=== PATIENT | female | born 1975 | race Caucasian/White ===

== ENCOUNTER → 2025-02-25 | Outpatient (CLI) | payer OTHER, SELFPAY ==
--- NOTE | 2025-02-25 13:30 | EGD_PTH ---
PATIENT: REGULO NAVA LOC: [facility] U#:[id number] AGE/SX: 49/F ROOM: RE02/25/[address]: Dr. Keagan Rivas MD : 1975 BED: DIS: 02/25/2025 SPEC #: [id number] RECD: 02/25/25 14:53 STATUS: BERTHA REQ #: [id number] TORO: 02/25/25 13:[address]: Keagan Rivas DEPT: SURGICAL PATHOLOGY RECD BY: Yanique Blunt ENTERED: 02/26/25 14:55 SP TYPE: EGD BIOPSY OTHR DR: No Primary Care Phys Tissues: A - Duodenum, NOS B - Gastric mucous membrane C - Esophagus, NOS D - Esophagus, NOS Procedures: Immunohistochemical Stains Surgery Specimen Level IV HEADER OPERATION: EGD PRE-OP DIAGNOSIS: Esophageal polyp TISSUE SUBMITTED: A- Duodenum biopsy, B- Antral biopsy, C- Distal esophagus biopsy, D- Mid esophageal biopsy MICROSCOPIC DIAGNOSIS A. Duodenum, biopsy: - Normal villous architecture without increased intraepithelial lymphocytes. B. Antrum, biopsy: - Oxyntic gastric mucosa with features of reactive gastropathy. - IHC negative for H.pylori organisms. C. Distal esophagus, biopsy: - Benign squamous mucosa negative for eosinophils. - No columnar mucosa observed. D. Mid esophagus, biopsy: - Benign squamous mucosa negative for eosinophils. MICROSCOPIC DESCRIPTION Slides are reviewed. All matched controls reacted appropriately. These tests were developed and their performance characteristics determined by [facility]. They may not have been cleared or approved by the [place] Food and Drug Administration. The FDA has determined that such clearance or approval is not necessary.? The above immunohistochemical/dualISH?markers are reviewed by the Pathologist. GROSS DESCRIPTION A. Received in fixative is one container labeled with the patient's name and designated Duodenum biopsy. The specimen consists of two irregular fragments of light mcdaniels soft tissue that in aggregate measure 0.3 x 0.2 x 0.2 cm. The specimen is totally submitted in one cassette. B. Received in fixative is one container labeled with the patient's name and designated Antrum biopsy. The specimen consists of one irregular fragment of light mcdaniels soft tissue that measures 0.6 x 0.5 x 0.2 cm. The specimen is totally submitted in one cassette. C. Received in fixative is one container labeled with the patient's name and designated Distal esophagus biopsy. The specimen consists of two irregular fragments of light mcdaniels soft tissue that in aggregate measure 0.8 x 0.4 x 0.2 cm. The specimen is totally submitted in one cassette. D. Received in fixative is one container labeled with the patient's name and designated Mid esophageal biopsy. The specimen consists of one irregular fragment of light mcdaniels soft tissue that measures 0.5 x 0.3 x 0.1 cm. The specimen is totally submitted in one cassette. MS/mr 02/26/2025 CPT:[id number]
--- OUTSIDE RECORDS SUMMARY | 2025-02-25 20:35 | XMS RPT_ITS | CCD ---
Author Organization [facility] Care Team Providers Care 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 Name Role Phone Haagen MANAGER ACQUISITION.HOOP RIVETING MACHINE OPERATOR HELPER, Dorothea Primary Care Provider HAAGEN, DOROTHEA Primary Care Unavailable JOSHUA, KETTY Referring Unavailable DINORAH FENTON Attending Unavailable DINORAH FENTON Admitting Unavailable Haagen MANAGER ACQUISITION.BARAK, Dorothea Primary Care Provider Haagen MANAGER ACQUISITION.BARAK, Dorothea Primary Care Provider Guero Dejesus Attending Unavailable Borlinnea, Guero Attending Unavailable Borlinnea, Guero Attending Unavailable Borlinnea, Guero Attending Unavailable Haagen MANAGER ACQUISITION.BARAK, [facility] Primary Care Provider HAAGEN, DOROTHEA Referring Unavailable HAAGEN, DOROTHEA Primary Care Unavailable HAAGEN, DOROTHEA Referring Unavailable HAAGEN, DOROTHEA Primary Care Unavailable HAAGEN, DOROTHEA Attending Unavailable HAAGEN, DOROTHEA Primary Care Unavailable HAAGEN, DOROTHEA Referring Unavailable HAAGEN, DOROTHEA Primary Care Unavailable DINORAH FENTON Attending Unavailable HAAGEN, DOROTHEA Primary Care Unavailable HAAGEN, DOROTHEA Referring Unavailable Allergies Allergy Classification Reported Allergen(s) Allergy Type Date of Onset Reaction(s) Facility (18 sources) Acetaminophen / oxyCODONE; Translations: [OXYCODONE-ACETAM INOPHEN] Drug Allergy 8 Rash [facility] Work Phone: (18 sources) meloxicam; Translations: [MELOXICAM] Drug Allergy 3 Swelling, Anaphylaxis [facility] Work Phone: (18 sources) metroNIDAZOLE; Translations: [METRONIDAZOLE] Drug Allergy 2 [facility] Work Phone: (18 sources) Sodium; Translations: [SODIUM] Propensity to adverse reactions to drug 2 Rash [facility] (1 source) Acetaminophen Drug Allergy 4 [facility] (1 source) meloxicam Drug Allergy 4 [facility] (1 source) metroNIDAZOLE Drug Allergy 4 [facility] (1 source) oxyCODONE Drug Allergy 4 [facility] Medications Current Medications Medication Drug Class(es) Dates Sig (Normalized) Sig (Original) amoxicillin 875 mg / clavulanate 125 mg oral tablet (1 source) Penicillin-class Antibacterial Start: 07-01-2022 End: 07-06-2022 take 1 tablet by mouth twice daily amoxicillin-clavula antione acid (AUGMENTIN) 875-125 mg per tablet Indications: Acute rhinosinusitis Take 1 tablet by mouth twice daily for 5 days. 10 tablet 0 07/01/2022 07/06/2022 Active Comment on above: Take 1 tablet by viktoriya twice daily for 5 days. clobetasol propionate 0.5 mg/ml topical solution (7 sources) Corticosteroid Start: 12-25-2022 Clobetasol Propionate (TEMOVATE) 0.05 % external solution APPLY TO THE SCALP NIGHTLY FOR UP TO 2 WEEKS WHEN FLARED, 2-3X WEEKLY FOR MAINTENANCE IF NEEDED 12/25/2022 Active Comment on above: APPLY TO THE SCALP N IGHTLY FOR UP TO 2 WEEKS WHEN FLARED, 2-3X WEEKLY FOR MAINTENANCE IF NEEDED COMPOUNDED PRESCRIPTION (16 sources) COMPOUNDED PRESCRIPTION Taking Plexis supplement for colon, multivitamin and probiotic daily Active COMPOUNDED PRESC RIPTION Taking Plexis supplement for colon, multivitamin and probiotic daily 0 Active Comment on above: Taking Plexis supple ment for colon, multivitamin and probiotic daily ibuprofen 800 mg oral tablet (2 sources) Nonsteroidal Anti-inflammatory Drug take 1 tablet by mouth every eight hours as needed ibuprofen (MOTRIN) 800 mg tablet Take 800 mg by mouth every 8 hours as needed for pain. Active ketoconazole 20 mg/ml medicated shampoo (7 sources) Azole Antifungal Start: 10-31-19 ketoconazole (NIZORAL) 2 % shampoo PLEASE SEE ATTACHED FOR DETAILED DIRECTIONS 10/30/2022 Active Comment on above: PLEASE SEE ATTACHED FOR DETAILED DIRECTIONS omeprazole 20 mg delayed release oral capsule (4 sources) Proton Pump Inhibitor Start: 04-10-20 take 1 capsule by mouth once daily before breakfast omeprazole (PRILOSEC) 20 mg capsule Indications: Heartburn Take 1 capsule by mouth daily before breakfast. 1/2 hr before meal. 30 capsule 3 04/10/2024 Active Completed/Discontinued Medications Medication Drug Class(es) Dates Sig (Normalized) Sig (Original) fluticasone propionate 0.05 mg/actuat metered dose nasal spray (4 sources) Corticosteroid Start: 05-15-2021 take 1 spray(s) nasal route once daily at bedtime fluticasone (FLONASE) 50 mcg/actuation nasal spray Indications: URI, acute Use 1 Leland in each nostril daily at bedtime. 18.2 mL 0 05/15/2021 Active Comment on above: Use 1 Leland in each nostril daily at bedtime. Problems Active Problems Problem Classification Problem Date Documented Da te Episodic/Chronic Diseases of white blood cells (2 sources) Leukocytosis; Translations: [Elevated white blood cell count, unspecified] Onset: 04-28-2024 04-22-2024 Chronic Disorders of lipid metabolism (1 source) Mixed hyperlipidemia; Translations: [Mixed hyperlipidemia] 04-22-2024 Chronic Esophageal disorders (7 sources) Gastro-esophageal reflux disease with esophagitis; Translations: [Gastroesophageal reflux disease with esophagitis without hemorrhage] Onset: 01-31-2023 01-31-2023 Chronic Esophageal disorders (3 sources) Polyp of esophagus; Translations: [Esophageal polyp] 02-19-2023 Episodic Esophageal disorders (1 source) Esophageal disorders; Translations: [Gastroesophageal reflux disease with esophagitis without hemorrhage] Onset: 01-31-2023 Genitourinary symptoms and ill-defined conditions (1 source) Genuine stress incontinence; Translations: [Stress incontinence (female) (male)] Chronic Immunizations and screening for infectious disease (2 sources) Viral screening status; Translations: [Encounter for screening for other viral diseases] Episodic Osteoarthritis (1 source) Unilateral primary osteoarthritis, left knee; Translations: [Unilateral primary osteoarthritis, left knee] Onset: 03-09-2024 Chronic Other diseases of bladder and urethra (1 source) Overactive bladder; Translations: [Overactive bladder] 04-10-2024 Chronic Other diseases of bladder and urethra (1 source) Overactive bladder; Translations: [OAB (overactive bladder)] Onset: 04-10-2024 Chronic Other gastrointestinal disorders (3 sources) Heartburn; Translations: [Heartburn] Episodic Other gastrointestinal disorders (1 source) Dysphagia, unspecified; Translations: [Dysphagia, unspecified type] Onset: 01-31-2023 Episodic Other screening for suspected conditions (not mental disorders or infectious disease) (16 sources) Patient encounter status; Translations: [Encounter for screening for malignant neoplasm of colon] Onset: 01-31-2023 Episodic Other upper respiratory infections (1 source) Acute rhinosinusitis; Translations: [Acute sinusitis, unspecified] Episodic Unclassified (1 source) Esophageal polyp; Translations: [Esophageal polyp] Onset: 02-01-2025 Past or Other Problems Problem Classification Problem Date Documented Da te Episodic/Chronic Abdominal hernia (8 sources) Diaphragmatic hernia without obstruction or gangrene; Translations: [Hiatal hernia] Onset: 01-31-2023 01-31-2023 Episodic Other connective tissue disease (16 sources) Calcaneal spur; Translations: [Calcaneal spur, unspecified foot] Onset: 02-07-2012 02-07-2012 Episodic Other connective tissue disease (16 sources) Plantar fascial fibromatosis; Translations: [Plantar fascial fibromatosis] Onset: 05-12-2013 05-12-2013 Episodic Other gastrointestinal disorders (7 sources) Dysphagia; Translations: [Dysphagia, unspecified] Onset: 01-31-2023 01-31-2023 Episodic Other gastrointestinal disorders (1 source) Heartburn; Translations: [Heartburn] Onset: 04-10-2024 Episodic Results Test Name Value Interpretation Reference Range Facility [facility] 02-01-2025 CNOV Office Visit (LORNA ) REGULO ENRIQUEZ ([id number]) 1975 F Date Time Provider Department 02/01/25 2:00 PM DINORAH FENTON During your visit today, we recorded the following information about you: Temperature Pulse Respiration Blood pressure 99.2 degrees 92/minute 12/minute 126/86 Weight Height 100.2 kg 1.676 m Eli Valenzuela LPN 02/02/2025 3:59 PM Signed REVIEW OF SYSTEMS: General: The patient denies fatigue, denies weight loss, denies weight gain, denies feeling hot, and denies feelings of cold. Eyes: The patient denies glaucoma, denies eye injury/surgery, wears glasses or contacts. Ear/Nose/Throat: The patient denies allergies, denies hayfever, denies ear infections, and denies bloody noses. Cardiovascular: The patient denies chest pain, denies heart disease, denies high blood pressure,denies cardiac stent, denies prior heart attack, denies irregular heart beat, denies high cholesterol, denies poor circulation, denies heart failure, other cardiac issues, denies claudication, denies cold feet, denies peripheral arterial stent. Respiratory: The patient denies tuberculosis, denies pneumonia, denies frequent cough, denies pulmonary embolism, denies shortness of breath, and denies coughing up blood. Gastrointestinal: The patient denies difficulty swallowing, notes acid reflux, denies ulcers, denies vomiting, denies jaundice/hepatitis, denies gallbladder problems, denies black or tarry stools, denies hemorrhoids, denies bleeding from rectum, denies diverticulitis, notes constipation, denies diarrhea, denies loss of stool control, and denies hernias. Kidney/Bladder: The patient denies kidney stones, denies urine infections, and denies bloody urine. Skin: The patient denies a history of skin cancer, denies bleeding/changing moles, and denies a history of skin rash. Neurologic: The patient denies a history of epilepsy/convulsions, denies headaches, denies head/spinal injuries, and denies stroke/TIA. Psychiatric: The patient denies psychiatric medications, denies depression, and denies voices, denies substance abuse. Endocrine: The patient denies thyroid disorders, denies diabetes, and denies hormonal problems. Hematologic: The patient denies a history of bruising, denies bleeding, and denies anemia, denies blood clots. Infections: The patient denies a history of measles and mumps, denies rheumatic fever, and denies sexually transmitted diseases. Musculoskeletal: The patient denies back pain/injury, denies back problems, denies sciatica, notes knee/foot trouble, denies arthritis, or denies gout. When was patient's last Mammogram screening? 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 She requires a follow up surveillance EGD. She denies dysphagia. She denies heartburn. She denies emesis. PAST MEDICAL HISTORY Diagnosis Date Anal fissure RECTAL BLEEDING, PELVIC FLOOR DYSFUNCTION Calcaneal spur Endometriosis Esophageal polyp GERD (gastroesophageal reflux disease) Hiatal hernia refers hx of flap not working properly. PMH - PAST MEDICAL HISTORY OF PELVIC FLOOR DYSFUNCTION Sciatica Seasonal allergies Unspecified hemorrhoids without mention of complication PAST SURGICAL HISTORY Procedure Laterality Date DELIVERY ONLY , low cervical COLONOSCOPY 10/28/2002 COLONOSCOPY 01/31/2023 EGD 01/31/2023 FASCIECTOMY PLANTAR FASCIA PARTIAL SPX 06/12/2014 DR Best FISSURECTOMY INCL SPHINCTEROTOMY WHEN PERFORMED HEMORRHOIDECTOMY NTRNL AND XTRNL 1 COLUMN/GROUP INSERT INTRAUTERINE DEVICE 10/04/2006 [facility] KNEE ARTHROSCOP MENISCUS REPAIR MED/LAT Right 11/10/2024 Dr. Keagan White, [facility] KNEE SURGERY HX Left 08/2020 torn meniscus and some repair work. LAPS ABD PRTMANDOMENTUM DX W/WO SPEC BR/WA SPX Laparoscopy X2 EXPLORATORY LIG/TRNSXJ FLP TUBE ABDL/VAG APPR UNI/BI VAGINAL HYSTERECTOMY UTERUS 250 GM/< 08/14/2007 Hysterectomy, vaginal Current Outpatient Medications Medication Sig ibuprofen (MOTRIN) 800 mg tablet Take 800 mg by mouth every 8 hours as needed for pain. omeprazole (PRILOSEC) 20 mg capsule Take 1 capsule by mouth daily before breakfast. 1/2 hr before meal. Clobetasol Propionate (TEMOVATE) 0.05 % external solution APPLY TO THE SCALP NIGHTLY FOR UP TO 2 WEEKS WHEN FLARED, 2-3X WEEKLY FOR MAINTENANCE IF NEEDED COMPOUNDED PRESCRIPTION Taking Plexis supplement for colon, multivitamin and probiotic daily ketoconazole (NIZORAL) 2 % shampoo PLEASE SEE ATTACHED FOR DETAILED DIRECTIONS ALLERGIES: Metronidazol (more content not included)... Normal [facility] BONY SCREENING W TOMOon 02-01 BONY SCREENING W KYARA * * *Final Report* * * DATE OF EXAM: Feb 01 2025 8:47AM [id number] - BONY SCREENING W KYARA / PROCEDURE REASON: Encounter for screening mammogram for breast cancer * * * * Physician Interpretation * * * * RESULT: [facility] [address] [place] [address] #[id number] - BONY SCREENING W KYARA HISTORY: 49 year-old patient presents for screening. Patient is asymptomatic in both breasts. Patient states no personal history of breast cancer. COMPARISON STUDIES: The present examination has been compared to prior imaging studies dated 04/29/2018 (mammogram), 08/06/2019 (mammogram), 03/13/2021 (mammogram), 04/18/2021 (ultrasound), 04/18/2021 (mammogram), 01/08/2023 (mammogram) and 02/20/2023 (mammogram). MAMMOGRAM TECHNIQUE: The study was acquired using full field digital technology and interpreted from soft copy. Digital Breast Tomosynthesis (DBT) images were obtained and used to assist in the interpretation of this examination. MAMMOGRAM FINDINGS: The breasts are heterogeneously dense, which may obscure small masses. No suspicious masses, calcifications or other abnormalities are seen in either breast. There are no significant interval changes. IMPRESSION: There is no mammographic evidence of malignancy in either breast. Routine screening mammogram is recommended. Annual mammogram will be due in 1 year. BI-RADS Category 1: Negative RISK: Based on the Tyrer-Cuzick (TC) risk assessment model, this patient has a 8.6% lifetime risk of developing breast cancer, meaning they are at average risk for developing breast cancer. However, this is only an estimate based on available history provided on the patient's questionnaire. We encourage all patients to talk with their providers about these results, further recommendations for managing breast health, and appropriate supplemental screening options if the patient has dense breast tissue. Interpreting Radiologist: Dariana Bah M.D. Electronically signed on: 02/02/2025 Software Computer Specialist: PINO Transcribe Date/Time: Feb 01 2025 8:37A Dictated by: DARIANA BAH MD This examination was interpreted and the report reviewed and electronically signed by: DARIANA BAH MD on Feb 02 2025 9:10PM EST [id number] Normal [facility] CBC W Auto Differential pane l (Bld)on 04-28-2024 Basophils (Bld) [#/Vol] 0.03 10*3/uL Normal <0.11 [facility] Comment on above: Order Comment: Specimen Type: BLOOD SPEC IMEN Ordering Facility: [facility] Address: [address] [place] [address] Performed By: #### 5 7021-8 #### [facility] CLIA [id number] [address] [place] [address] [place] Basophils/100 WBC (Bld) 0.4 % Normal [facility] Comment on above: Order Comment: Specimen Type: BLOOD SPEC IMEN Ordering Facility: [facility] Address: [address] [place] [address] Performed By: #### 5 7021-8 #### [facility] CLIA [id number] [address] [place] [address] [place] Differential cell count method Nom (Bld) Auto Normal [facility] Comment on above: Order Comment: Specimen Type: BLOOD SPEC IMEN Ordering Facility: [facility] Address: [address] [place] [address] Performed By: #### 5 7021-8 #### [facility] CLIA [id number] [address] [place] [address] [place] Eosinophils (Bld) [#/Vol] 0.27 10*3/uL Normal <0.46 [facility] Comment on above: Order Comment: Specimen Type: BLOOD SPEC IMEN Ordering Facility: [facility] Address: [address] [place] [address] Performed By: #### 5 7021-8 #### [facility] CLIA [id number] [address] [place] [address] [place] Eosinophils/100 WBC (Bld) 3.8 % Normal [facility] Comment on above: Order Comment: Specimen Type: BLOOD SPEC IMEN Ordering Facility: [facility] Address: [address] [place] [address] Performed By: #### 5 7021-8 #### [facility] CLIA [id number] [address] [place] [address] [place] Erythrocyte distribution width (RBC) [Ratio] 14.6 % Normal 11.5-15.0 [facility] Comment on above: Order Comment: Specimen Type: BLOOD SPEC IMEN Ordering Facility: [facility] Address: [address] [place] [address] Performed By: #### 5 7021-8 #### [facility] CLIA [id number] [address] [place] [address] [place] Hematocrit (Bld) [Volume fraction] 41.5 % Normal 36.0-46.0 [facility] Comment on above: Order Comment: Specimen Type: BLOOD SPEC IMEN Ordering Facility: [facility] Address: [address] [place] [address] Performed By: #### 5 7021-8 #### [facility] CLIA [id number] [address] [place] [address] [place] Hemoglobin (Bld) [Mass/Vol] 13.1 g/dL Normal 11.5-15.5 [facility] Comment on above: Order Comment: Specimen Type: BLOOD SPEC IMEN Ordering Facility: [facility] Address: [address] [place] [address] Performed By: #### 5 7021-8 #### [facility] CLIA [id number] [address] [place] [address] [place] Immature granulocytes (Bld) [#/Vol] 0.04 10*3/uL Normal <0.10 [facility] Comment on above: Order Comment: Specimen Type: BLOOD SPEC IMEN Ordering Facility: [facility] Address: [address] [place] [address] Performed By: #### 5 7021-8 #### [facility] CLIA [id number] [address] [place] [address] [place] Immature granulocytes/100 WBC (Bld) 0.6 % Normal [facility] Comment on above: Order Comment: Specimen Type: BLOOD SPEC IMEN Ordering Facility: [facility] Address: [address] [place] [address] Performed By: #### 5 7021-8 #### [facility] CLIA [id number] [address] [place] [address] [place] Lymphocytes (Bld) [#/Vol] 1.58 10*3/uL Normal 1.00-4.00 [facility] Comment on above: Order Comment: Specimen Type: BLOOD SPEC IMEN Ordering Facility: [facility] Address: [address] [place] [address] Performed By: #### 5 7021-8 #### [facility] CLIA [id number] [address] [place] [address] [place] Lymphocytes/100 WBC (Bld) 22.3 % Normal [facility] Comment on above: Order Comment: Specimen Type: BLOOD SPEC IMEN Ordering Facility: [facility] Address: [address] [place] [address] Performed By: #### 5 7021-8 #### [facility] CLIA [id number] [address] [place] [address] [place] MCH (RBC) [Entitic mass] 26.9 pg Normal 26.0-34.0 [facility] Comment on above: Order Comment: Specimen Type: BLOOD SPEC IMEN Ordering Facility: [facility] Address: [address] [place] [address] Performed By: #### 5 7021-8 #### [facility] CLIA [id number] [address] [place] [address] [place] MCHC (RBC) [Mass/Vol] 31.6 g/dL Normal 30.5-36.0 [facility] Comment on above: Order Comment: Specimen Type: BLOOD SPEC IMEN Ordering Facility: [facility] Address: [address] [place] [address] Performed By: #### 5 7021-8 #### [facility] CLIA [id number] [address] [place] [address] [place] MCV (RBC) [Entitic vol] 85.2 fL Normal 80.0-100.0 [facility] Comment on above: Order Comment: Specimen Type: BLOOD SPEC IMEN Ordering Facility: [facility] Address: [address] [place] [address] Performed By: #### 5 7021-8 #### [facility] CLIA [id number] [address] [place] [address] [place] Monocytes (Bld) [#/Vol] 0.76 10*3/uL Normal <0.87 [facility] Comment on above: Order Comment: Specimen Type: BLOOD SPEC IMEN Ordering Facility: [facility] Address: [address] [place] [address] Performed By: #### 5 7021-8 #### [facility] CLIA [id number] [address] [place] [address] [place] Monocytes/100 WBC (Bld) 10.7 % Normal [facility] Comment on above: Order Comment: Specimen Type: BLOOD SPEC IMEN Ordering Facility: [facility] Address: [address] [place] [address] Performed By: #### 5 7021-8 #### [facility] CLIA [id number] [address] [place] [address] [place] Neutrophils (Bld) [#/Vol] 4.41 10*3/uL Normal 1.45-7.50 [facility] Comment on above: Order Comment: Specimen Type: BLOOD SPEC IMEN Ordering Facility: [facility] Address: [address] [place] [address] Performed By: #### 5 7021-8 #### [facility] CLIA [id number] [address] [place] [address] [place] Neutrophils/100 WBC (Bld) 62.2 % Normal [facility] Comment on above: Order Comment: Specimen Type: BLOOD SPEC IMEN Ordering Facility: [facility] Address: [address] [place] [address] Performed By: #### 5 7021-8 #### [facility] CLIA [id number] [address] [place] [address] [place] Nucleated RBC (Bld) [#/Vol] 10*3/uL Normal <0.01 [facility] Comment on above: Order Comment: Specimen Type: BLOOD SPEC IMEN Ordering Facility: [facility] Address: [address] [place] [address] Performed By: #### 5 7021-8 #### [facility] CLIA [id number] [address] [place] [address] [place] Nucleated RBC/100 WBC (Bld) [Ratio] 0.0 /100 WBC Normal [facility] Comment on above: Order Comment: Specimen Type: BLOOD SPEC IMEN Ordering Facility: [facility] Address: [address] [place] [address] Performed By: #### 5 7021-8 #### [facility] CLIA [id number] [address] [place] [address] [place] Platelet mean volume (Bld) [Entitic vol] 10.4 fL Normal 9.0-12.7 [facility] Comment on above: Order Comment: Specimen Type: BLOOD SPEC IMEN Ordering Facility: [facility] Address: [address] [place] [address] Performed By: #### 5 7021-8 #### [facility] CLIA [id number] [address] [place] [address] [place] Platelets (Bld) [#/Vol] 466 10*3/uL High 150-400 [facility] Comment on above: Order Comment: Specimen Type: BLOOD SPEC IMEN Ordering Facility: [facility] Address: [address] [place] [address] Performed By: #### 5 7021-8 #### [facility] CLIA [id number] [address] [place] [address] [place] RBC (Bld) [#/Vol] 4.87 10*6/uL Normal 3.90-5.20 [facility] Comment on above: Order Comment: Specimen Type: BLOOD SPEC IMEN Ordering Facility: [facility] Address: [address] [place] [address] Performed By: #### 5 7021-8 #### [facility] CLIA [id number] [address] [place] [address] [place] WBC (Bld) [#/Vol] 7.09 10*3/uL Normal 3.70-11.00 [facility] [facility] Comment on above: Order Comment: Specimen Type: BLOOD SPEC IMEN Ordering Facility: [facility] Address: [address] [place] [address] Performed By: #### 5 7021-8 #### [facility] CLIA [id number] [address] [place] [address] [place] Harley 04-22-2024 BARAKN Telephone (FAMPWS) REGULO ENRIQUEZ ([id number]) 1975 F Date Time Provider Department 04/22/24 DOROTHEA BAUMANN During your visit today, we recorded the following information about you: Dorothea Baumann APRN.CNP 04/22/2024 2:58 PM Signed Can please let patient know that I received her lab results. Her cholesterol level is elevated. Please really work on healthy diet/exercise. Can we send her information on a low cholesterol diet, please. Her white blood count was just a little elevated. Any recent infections or colds? Lets have her repeat this in a couple of weeks to ensure that it has returned to normal. Everything else looked okay. Dorothea Baumann APRN.CNP The 10-year ASCVD risk score (Reji DK, et al., 2019) is: 1% Values used to calculate the score: Age: 48 years Sex: Female Is Non- : No Diabetic: No Tobacco smoker: No Systolic Blood Pressure: 110 mmHg Is BP treated: No HDL Cholesterol: 58 mg/dL Total Cholesterol: 274 mg/dL Zaki Gaitan LPN 04/22/2024 3:49 PM Signed TC to pt, notified of response/provider response. Pt denies any infections or colds. She will return in the next few weeks to repeat labs. Zaki Gaitan LPN Allergies As of Date: 04/22/2024 Noted Allergy Reaction METRONIDAZOLE 07/29/2002 Comments: had flagyl in IV as noted above MOBIC (MELOXICAM) 03/10/2013 7 - Swelling 10 - Anaphylaxis PERCOCET (OXYCODONE-ACETAMINOPHEN)08/12 2 - Rash SODIUM 07/01/2002 2 - Rash Comments: Itching and Rash - patient notes it was sodium as part of a topical medication. Date Reviewed: 04/10/2024 Reviewed by: Zaki Gaitan LPN - Fully Assessed Reason for Visit: Results [95] Primary Visit Diagnosis:Hyperlipidemia, mixed [E78.2] Other Visit Diagnosis:Leukocytosis, unspecified type [D72.829] Order(s):LIPID PANEL BASIC [SQLIPB] Order #: [id number] FUTURE COMPLETE BLOOD COUNT AND DIFFERENTIAL [SQCBCDIF] Order #: [id number] FUTURE Prescriptions as of 04/22/2024 - omeprazole (PRILOSEC) 20 mg capsule Take 1 capsule by mouth daily before breakfast. 1/2 hr before meal. - ketoconazole (NIZORAL) 2 % shampoo PLEASE SEE ATTACHED FOR DETAILED DIRECTIONS - Clobetasol Propionate (TEMOVATE) 0.05 % external solution APPLY TO THE SCALP NIGHTLY FOR UP TO 2 WEEKS WHEN FLARED, 2-3X WEEKLY FOR MAINTENANCE IF NEEDED - COMPOUNDED PRESCRIPTION Taking Plexis supplement for colon, multivitamin and probiotic daily Facility-Administered Medications as of 04/22/2024 - propofol injection (DIPRIVAN) - lidocaine 100 mg/5 mL (2 %) IV syringe - ondansetron (PF) injection (ZOFRAN) Meds Comments as of 01/06/2016: Dr. Hunt's Essentials Colon Start Plus, 2 capsules daily. Problem List As Of Date 04/22/2024 Noted Resolved Calcaneal spur [M77.30] 02/07/2012 Plantar fascial fibromatosis [M72.2] 05/12/2013 Dysphagia [R13.10] 01/31/2023 Gastroesophageal reflux disease with esophagiti*01/31/2023 Hiatal hernia [K44.9] 01/31/2023 Special screening for malignant neoplasms, colo*01/31/2023 Encounter Status:Closed by ZAKI GAITAN on 04/22/24 Normal [facility] CBC W Auto Differential pane l (Bld)on 04-20-2024 Basophils (Bld) [#/Vol] 0.04 10*3/uL Normal <0.11 [facility] Comment on above: Order Comment: Specimen Type: BLOOD SPEC IMEN Ordering Facility: [facility] Address: [address] [place] [address] Performed By: #### 5 7021-8 #### [facility] CLIA [id number] [address] [place] [address] [place] [address] [place] Basophils/100 WBC (Bld) 0.3 % Normal [facility] Comment on above: Order Comment: Specimen Type: BLOOD SPEC IMEN Ordering Facility: [facility] Address: [address] [place] [address] Performed By: #### 5 7021-8 #### [facility] CLIA [id number] [address] [place] [address] [place] Differential cell count method Nom (Bld) Auto Normal [facility] Comment on above: Order Comment: Specimen Type: BLOOD SPEC IMEN Ordering Facility: [facility] Address: [address] [place] [address] Performed By: #### 5 7021-8 #### [facility] CLIA [id number] [address] [place] [address] [place] Eosinophils (Bld) [#/Vol] 0.19 10*3/uL Normal <0.46 [facility] Comment on above: Order Comment: Specimen Type: BLOOD SPEC IMEN Ordering Facility: [facility] Address: [address] [place] [address] Performed By: #### 5 7021-8 #### [facility] CLIA [id number] [address] [place] [address] [place] Eosinophils/100 WBC (Bld) 1.5 % Normal [facility] Comment on above: Order Comment: Specimen Type: BLOOD SPEC IMEN Ordering Facility: [facility] Address: [address] [place] [address] Performed By: #### 5 7021-8 #### [facility] CLIA [id number] [address] [place] [address] [place] Erythrocyte distribution width (RBC) [Ratio] 14.9 % Normal 11.5-15.0 [facility] Comment on above: Order Comment: Specimen Type: BLOOD SPEC IMEN Ordering Facility: [facility] Address: [address] [place] [address] Performed By: #### 5 7021-8 #### [facility] CLIA [id number] [address] [place] [address] [place] Hematocrit (Bld) [Volume fraction] 42.9 % Normal 36.0-46.0 [facility] Comment on above: Order Comment: Specimen Type: BLOOD SPEC IMEN Ordering Facility: [facility] Address: [address] [place] [address] Performed By: #### 5 7021-8 #### [facility] CLIA [id number] [address] [place] [address] [place] Hemoglobin (Bld) [Mass/Vol] 13.6 g/dL Normal 11.5-15.5 [facility] Comment on above: Order Comment: Specimen Type: BLOOD SPEC IMEN Ordering Facility: [facility] Address: [address] [place] [address] Performed By: #### 5 7021-8 #### [facility] CLIA [id number] [address] [place] [address] [place] Immature granulocytes (Bld) [#/Vol] 0.21 10*3/uL High <0.10 [facility] Comment on above: Order Comment: Specimen Type: BLOOD SPEC IMEN Ordering Facility: [facility] Address: [address] [place] [address] Performed By: #### 5 7021-8 #### [facility] CLIA [id number] [address] [place] [address] [place] Immature granulocytes/100 WBC (Bld) 1.6 % Normal [facility] Comment on above: Order Comment: Specimen Type: BLOOD SPEC IMEN Ordering Facility: [facility] Address: [address] [place] [address] Performed By: #### 5 7021-8 #### [facility] CLIA [id number] [address] [place] [address] [place] Lymphocytes (Bld) [#/Vol] 1.46 10*3/uL Normal 1.00-4.00 [facility] Comment on above: Order Comment: Specimen Type: BLOOD SPEC IMEN Ordering Facility: [facility] Address: [address] [place] [address] Performed By: #### 5 7021-8 #### [facility] CLIA [id number] [address] [place] [address] [place] Lymphocytes/100 WBC (Bld) 11.4 % Normal [facility] Comment on above: Order Comment: Specimen Type: BLOOD SPEC IMEN Ordering Facility: [facility] Address: [address] [place] [address] Performed By: #### 5 7021-8 #### [facility] CLIA [id number] [address] [place] [address] [place] MCH (RBC) [Entitic mass] 27.4 pg Normal 26.0-34.0 [facility] Comment on above: Order Comment: Specimen Type: BLOOD SPEC IMEN Ordering Facility: [facility] Address: [address] [place] [address] Performed By: #### 5 7021-8 #### [facility] CLIA [id number] [address] [place] [address] [place] MCHC (RBC) [Mass/Vol] 31.7 g/dL Normal 30.5-36.0 [facility] Comment on above: Order Comment: Specimen Type: BLOOD SPEC IMEN Ordering Facility: [facility] Address: [address] [place] [address] Performed By: #### 5 7021-8 #### [facility] CLIA [id number] [address] [place] [address] [place] MCV (RBC) [Entitic vol] 86.5 fL Normal 80.0-100.0 [facility] Comment on above: Order Comment: Specimen Type: BLOOD SPEC IMEN Ordering Facility: [facility] Address: [address] [place] [address] Performed By: #### 5 7021-8 #### [facility] CLIA [id number] [address] [place] [address] [place] Monocytes (Bld) [#/Vol] 0.81 10*3/uL Normal <0.87 [facility] Comment on above: Order Comment: Specimen Type: BLOOD SPEC IMEN Ordering Facility: [facility] Address: [address] [place] [address] Performed By: #### 5 7021-8 #### [facility] CLIA [id number] [address] [place] [address] [place] Monocytes/100 WBC (Bld) 6.3 % Normal [facility] Comment on above: Order Comment: Specimen Type: BLOOD SPEC IMEN Ordering Facility: [facility] Address: [address] [place] [address] Performed By: #### 5 7021-8 #### [facility] CLIA [id number] [address] [place] [address] [place] Neutrophils (Bld) [#/Vol] 10.15 10*3/uL High 1.45-7.50 [facility] Comment on above: Order Comment: Specimen Type: BLOOD SPEC IMEN Ordering Facility: [facility] Address: [address] [place] [address] Performed By: #### 5 7021-8 #### [facility] CLIA [id number] [address] [place] [address] [place] Neutrophils/100 WBC (Bld) 78.9 % Normal [facility] Comment on above: Order Comment: Specimen Type: BLOOD SPEC IMEN Ordering Facility: [facility] Address: [address] [place] [address] Performed By: #### 5 7021-8 #### [facility] CLIA [id number] [address] [place] [address] [place] Nucleated RBC (Bld) [#/Vol] 10*3/uL Normal <0.01 [facility] Comment on above: Order Comment: Specimen Type: BLOOD SPEC IMEN Ordering Facility: [facility] Address: [address] [place] [address] Performed By: #### 5 7021-8 #### [facility] CLIA [id number] [address] [place] [address] [place] Nucleated RBC/100 WBC (Bld) [Ratio] 0.0 /100 WBC Normal [facility] Comment on above: Order Comment: Specimen Type: BLOOD SPEC IMEN Ordering Facility: [facility] Address: [address] [place] [address] Performed By: #### 5 7021-8 #### [facility] CLIA [id number] [address] [place] [address] [place] Platelet mean volume (Bld) [Entitic vol] 10.2 fL Normal 9.0-12.7 [facility] Comment on above: Order Comment: Specimen Type: BLOOD SPEC IMEN Ordering Facility: [facility] Address: [address] [place] [address] Performed By: #### 5 7021-8 #### [facility] CLIA [id number] [address] [place] [address] [place] Platelets (Bld) [#/Vol] 465 10*3/uL High 150-400 [facility] Comment on above: Order Comment: Specimen Type: BLOOD SPEC IMEN Ordering Facility: [facility] Address: [address] [place] [address] Performed By: #### 5 7021-8 #### [facility] CLIA [id number] [address] [place] [address] [place] RBC (Bld) [#/Vol] 4.96 10*6/uL Normal 3.90-5.20 [facility] Comment on above: Order Comment: Specimen Type: BLOOD SPEC IMEN Ordering Facility: [facility] Address: [address] [place] [address] Performed By: #### 5 7021-8 #### [facility] CLIA [id number] [address] [place] [address] [place] WBC (Bld) [#/Vol] 12.86 10*3/uL High 3.70-11.00 [facility] Comment on above: Order Comment: Specimen Type: BLOOD SPEC IMEN Ordering Facility: [facility] Address: [address] [place] [address] Performed By: #### 5 7021-8 #### [facility] CLIA [id number] [address] [place] [address] [place] Comprehensive metabolic 2000 panelon 04-20-2024 Albumin [Mass/Vol] 4.1 g/dL Normal 3.9-4.9 [facility] Comment on above: Order Comment: Specimen Type: BLOOD SPEC IMEN Ordering Facility: [facility] Address: [address] [place] [address] Performed By: #### 2 4331-1, 74173-5 #### [facility] CLIA [id number] [address] [place] [address] [place] ALP [Catalytic activity/Vol] 93 U/L Normal 34-123 [facility] Comment on above: Order Comment: Specimen Type: BLOOD SPEC IMEN Ordering Facility: [facility] Address: [address] [place] [address] Performed By: #### 2 4331-1, 04588-6 #### [facility] CLIA [id number] [address] [place] [address] [place] ALT [Catalytic activity/Vol] 27 U/L Normal 7-38 [facility] Comment on above: Order Comment: Specimen Type: BLOOD SPEC IMEN Ordering Facility: [facility] Address: [address] [place] [address] Performed By: #### 2 4331-1, 22158-7 #### [facility] CLIA [id number] [address] [place] [address] [place] Anion gap [Moles/Vol] 12 mmol/L Normal 8-15 [facility] Comment on above: Order Comment: Specimen Type: BLOOD SPEC IMEN Ordering Facility: [facility] Address: [address] [place] [address] Performed By: #### 2 4331-1, 17978-6 #### [facility] CLIA [id number] [address] [place] [address] [place] AST [Catalytic activity/Vol] 26 U/L Normal 13-35 [facility] Comment on above: Order Comment: Specimen Type: BLOOD SPEC IMEN Ordering Facility: [facility] Address: [address] [place] [address] Performed By: #### 2 4331-1, 86072-4 #### [facility] CLIA [id number] [address] [place] [address] [place] Bilirubin [Mass/Vol] 0.3 mg/dL Normal 0.2-1.3 [facility] Comment on above: Order Comment: Specimen Type: BLOOD SPEC IMEN Ordering Facility: [facility] Address: [address] [place] [address] Performed By: #### 2 4331-1, 53555-8 #### [facility] CLIA [id number] [address] [place] [address] [place] Calcium [Mass/Vol] 10.1 mg/dL Normal 8.5-10.2 [facility] Comment on above: Order Comment: Specimen Type: BLOOD SPEC IMEN Ordering Facility: [facility] Address: [address] [place] [address] Performed By: #### 2 4331-1, 74390-0 #### [facility] CLIA [id number] [address] [place] [address] [place] Chloride [Moles/Vol] 101 mmol/L Normal 98-107 [facility] Comment on above: Order Comment: Specimen Type: BLOOD SPEC IMEN Ordering Facility: [facility] Address: [address] [place] [address] Performed By: #### 2 4331-1, 56108-9 #### [facility] CLIA [id number] [address] [place] [address] [place] CO2 [Moles/Vol] 24 mmol/L Normal 22-30 [facility] Comment on above: Order Comment: Specimen Type: BLOOD SPEC IMEN Ordering Facility: [facility] Address: [address] [place] [address] Performed By: #### 2 4331-1, #### [facility] CLIA [id number] [address] [place] [address] [place] Creatinine [Mass/Vol] 0.70 mg/dL Normal 0.58-0.96 [facility] Comment on above: Order Comment: Specimen Type: BLOOD SPEC IMEN Ordering Facility: [facility] Address: [address] [place] [address] Performed By: #### 2 4331-1, 30353-2 #### [facility] CLIA [id number] [address] [place] [address] [place] Creatinine and Glomerular filtration rate.predicted panel (S/P/Bld) 108 mL/min/1.73m??? Normal >=60 [facility] Comment on above: Order Comment: Specimen Type: BLOOD SPEC IMEN Ordering Facility: [facility] Address: [address] [place] [address] Result Comment: Aida mated Glomerular Filtration Rate (eGFR) is calculated using the 2020 CKD-EPI creatinine equation. This equation utilizes serum creatinine, sex, and age as parameters. The creatinine assay has traceable calibration to isotope dilution-mass spectrometry. Refer to KDIGO guidelines for clinical interpretation. In patients with unstable renal function, e.g. those with acute kidney injury, the eGFR may not accurately reflect actual GFR. Performed By: #### 2 4331-1, 80632-4 #### [facility] CLIA [id number] [address] [place] [address] [place] Glucose [Mass/Vol] 96 mg/dL Normal 74-99 [facility] Comment on above: Order Comment: Specimen Type: BLOOD SPEC IMEN Ordering Facility: [facility] Address: [address] [place] [address] Result Comment: The [place] [employer] (ADA) provides guidance for cutoff values for fasting glucose and random glucose. The ADA defines fasting as no caloric intake for at least 8 hours. Fasting plasma glucose results between 100 to 125 mg/dL indicate increased risk for diabetes (prediabetes). Fasting plasma glucose results greater than or equal to 126 mg/dL meet the criteria for diagnosis of diabetes. In the absence of unequivocal hyperglycemia, results should be confirmed by repeat testing. In a patient with classic symptoms of hyperglycemia or hyperglycemic crisis, random plasma glucose results greater than or equal to 200 mg/dL meet the criteria for diagnosis of diabetes. Reference: Standards of Medical Care in Diabetes 2016, [place] [employer]. Diabetes Care. 2016.39(Suppl 1). Performed By: #### 2 4331-1, 46230-6 #### [facility] CLIA [id number] [address] [place] [address] [place] Potassium [Moles/Vol] 4.2 mmol/L Normal 3.7-5.1 [facility] Comment on above: Order Comment: Specimen Type: BLOOD SPEC IMEN Ordering Facility: [facility] Address: [address] [place] [address] Performed By: #### 2 4331-1, 27715-6 #### [facility] CLIA [id number] [address] [place] [address] [place] Protein [Mass/Vol] 7.3 g/dL Normal 6.3-8.0 [facility] Comment on above: Order Comment: Specimen Type: BLOOD SPEC IMEN Ordering Facility: [facility] Address: [address] [place] [address] Performed By: #### 2 4331-1, 86819-5 #### [facility] CLIA [id number] [address] [place] [address] [place] Sodium [Moles/Vol] 137 mmol/L Normal 136-144 [facility] Comment on above: Order Comment: Specimen Type: BLOOD SPEC IMEN Ordering Facility: [facility] Address: [address] [place] [address] Performed By: #### 2 4331-1, 48335-1 #### [facility] CLIA [id number] [address] [place] [address] [place] Urea nitrogen [Mass/Vol] 14 mg/dL Normal 7-21 [facility] Comment on above: Order Comment: Specimen Type: BLOOD SPEC IMEN Ordering Facility: [facility] Address: [address] [place] [address] Performed By: #### 2 4331-1, #### [facility] CLIA [id number] [address] [place] [address] [place] Lipid 1996 panelon 4 Cholesterol [Mass/Vol] 274 mg/dL High <200 [facility] Comment on above: Order Comment: Specimen Type: BLOOD SPEC IMEN Ordering Facility: [facility] Address: [address] [place] [address] Result Comment: <200 mg/dL, Desirable 200-239 mg/dL, Borderline high >239 mg/dL, High Performed By: #### 2 4331-1, 29018-4 #### [facility] CLIA [id number] [address] [place] [address] [place] Cholesterol in HDL [Mass/Vol] 58 mg/dL Normal >39 [facility] Comment on above: Order Comment: Specimen Type: BLOOD SPEC IMEN Ordering Facility: [facility] Address: [address] [place] [address] Result Comment: 40-5 9 mg/dL, Acceptable >59 mg/dL, High: Negative risk factor for coronary heart disease <40 mg/dL, Low: Positive risk factor for coronary heart disease Performed By: #### 2 4331-1, 87641-2 #### [facility] CLIA [id number] [address] [place] [address] [place] Cholesterol in LDL [Mass/Vol] 188 mg/dL High <100 [facility] Comment on above: Order Comment: Specimen Type: BLOOD SPEC IMEN Ordering Facility: [facility] Address: [address] [place] [address] Result Comment: <100 mg/dL, Optimal 100-129 mg/dL, Near optimal/above optimal 130-159 mg/dL, Borderline high 160-189 mg/dL, High >189 mg/dL, Very high Secondary prevention optimal LDL Cholesterol levels are recommended to be < 70 mg/dL Performed By: #### 2 4331-1, 01017-6 #### [facility] CLIA [id number] [address] [place] [address] [place] [facility] Cholesterol in LDL/Cholesterol in HDL [Mass ratio] 3.24 {ratio} High <2.54 [facility] Comment on above: Order Comment: Specimen Type: BLOOD SPEC IMEN Ordering Facility: [facility] Address: [address] [place] [address] Result Comment: Refe rence: 1. National Cholesterol Education Program ATP III Guideline At-A-Glance Quick Desk Reference: National Heart, Lung, and Blood [facility]. National Institutes of Health. 2001: NIH Publication No. 01-3305. 2. An International Atherosclerosis Society position paper: global recommendations for the management of dyslipidemia: executive summary, Atherosclerosis. 2014: 232(2):410-413. Performed By: #### 2 4331-1, 82752-5 #### [facility] CLIA [id number] [address] [place] [address] [place] Cholesterol in VLDL [Mass/Vol] 28 mg/dL Normal <30 [facility] Comment on above: Order Comment: Specimen Type: BLOOD SPEC IMEN Ordering Facility: [facility] Address: [address] [id number] Performed By: #### 2 4331-1, #### [facility] CLIA [id number] [address] [place] [address] [place] Cholesterol non HDL [Mass/Vol] 216 mg/dL High <130 [facility] Comment on above: Order Comment: Specimen Type: BLOOD SPEC IMEN Ordering Facility: [facility] Address: [address] [place] [address] Result Comment: <130 mg/dL, Optimal 130-159 mg/dL, Near optimal/above optimal 160-189 mg/dL, Borderline high 190-219 mg/dL, High >219 mg/dL, Very high Secondary prevention optimal non HDL Cholesterol levels are recommended to be <100 mg/dL Performed By: #### 2 4331-1, #### [facility] CLIA [id number] [address] [place] [address] [place] Cholesterol.tota l/Cholesterol in HDL [Mass ratio] 4.72 {ratio} Normal <5.10 [facility] Comment on above: Order Comment: Specimen Type: BLOOD SPEC IMEN Ordering Facility: [facility] Address: [address] [place], [place] [id number] Performed By: #### 2 4331-1, #### [facility] CLIA [id number] [address] [place] [address] [place] FASTING TIME 12 hrs Normal [facility] Comment on above: Order Comment: Specimen Type: BLOOD SPEC IMEN Ordering Facility: [facility] Address: [address] [place], [place] [address] Performed By: #### 2 4331-1, #### [facility] CLIA [id number] [address] [place] [address] [place] Triglyceride [Mass/Vol] 140 mg/dL Normal <150 [facility] Comment on above: Order Comment: Specimen Type: BLOOD SPEC IMEN Ordering Facility: [facility] Address: [address], [place] [address] Result Comment: <150 mg/dL, Normal 150-199 mg/dL, Borderline high 200-499 mg/dL, High >499 mg/dL, Very high Performed By: #### 2 4331-1, 68217-5 #### [facility] CLIA [id number] [address] [place] [id number] [facility] CNOVon 04-10-2024 CNOV Office Visit (FAMPWS ) ZOEREGULO ([id number]) 1975 F Date Time Provider Department 04/10/24 1:00 PM DOROTHEA BAUMANN During your visit today, we recorded the following information about you: Pulse Respiration Blood pressure Weight 85/minute 16/minute 110/86 96.2 kg Height 1.66 m Dorothea Baumann 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 Patient presents with: Yearly Exam Pt presents today for physical. No problems/concerns. Seeing ortho for knees -- just had series of gel injections. REVIEW OF SYSTEMS GENERAL: No weight loss, malaise or fevers/chills HEENT: Negative for frequent or significant headaches, No changes in hearing or vision. Occ headache resolved with OTC medication. NECK: Negative for lumps, goiter, pain and significant neck swelling RESPIRATORY: Negative for cough, hemoptysis, wheezing, dyspnea or shortness of breath CARDIOVASCULAR: Negative for chest pain, leg swelling, orthopnea, or palpitations GI: No nausea, vomiting, or diarrhea/constipation. No hematochezia/melena. + heartburn -- had EGD last year -- notices most when she lays down at night. : No history of dysuria, frequency or incontinence. Gets some urgency. Gets some mixed leakage. MUSCULOSKELETAL: + left knee pain -- see above. SKIN: Negative for lesions, rash, and itching. + scalp psoriasis. ENDOCRINE: Negative for cold or heat intolerance, polyuria, polydipsia and goiter NEURO: No history of syncope, paralysis, seizures or tremors PAST MEDICAL HISTORY: PAST MEDICAL HISTORY No date: Anal fissure Comment: RECTAL BLEEDING, PELVIC FLOOR DYSFUNCTION No date: Calcaneal spur No date: Endometriosis No date: GERD (gastroesophageal reflux disease) No date: Hiatal hernia Comment: refers hx of flap not working properly. No date: PMH - PAST MEDICAL HISTORY OF Comment: PELVIC FLOOR DYSFUNCTION No date: Sciatica No date: Seasonal allergies No date: Unspecified hemorrhoids without mention of complication PAST SURGICAL HISTORY No date: DELIVERY ONLY Comment: , low cervical 10/28/2002: COLONOSCOPY 01/31/2023: COLONOSCOPY 01/31/2023: EGD 06/12/2014: FASCIECTOMY PLANTAR FASCIA PARTIAL SPX Comment: DR Best No date: FISSURECTOMY INCL SPHINCTEROTOMY WHEN PERFORMED No date: HEMORRHOIDECTOMY NTRNL AND XTRNL 1 COLUMN/GROUP 10/04/2006: INSERT INTRAUTERINE DEVICE Comment: Mirena 08/2020: KNEE SURGERY HX; Left Comment: torn meniscus and some repair work. No date: LAPS ABD PRTMANDOMENTUM DX W/WO SPEC BR/WA SPX Comment: Laparoscopy X2 EXPLORATORY No date: LIG/TRNSXJ FLP TUBE ABDL/VAG APPR UNI/BI 08/14/2007: VAGINAL HYSTERECTOMY UTERUS 250 GM/< Comment: Hysterectomy, vaginal ALLERGIES Metronidazole, Mobic [Meloxicam], Percocet [Oxycodone-Acetaminophen], and Sodium MEDICATIONS Current Outpatient Medications Medication Sig ketoconazole (NIZORAL) 2 % shampoo PLEASE SEE ATTACHED FOR DETAILED DIRECTIONS Clobetasol Propionate (TEMOVATE) 0.05 % external solution APPLY TO THE SCALP NIGHTLY FOR UP TO 2 WEEKS WHEN FLARED, 2-3X WEEKLY FOR MAINTENANCE IF NEEDED COMPOUNDED PRESCRIPTION Taking Plexis supplement for colon, multivitamin and probiotic daily No current facility-administered medications for this visit. Facility-Administered Medications Ordered in Other Visits Medication Dose Route Frequency propofol injection (DIPRIVAN) INTRAVENOUS PRN lidocaine 100 mg/5 mL (2 %) IV syringe INTRAVENOUS PRN ondansetron (PF) injection (ZOFRAN) INTRAVENOUS PRN FAMILY HISTORY Problem Relation Age of Onset other (ULCERATIVE COLITIS [Other]) Maternal Aunt other (HYDROCEPHALY [Other]) Other Pat Cousin other (CVA [Other]) Paternal Grandfather other (Other [Other]) Other No breast/technical implementation lead/colon cancer Social History Tobacco Use Smoking status: Never Smokeless tobacco: Never Substance Use Topics Alcohol use: No Drug use: No EXAM: BP 110/86 Pulse 85 Resp 16 Ht 166 cm (5' 5.35) Wt 96.2 kg (212 lb) LMP 10/03/2006 SpO2 94% BMI 34.90 kg/m? PHYSICAL EXAM: General Appearance: Well appearing, alert, in no acute distress, well-hydrated, well nourished.. Skin: Skin color, texture, turgor normal, no suspicious rashes or lesions. Head: Normocephalic, no masses, lesions, tenderness or abnormalities. Eyes: Anicteric sclera. Pupils are equally round and reactive to light. Extraocular movements are intact. . Ears: External ears normal, canals clear. Normal TMs bilaterally. Oropharynx: Lips, mucosa, and tongue normal, teeth and gums normal, oropharynx normal. Neck: Supple, no adenopathy; thyroid symmetric, normal size, no bruits. Lungs: Lungs clear to auscultation. No wheezing, rhonchi, rales.. (more content not included)... Normal [facility] Orthopedic Visit Reporton Orthopedic Visit Report [facility] [address] [place] [address] OFFICE VISIT Date of Service: 03/09/24 MR#: [id number] Acct: [id number] Name: REGULO ENRIQUEZ Rep #: [id number] : 1975 Provider: Dr. Guero cardona DO Age/Sex: 48/F Location: [facility] Status: Signed Intake Vital Signs 02/05/24 09:40 02/21/24 10:20 Height 5 ft 6 in 5 ft 6 in Intake Visit Reasons: LEFT KNEE Chief Complaint: Left Knee 3rd Supartz Accompanied by: Self Is patient in pain?: Yes Allergies acetaminophen (From Percocet) Adverse Reaction (Verified 03/09/24 10:38) Rash meloxicam (From Mobic) Adverse Reaction (Verified 03/09/24 10:38) Anaphylaxis metronidazole (From Flagyl) Adverse Reaction (Verified 03/09/24 10:38) Rash oxycodone (From Percocet) Adverse Reaction (Verified 03/09/24 10:38) Rash Medications ???Medication ???Instructions ???Recorded ???Confirmed ???Type celecoxib 200 mg capsule (Celebrex) 200 mg PO DAILY #30 caps 02/05/24 03/09/24 Rx clobetasol 0.05 % scalp solution topical 02/05/24 03/09/24 History ketoconazole 2 % shampoo topical 02/05/24 03/09/24 History PFSH Medical History delivery delivered Endometriosis Surgical History History of hernia surgery H/O laparoscopy H/O: hysterectomy History of bowel diversion surgery H/O foot surgery H/O knee surgery Social History household members: spouse and children Smoking Status: Never smoker alcohol intake: current alcohol intake frequency: holidays/special occasions only HPI LEFT KNEE Details: This documentation accurately reflects the service provided and the decisions made by me, Dr. Guero Dejesus, DO 03/09/24 0752. Part of today???s visit was documented by [ ], acting as scribe. REGULO ENRIQUEZ is a 48 year old F here today for 3rd Supartz injection. No reaction to the other 2 injections. Ortho Exam General General: Yes no acute distress and Yes well groomed Neurologic: Yes alert and Yes oriented x3 Psychologic: Yes reasonable and appropriate Left Knee Skin/Wound: Yes CDI, No ecchymosis, No erythema and No swelling Knee ROM: Yes ROM-Extension -20 to 0 (3) and Yes ROM-Flexion 0-140 (118) Examination: Yes med jt line tenderness, No Lat jt line tenderness, No Crepitus, No Fabio's Test, No TTP Pes Anserine and No Illiotibial band tenderness Stability: NML: Anterior Drawer, NML: Posterior Drawer, NML: Valgus 0, NML: Valgus 30, NML: Varus 0 and NML: Varus 30 Patella Grind: No KNEE: pain mostly medial, lateral and posterior knee no joint effusion Office Procedures Ortho Injections Injections Is this patient provided medication?: Yes Details: Obtained consent for injection. Under sterile conditions, injected the patients left knee with 2.5ml Supartz injection. The patient tolerated the injection well without any noted complication. Patient should call our office if redness develops, pain worsens or if they have any concerns. Office Meds Supartz FX 10 mg/mL intra-articular syringe Performing Provider: Guero Dejesus DO Performing Location: [facility] Administered by: Guero Dejesus DO on 03/09/24 10:41 Dose Route Admin Location Dispensed Lot Number Expiration Date NDC Man ufacturer 25 mg intra-articular left knee 2.5 mL [id number] 01/09/27 [address]-6 LEYIO Supplemental Info 01/13/2024 MRI report [facility] left knee: Post meniscectomy changes with persistent gap at the root grade 3 medial compartment chondromalacia degeneration of the lateral meniscus, parameniscal cyst, moderate to severe mucoid degeneration of the ACL, grade II-III chondromalacia of the patellofemoral joint. 01/02/2024 x-ray on disc [facility] left knee: moderate narrowing of the medial compartment on the notch view mild patellofemoral arthrosis Coding Level of Care Code Off vis,est,level 3 Diagnoses Primary osteoarthritis of left knee M17.12 Osteoarthritis type: primary Assessment and Plan Assessment and Plan (1) Left knee DJD: Status: Acute Qualifiers: Osteoarthritis type: primary Qualified Code(s): M17.12 - Unilateral primary osteoarthritis, left knee Orders: Orders Supartz Injection Today M17.12 - Unilateral primary osteoarthritis, left knee Plan Third Supartz injection given today she is tolerating well follow-up 03/09/24 1318 Date Guero Dejesus DO Cosigner Signature: Date (if applicable) CC: Normal [facility] Orthopedic Visit Reporton Orthopedic Visit Report [facility] [address] [place] [address] [address] [place] [address] OFFICE VISIT Date of Service: 03/02/24 MR#: [id number] Acct: [id number] Name: REGULO ENRIQUEZ Rep #: [id number] : 1975 Provider: Dr. Guero cardona DO Age/Sex: 48/F Location: [facility] Status: Signed Intake Vital Signs 02/05/24 09:40 02/21/24 10:20 Height 5 ft 6 in 5 ft 6 in Weight: 211 lb 6 oz BMI 34.1 Intake Visit Reasons: LEFT KNEE Chief Complaint: Left Knee 2nd Supartz Accompanied by: Self Allergies acetaminophen (From Percocet) Adverse Reaction (Verified 03/02/24 10:37) Rash meloxicam (From Mobic) Adverse Reaction (Verified 03/02/24 10:37) Anaphylaxis metronidazole (From Flagyl) Adverse Reaction (Verified 03/02/24 10:37) Rash oxycodone (From Percocet) Adverse Reaction (Verified 03/02/24 10:37) Rash Medications ???Medication ???Instructions ???Recorded ???Confirmed ???Type celecoxib 200 mg capsule (Celebrex) 200 mg PO DAILY #30 caps 02/05/24 03/02/24 Rx clobetasol 0.05 % scalp solution topical 02/05/24 03/02/24 History ketoconazole 2 % shampoo topical 02/05/24 03/02/24 History PFSH Medical History delivery delivered Endometriosis Surgical History History of hernia surgery H/O laparoscopy H/O: hysterectomy History of bowel diversion surgery H/O foot surgery H/O knee surgery Social History household members: spouse and children Smoking Status: Never smoker alcohol intake: current alcohol intake frequency: holidays/special occasions only HPI LEFT KNEE Details: This documentation accurately reflects the service provided and the decisions made by me, Dr. Guero Dejesus, 03/02/24 0823. Part of today???s visit was documented by Lorie AL, acting as scribe. REGULO ENRIQUEZ is a 48 year old F here today for 2nd left knee Supartz inejction. Ortho Exam General General: Yes no acute distress and Yes well groomed Neurologic: Yes alert and Yes oriented x3 Psychologic: Yes reasonable and appropriate Left Knee Skin/Wound: Yes CDI, No ecchymosis, No erythema and No swelling Knee ROM: Yes ROM-Extension -20 to 0 (3) and Yes ROM-Flexion 0-140 (118) Examination: Yes med jt line tenderness, No Lat jt line tenderness, No Crepitus, No Fabio's Test, No TTP Pes Anserine and No Illiotibial band tenderness Stability: NML: Anterior Drawer, NML: Posterior Drawer, NML: Valgus 0, NML: Valgus 30, NML: Varus 0 and NML: Varus 30 Patella Grind: No KNEE: pain mostly medial, lateral and posterior knee no joint effusion Office Procedures Ortho Injections Injections Yes Knee Left Is this Buy Bill?: Yes Details: Obtained consent for injection. Under sterile conditions, injected the patients left knee with 25mg/2.5mL of Supartz. The patient tolerated the injection well without any noted complication. Patient should call our office if redness develops, pain worsens or if they have any concerns. Office Meds Supartz FX 10 mg/mL intra-articular syringe Performing Provider: Guero Dejesus DO Performing Location: [facility] Administered by: Guero Dejesus DO on 03/02/24 10:48 Dose Route Admin Location Dispensed Lot Number Expiration Date NDC Man ufacturer 25 mg intra-articular left knee 2.5 mL [id number] 01/09/27 [address]-7 LEYIO Supplemental Info 01/13/2024 MRI report [facility] left knee: Post meniscectomy changes with persistent gap at the root grade 3 medial compartment chondromalacia degeneration of the lateral meniscus, parameniscal cyst, moderate to severe mucoid degeneration of the ACL, grade II-III chondromalacia of the patellofemoral joint. 01/02/2024 x-ray on disc [facility] left knee: moderate narrowing of the medial compartment on the notch view mild patellofemoral arthrosis Coding Level of Care Code Off vis,est,level 3 Diagnoses Primary osteoarthritis of left knee M17.12 Osteoarthritis type: primary CPT Codes [employer] principal.knee ([id number]) Assessment and Plan Assessment and Plan (1) Left knee DJD: Status: Acute Qualifiers: Osteoarthritis type: primary Qualified Code(s): M17.12 - Unilateral primary osteoarthritis, left knee Orders: Orders Supartz Injection Today M17.12 - Unilateral primary osteoarthritis, left knee Plan Second Supartz injection given today patient is feeling much better in regards to her knee pain follow-up in 1 week 03/02/24 1107 Date Guero Dejesus DO Cosigner Signature: Date (if applicabl (more content not included)... Normal [facility] Orthopedic Visit Reporton Orthopedic Visit Report [facility] [address] [place] [address] OFFICE VISIT Date of Service: 02/24/24 MR#: [id number] Acct: [id number] Name: REGULO ENRIQUEZ Rep #: [id number] : 1975 Provider: Dr. Guero cardona DO Age/Sex: 48/F Location: [facility] Status: Signed Intake Vital Signs 02/05/24 09:40 02/21/24 10:20 Height 5 ft 6 in 5 ft 6 in Weight: 211 lb 6 oz BMI 34.1 Intake Visit Reasons: LEFT KNEE Chief Complaint: Left Knee 1st Supartz Accompanied by: Self Is patient in pain?: Yes Pain scale (1-10): 4 Allergies acetaminophen (From Percocet) Adverse Reaction (Verified 02/24/24 16:12) Rash meloxicam (From Mobic) Adverse Reaction (Verified 02/24/24 16:12) Anaphylaxis metronidazole (From Flagyl) Adverse Reaction (Verified 02/24/24 16:12) Rash oxycodone (From Percocet) Adverse Reaction (Verified 02/24/24 16:12) Rash Medications ???Medication ???Instructions ???Recorded ???Confirmed ???Type celecoxib 200 mg capsule (Celebrex) 200 mg PO DAILY #30 caps 02/05/24 02/24/24 Rx clobetasol 0.05 % scalp solution topical 02/05/24 02/24/24 History ketoconazole 2 % shampoo topical 02/05/24 02/24/24 History PFSH Medical History delivery delivered Endometriosis Surgical History History of hernia surgery H/O laparoscopy H/O: hysterectomy History of bowel diversion surgery H/O foot surgery H/O knee surgery Social History household members: spouse and children Smoking Status: Never smoker alcohol intake: current alcohol intake frequency: holidays/special occasions only HPI LEFT KNEE Details: This documentation accurately reflects the service provided and the decisions made by me, Dr. Guero Dejesus, DO 02/24/24 09. Part of today???s visit was documented by [ ], acting as scribe. REGULO ENRIQUEZ is a 48 year old F here today for left knee 1st Supartz injection. Patient rates her knee pain a 4/10 today and states she has not done much today to increase the pain. Patient states the knee pain has pretty much stayed the same since her last visit. Patient states she did start taking the Celebrex that was prescribed to her at her last visit and she states some days she notices a difference and it takes the edge off and some days she does not notice any difference. Ortho Exam General General: Yes no acute distress and Yes well groomed Neurologic: Yes alert and Yes oriented x3 Psychologic: Yes reasonable and appropriate Right Knee Patella Translation: 1 Left Knee Skin/Wound: Yes CDI, No ecchymosis, No erythema and No swelling Knee ROM: Yes ROM-Extension -20 to 0 (3) and Yes ROM-Flexion 0-140 (118) Examination: Yes med jt line tenderness, No Lat jt line tenderness, No Crepitus, No Fabio's Test, No TTP Pes Anserine and No Illiotibial band tenderness Stability: NML: Anterior Drawer, NML: Posterior Drawer, NML: Valgus 0, NML: Valgus 30, NML: Varus 0 and NML: Varus 30 Patella Translation: 1 Patella Grind: No KNEE: pain mostly medial, lateral and posterior knee no joint effusion Office Procedures Ortho Injections Injections Yes Knee Left Is this Buy Bill?: No Details: Obtained consent for injection. Under sterile conditions, injected the patients left knee with 1.0mL Bupivacaine, 1.0mL Lidocaine and 1.0mL Depomedrol. The patient tolerated the injection well without any noted complication. Patient should call our office if redness develops, pain worsens or if they have any concerns. Ortho Injections Injections Yes Knee Left Is this Buy Bill?: Yes Details: Obtained consent for injection. Under sterile conditions, injected the patients left knee with 1st Supartz injection. The patient tolerated the injection well without any noted complication. Patient should call our office if redness develops, pain worsens or if they have any concerns. Office Meds Depo-Medrol 40 mg/mL suspension for injection Performing Provider: Guero Dejesus DO Performing Location: [facility] Administered by: Guero Dejesus DO on 02/24/24 16:18 Dose Route Admin Location Dispensed Lot Number Expiration Date [facility] ufacturer 40 mg intra-articular Left Knee 1 mL [id number] 05/12/25 0865-1569-59 [employer] Supartz FX 10 mg/mL intra-articular syringe Performing Provider: Guero Dejesus DO Performing Location: [facility] Administered by: Guero Dejesus DO on 02/24/24 16:18 Dose Route Admin Location Dispensed Lot Number Expiration Date [facility] Man ufacturer 25 mg intra-articular Left Knee 2.5 mL [id number] 01/09/27 [address]-0 LEYIO Supplemental Info 01/13/20 (more content not included)... Normal [facility] Orthopedic Visit Reporton Orthopedic Visit Report [facility] [address] [place] [address] [address] [place] [address] OFFICE VISIT Date of Service: 02/05/24 MR#: [id number] Acct: [id number] Name: REGULO ENRIQUEZ Rep #: [id number] : 1975 Provider: Dr. Guero cardona DO Age/Sex: 48/F Location: [facility] Status: Signed Intake Vital Signs 02/05/24 09:40 Height 5 ft 6 in Weight: 211 lb 6 oz BMI 34.1 Intake Visit Reasons: LEFT KNEE Accompanied by: Self Is patient in pain?: Yes Pain scale (1-10): 5 Allergies acetaminophen (From Percocet) Adverse Reaction (Verified 02/05/24 09:41) Rash meloxicam (From Mobic) Adverse Reaction (Verified 02/05/24 09:41) Anaphylaxis metronidazole (From Flagyl) Adverse Reaction (Verified 02/05/24 09:41) Rash oxycodone (From Percocet) Adverse Reaction (Verified 02/05/24 09:41) Rash Medications ???Medication ???Instructions ???Recorded ???Confirmed ???Type celecoxib 200 mg capsule (Celebrex) 200 mg PO DAILY #30 caps 02/05/24 02/05/24 Rx clobetasol 0.05 % scalp solution topical 02/05/24 02/05/24 History ketoconazole 2 % shampoo topical 02/05/24 02/05/24 History PFSH Medical History (Updated 02/05/24 @ 10:[address] Guero Dejesus DO) delivery delivered Endometriosis Surgical History (Updated 02/05/24 @ 09:45 by Geno Fonseca) History of hernia surgery H/O laparoscopy H/O: hysterectomy History of bowel diversion surgery H/O foot surgery H/O knee surgery Social History (Updated 02/05/24 @ 09:46 by Geno Fonseca) household members: spouse and children Smoking Status: Never smoker alcohol intake: current alcohol intake frequency: holidays/special occasions only HPI LEFT KNEE Details: This documentation accurately reflects the service provided and the decisions made by me, Dr. Guero Dejesus, DO 02/05/24 0801. Part of today???s visit was documented by Geno Cleary ATC, acting as scribe. REGULO ENRIQUEZ is a 48 year old F here today for left knee pain. Patient states the knee has been bothering her for many years. She has had 2 surgeries in the past in 1997 and 2020. She states most of the issues are coming from sports injuries when she was younger. The 2 surgeries she had were a tendon and ligament arthroscopic surgery in [address] Donahue went in and cleaned up the knee and meniscus and and then a cyst was removed. Patient states the last surgery she did rehab for quite a while but she states it did not get her as far as she wished it would've. Patient states Dr. Donahue tried a steroid injection in the fall of 2019 and she states it gave her relief for maybe 3 days. She states since this did not give her much relief that's why they went ahead and did the surgery. Patient denies any recent falls or accidents that have caused the pain. Patient states she will take Advil occasionally for the pain. Patient describes most of the pain over the lateral and medial joint lines as well as the posterior knee. She states she notices that she has compensation and has noticed an increase in right hip pain. Patient denies any numbness or tingling in her leg at all. Patient states the knee feels unsteady and weak and if she sits for a while the knee will stiffen up. Patient states after the first surgery she did pretty well and gave her relief for quite a while. Patient states that steps are an issue and [place] to do [place] hiking and she would like to get some relief. Patient states when she takes Advil she takes 3 pills about once a day. Ortho Exam General General: Yes no acute distress and Yes well groomed Neurologic: Yes alert and Yes oriented x3 Psychologic: Yes reasonable and appropriate Right Knee Patella Translation: 1 Left Knee Skin/Wound: Yes CDI, No ecchymosis, No erythema and No swelling Knee ROM: Yes ROM-Extension -20 to 0 (3) and Yes ROM-Flexion 0-140 (118) Examination: Yes med jt line tenderness, No Lat jt line tenderness, No Crepitus, No Fabio's Test, No TTP Pes Anserine and No Illiotibial band tenderness Stability: NML: Anterior Drawer, NML: Posterior Drawer, NML: Valgus 0, NML: Valgus 30, NML: Varus 0 and NML: Varus 30 Patella Translation: 1 Patella Grind: No KNEE: pain mostly medial, lateral and posterior knee no joint effusion Supplemental Info 01/13/2024 MRI report [facility] left knee: Post meniscectomy changes with persistent gap at the root grade 3 medial compartment chondromalacia degeneration of the lateral meniscus, parameniscal cyst, moderate to severe mucoid degeneration of the ACL, grade II-III chondromalacia of the patellofemoral joint. 01/02/2024 x-ray on disc [facility] left knee: moderate narrowing of the medial compartment on the notch view mild patellofemoral arthrosis Coding (more content not included)... Normal [facility] US BREAST LTD LEFTon 023 [facility] ANES POSTPROC EVALon 023 ANES POSTPROC EVAL HNO ID: [id number] Author: Kosta Heath APRN.TERMINAL OPERATIONS MANAGER Service: ? Author Type: Nurse Beauty Operator Apprentice Type: Anesthesia Postprocedure Evaluation Filed: 01/31/2023 8:59 AM Note Text: POST ANESTHESIA EVALUATION NOTE : 1975 Procedure Summary Date: 01/31/23 Room / Location: SURGERY Anesthesia Start: 800 Anesthesia Stop: Procedures: EGD DIAGNOSTIC COLONOSCOPY SCREENING Diagnosis: Special screening for malignant neoplasms, colon Gastroesophageal reflux disease with esophagitis without hemorrhage Hiatal hernia Dysphagia, unspecified type Special screening for malignant neoplasms, colon Gastroesophageal reflux disease with esophagitis without hemorrhage Hiatal hernia Dysphagia, unspecified type Scheduled Providers: Dinorah Fenton MD; Kosta Heath APRN.TERMINAL OPERATIONS MANAGER Responsible Provider: Kosta Heath APRN.TERMINAL OPERATIONS MANAGER Anesthesia Type: MAC ASA Status: 2 Anesthesia Type: MAC Last Vitals Vitals Value Taken Time BP 118/83 01/31/23 0858 Temp 97 01/31/23 0858 Pulse 79 01/31/23 0858 Resp 19 01/31/23 0858 SpO2 97 01/31/23 0858 Post Anesthesia Patient Status Anticipated Disposition: phase 2 then home. Neurological Status: sleepy but arousable. Pulmonary Status: breathing comfortably on room air Airway Control: returned to baseline unsupported. Cardiovascular Status: stable. Pain Management: clinically adequate Postoperative Hydration: acceptable. Intraoperative Events: no significant anesthesia events Post Operative Nausea/Vomiting Status: no significant post operative nausea or vomiting Recommendation: continue current plan of care. Anesthesia Observations No Documentation SIGNATURE: Kosta Heath APRN.TERMINAL OPERATIONS MANAGER PATIENT NAME: Regulo Enriquez DATE: January 31, 2023 TIME: 8:58 AM CSN: [id number] [facility] ANES PRE-OPon 01-31-2023 ANES PRE-OP HNO ID: [id number] Author: Kosta Heath APRN.TERMINAL OPERATIONS MANAGER Service: ? Author Type: Nurse Beauty Operator Apprentice Type: Anesthesia Preprocedure Evaluation Filed: 01/31/2023 7:57 AM Note Text: ANESTHESIOLOGY DAY OF SURGERY NOTE : 1975 Procedure Information Date/Time: 01/31/23 0800 Scheduled providers: Dinorah Fenton MD; Kosta Heath APRN.TERMINAL OPERATIONS MANAGER Procedures: EGD DIAGNOSTIC COLONOSCOPY SCREENING Location: LD SURGERY Estimated body mass index is 34.91 kg/m? as calculated from the following: Height as of this encounter: 166.4 cm (5' 5.5). Weight as of this encounter: 96.6 kg (213 lb). Most recent hematocrit and potassium results: Hematocrit 47.9 03/08/2022 Potassium 4.2 03/08/2022 Relevant Problems GI (+) Gastroesophageal reflux disease with esophagitis without hemorrhage (+) Hiatal hernia I - PHYSICAL EVALUATION AIRWAY Patient intubated: No. Tracheostomy tube not present Mallampati: I. TM distance: >3 FB. Neck ROM: full ROM without neurological symptoms. Mouth opening: adequate. Short neck: no. Thick neck: no DENTAL Dental findings: teeth intact. II - ANESTHESIA PLAN ASA Score: 2 Anesthetic Plan: MAC The patient is not a current smoker. NPO Status: adequate Beta Fahad Administration of chronic beta fahad medication not planned. Monitoring Plan Monitoring plan: standard ASA. Post Procedure Analgesic Plan Postoperative analgesic plan: parenteral or oral opioids. Informed Consent Anesthetic risks, benefits, alternatives, personnel and consent discussed: yes. Patient / Responsible Libertarian agrees to proceed: yes Patient / Surrogate agrees to blood products: Yes Vitals Value Taken Time BP 108/79 01/31/23 0743 Pulse 86 01/31/23 0743 Resp 20 01/31/23 0743 Temp 36 ?C (96.8 ?F) 01/31/23 0743 SpO2 96 % 01/31/2343 Facility-Administered Medications as of 01/31/2023 Medication Dose Route Frequency - lidocaine (PF) 10 mg/mL (1 %) 1-2 mg injection (XYLOCAINE) 0.1-0.2 mL INTRADERMAL PRN - lactated ringers iv infusion 75 mL/hr INTRAVENOUS CONTINUOUS - benzocaine 20 % mucosal spray (HURRICAINE ONE) MUCOUS MEMBRANE (TOPICAL MOUTH AND THROAT) ONCE Outpatient Medications as of 01/31/2023 Medication Sig - ketoconazole (NIZORAL) 2 % shampoo PLEASE SEE ATTACHED FOR DETAILED DIRECTIONS - Clobetasol Propionate (TEMOVATE) 0.05 % external solution APPLY TO THE SCALP NIGHTLY FOR UP TO 2 WEEKS WHEN FLARED, 2-3X WEEKLY FOR MAINTENANCE IF NEEDED - COMPOUNDED PRESCRIPTION Taking Plexis supplement for colon, multivitamin and probiotic daily I have interviewed and examined the patient. I have reviewed the medical record and/or the pre-anesthesia evaluation, pertinent labs, and test results. This contains updated information obtained within 48 hours of Surgery/Procedure. SIGNATURE: Kosta Heath APRN.TERMINAL OPERATIONS MANAGER PATIENT NAME: Regulo Enriquez DATE: January 31, 2023 TIME: 7:56 AM CSN: [id number] [facility] BRIEF OP NOTon 01-31-2023 BRIEF OP NOT HNO ID: [id number] Author: Dinorah Fenton MD Service: General Surgery Author Type: Physician Type: Brief Op Note Filed: 01/31/2023 8:55 AM Note Text: BRIEF OPERATIVE NOTE SURGERY DATE: 01/31/2023 Incision/Procedure Start Time: 8:05 cecum intubation time: 8:44 Incision Close/Procedure End Time: 8:49 Surgeon(s)/Proceduralist(s) and Flatbed Truck Driver(s): yobany Procedures: EGD with biopsies Screening colonoscopy Anesthesia: MAC Findings: small hiatal hernia, esophageal polyp - distal, irregular GE junction - mild, patchy erythema of antrum - mild Estimated Blood Loss: minimal Specimens: mucosal biopsies of antrum of stomach, GE junction, esophageal polyp , mid esophageal biopsies Complications: None, none Closure Technique: Non-primary Preop Diagnosis: dysphagia, screening for colon cancer Postop Diagnosis: dysphagia, small hiatal hernia, esophageal polyp - distal, irregular GE junction - mild, patchy erythema of antrum - mild SIGNATURE: Dinorah Fenton MD PATIENT NAME: Regulo Enriquez DATE: January 31, 2023 TIME: 8:52 AM Acct: [id number] Normal [facility] HISTORY PHYSICALon HISTORY PHYSICAL HNO ID: [id number] Author: Dinorah Fenton MD Service: General Surgery Author Type: Physician Type: HANDP Filed: 01/31/2023 7:48 AM Note Text: HISTORY AND PHYSICAL Regulo Enriquez 1975 REFERRING PHYSICIAN: Dorothea Baumann APRN.C* CHIEF COMPLAINT: Consult (Heartburn and colonoscopy consult. ) HPI: The patient is a 47 year old female referred for endoscopy. Regulo notes long-term issues with constipation. Reports she has had surgeries for hemorrhoids and anal fissures in the past including a sphincterotomy. Patient denies any change in bowel habits, weight changes, blood in stools, black tarry stools or abdominal pain. Denies family history of colon issues. The patient notes no upper GI complaints. Regulo states she did have a colonoscopy years ago for rectal bleeding and that she experienced significant discomfort and recall with that procedure. Patient notes nausea with sedation. Denies chest pain, shortness of breath or recent hospitalizations. PAST MEDICAL HISTORY Diagnosis Date Anal fissure RECTAL BLEEDING, PELVIC FLOOR DYSFUNCTION Calcaneal spur Endometriosis Hiatal hernia refers hx of flap not working properly. PMH - PAST MEDICAL HISTORY OF PELVIC FLOOR DYSFUNCTION Unspecified hemorrhoids without mention of complication PAST SURGICAL HISTORY Procedure Laterality Date DELIVERY ONLY , low cervical COLONOSCOPY 10/28/2002 FASCIECTOMY PLANTAR FASCIA PARTIAL SPX 06/12/2014 DR Best FISSURECTOMY INCL SPHINCTEROTOMY WHEN PERFORMED HEMORRHOIDECTOMY NTRNL AND XTRNL 1 COLUMN/GROUP INSERT INTRAUTERINE DEVICE 10/04/2006 Mirena KNEE SURGERY HX Left 08/2020 torn meniscus and some repair work. LAPS ABD PRTMANDOMENTUM DX W/WO SPEC BR/WA SPX Laparoscopy X2 EXPLORATORY LIG/TRNSXJ FLP TUBE ABDL/VAG APPR UNI/BI VAGINAL HYSTERECTOMY UTERUS 250 GM/< 08/14/2007 Hysterectomy, vaginal Current Outpatient Medications Medication Sig COMPOUNDED PRESCRIPTION Taking Plexis supplement for colon, multivitamin and probiotic daily No current facility-administered medications for this visit. ALLERGIES: Metronidazole, Mobic [Meloxicam], Percocet [Oxycodone-Acetaminophen], and Sodium PERSONAL HISTORY: Social History Tobacco Use Smoking status: Never Smokeless tobacco: Never Substance Use Topics Alcohol use: No Drug use: No FAMILY HISTORY: FAMILY HISTORY Problem Relation Age of Onset other (ULCERATIVE COLITIS [Other]) Maternal Aunt other (HYDROCEPHALY [Other]) Other Pat Cousin other (CVA [Other]) Paternal Grandfather other (Other [Other]) Other No breast/technical implementation lead/colon cancer REVIEW OF SYMPTOMS: The review of systems data was entered by the nurse and reviewed by pr Nursing Notes: Agnes Claire RN 01/09/2023 10:28 AM Signed REVIEW OF SYSTEMS: General: The patient denies fatigue, denies weight loss, NOTES weight gain, denies feeling hot, and denies feelings of cold. Eyes: The patient denies glaucoma, denies eye injury/surgery, wears glasses or contacts. Ear/Nose/Throat: The patient denies allergies, NOTES hayfever, denies ear infections, and NOTES bloody noses. Cardiovascular: The patient denies chest pain, denies heart disease, denies high blood pressure,denies cardiac stent, denies prior heart attack, denies irregular heart beat, denies high cholesterol, denies poor circulation, denies heart failure, other cardiac issues, denies claudication, denies cold feet, denies peripheral arterial stent. Respiratory: The patient denies tuberculosis, denies pneumonia, denies frequent cough, denies pulmonary embolism, denies shortness of breath, and denies coughing up blood. Gastrointestinal: The patient denies difficulty swallowing, NOTES acid reflux, denies ulcers, denies vomiting, denies jaundice/hepatitis, denies gallbladder problems, denies black or tarry stools, NOTES hemorrhoids, NOTES bleeding from rectum, denies diverticulitis, NOTES constipation, denies diarrhea, denies loss of stool control, and denies hernias. Kidney/Bladder: The patient denies kidney stones, denies urine infections, and denies bloody urine. Skin: The patient denies a history of skin cancer, denies bleeding/changing moles, and denies a history of skin rash. Neurologic: The patient denies a history of epilepsy/convulsions, NOTES headaches, denies head/spinal injuries, and denies stroke/TIA. Psychiatric: The patient denies psychiatric medications, denies depression, and denies voices, denies substance abuse. Endocrine: The patient denies thyroid disorders, denies diabetes, and denies hormonal problems. Hematologic: The patient NOTES a history of bruising, denies bleeding, and denies anemia, denies blood clots. Infections: The patient denies a history of measles and mumps, denies rheumatic fever, and denies sexually transmitted diseases. Musculoskeletal: The patient denies back pain/injury, denies back problems, NOTES (more content not included)... Normal [facility] OPERATIVE NOon 01-31-2023 OPERATIVE NO HNO ID: [id number] Author: Dinorah Fenton MD Service: General Surgery Author Type: Physician Type: Operative Report Filed: 02/01/2023 7:51 AM Note Text: [facility] - Operative Report - REGULO San : 1975 AGE: 47. SEX: F PATIENT TYPE: O HOSP [facility]: [facility] LOCATION: [facility] ATTENDING PHYSICIAN: Dinorah Fenton MD CSN NUMBER: [id number] DATE OF SURGERY/PROCEDURE: 01/31/2023 INCISION/PROCEDURE START TIME: 804 INCISION CLOSE/PROCEDURE END TIME: 848 PREOPERATIVE DIAGNOSIS: Dysphagia and screening for colon cancer via colonoscopy. POSTOPERATIVE DIAGNOSIS: dysphagia, hiatal hernia, esophageal polyp, hemorrhoids SURGEON: Dinorah Fenton MD REPAIR TECH: Kosta NICOLE. SURGERY/PROCEDURE: Esophagogastroduodenoscopy with biopsies and screening colonoscopy. ANESTHESIA: Monitored anesthesia care. INDICATIONS: Almita Enriquez is a 47-year-old white female, who presents with complaint of dysphagia, hiatal hernia, and acid reflux. She also presents for screening colonoscopy. She has been counseled the risks of procedure including, but not limited to infection, bleeding, perforation, GI tract, inability to complete the procedure, injury to any internal organs such as liver, spleen, etc. The patient understands and agrees to proceed. DESCRIPTION OF PROCEDURE: After informed consent was given, the patient was brought to the endoscopy suite. Appropriate time-out protocol was followed. Patient's posterior pharynx was then sprayed with local anesthetic. A bite block was placed. The patient was given IV anesthesia by the anesthesia service. The patient was placed in left lateral decubitus position. The upper endoscope was lubricated and carefully inserted in the patient's mouth and advanced into the esophagus. It was then advanced into the stomach, past the pylorus, then into the first and second portion of the duodenum. No lesions were noted in the first and second portion of the duodenum. The endoscope was retracted back into the stomach. In the antrum, there were a few patchy erythematous areas of the antrum of the stomach. Mucosal biopsies were taken of the antrum of the stomach. The remainder of the stomach appeared normal. Retroflexed view into the fundus and the body of the stomach revealed a very small hiatal hernia. The endoscope was retracted back into the esophagus. At the distal esophagus just near the GE junction, there appeared to be an esophageal polyp. It was completely removed using hot snare device. The GE junction appeared minimally irregular and therefore, mucosal biopsies were taken using cold grasper forceps. The remainder of the esophagus appeared normal. The endoscope was removed intact. The patient tolerated procedure well. The next procedure performed was colonoscopy. The colonoscope was lubricated and carefully inserted in the patient's anus and advanced into the rectum. It was then advanced into the sigmoid colon, then the left descending colon, past the splenic flexure into transverse colon, past the hepatic flexure down the right colon to the cecum. The cecum was identified by confluence of teniae coli, identification of ileocecal valve and appendiceal orifice, and external palpation. At this level, the colonoscope was slowly retracted back and entire colonic mucosal surface was examined. The colon cleansing preparation was adequate. There was no evidence of any masses, polyps, or lesions in the right colon. There was no evidence of any masses, polyps, or lesions in the transverse colon. There were no masses, polyps, or lesions in the left colon. There were no masses, polyps, lesions in the sigmoid colon. There were no masses or polyps in the rectum. A retroflexed view in the rectum revealed hemorrhoidal changes, but no active inflammation or bleeding. The endoscope was removed intact. Digital examination of the anal canal revealed no palpable masses. The patient tolerated the procedure well and was brought to recovery room in stable condition. ESTIMATED BLOOD LOSS: Minimal. SPECIMENS: Mucosal biopsy of antrum and stomach, mucosal biopsy of GE junction, mucosal biopsies of mid esophagus and esophageal polyp. COMPLICATIONS: None. RECOMMENDATIONS: screening colonoscopy in 10 years Dinorah Fenton MD LW:[id number] Normal [facility] SURGICAL PATHOLOGYon 023 CASE REPORT Normal [facility] Comment on above: Order Comment: Specimen Type: TISSUE SPE CIMEN Ordering Facility: [facility] Address: [address] [place] [address] Result Comment: Surg ical Pathology Report Case: [id number] Authorizing Provider: Dinorah Fenton MD Collected: 01/31/2023 08:08 AM Ordering Location: SURGERY Received: 02/01/2023 12:12 PM Pathologist: Raul Whyte MD Specimens: A) - ANTRUM (STOMACH) BIOPSY B) - ESOPHAGUS BIOPSY, esophageal polyp C) - ESOPHAGUS MID BIOPSY Performed By: #### S #### [facility] CLIA [id number] [address] [place] [address] CLINICAL HISTORY Dysphagia Normal [facility] Comment on above: Order Comment: Specimen Type: TISSUE SPE CIMEN Ordering Facility: [facility] Address: [address] [place] [id number] Result Comment: GERD Hiatal hernia Performed By: #### S #### [facility] CLIA [id number] [address] [place] [address] DIAGNOSIS COMMENT In part B the squamous mucosa focally appears hyperplastic and this could represent biopsy of a benign squamous papilloma. There is no evidence of atypia or malignancy. Normal [facility] Comment on above: Order Comment: Specimen Type: TISSUE SPE CIMEN Ordering Facility: [facility] Address: [address] [address] Performed By: #### S #### [facility] CLIA [id number] [address] FINAL DIAGNOSIS Normal [facility] Comment on above: Order Comment: Specimen Type: TISSUE SPE CIMEN Ordering Facility: [facility] Address: [address] [address] Result Comment: A. S tomach, antrum, biopsy: - No pathologic abnormalities. B. Esophageal polyp, biopsy: - Fragments of benign squamous and gastric type glandular mucosa with thermal artifact. See comment. C. Mid esophagus, biopsy: - Benign squamous mucosa showing no pathologic abnormalities. Performed By: #### S #### [facility] CLIA [id number] [address] [place] [address] FINAL PERFORMING LAB Normal [facility] Comment on above: Order Comment: Specimen Type: TISSUE SPE CIMEN Ordering Facility: [facility] Address: [address] [place] [address] Result Comment: Diag nostic interpretation performed at [facility], [address] [place] [address] CLIA# [id number] Turkey Roll Maker: Raul Whyte M.D. Performed By: #### S #### [facility] CLIA [id number] [address] [place] [address] GROSS DESCRIPTION Normal [facility] Comment on above: Order Comment: Specimen Type: TISSUE SPE CIMEN Ordering Facility: [facility] Address: [address] [place] [address] Result Comment: A. A NTRUM (STOMACH) BIOPSY Received in formalin labeled antrum (stomach) biopsy are two pieces of mcdaniels, soft tissue aggregating to 0.6 x 0.2 x 0.2 cm. Totally submitted in one cassette. B. ESOPHAGUS BIOPSY Received in formalin labeled esophageal polyp are multiple pieces of mcdaniels, soft tissue aggregating to 1.0 x 0.2 x 0.2 cm. Totally submitted in one cassette. C. ESOPHAGUS MID BIOPSY Received in formalin labeled esophagus mid biopsy is one piece of mcdaniels, soft tissue measuring 0.6 x 0.2 x 0.2 cm. Totally submitted in one cassette. Gross examination performed at [facility], [address] [place] [address] CLIA#[id number] [facility] February 01, 2023 1:12 PM Performed By: #### S #### [facility] CLIA [id number] [address] [id number] [facility] NURSING PROGon 01-24-2023 NURSING PROG HNO ID: [id number] Author: Kane Daly RN Service: ? Author Type: Registered Nurse Type: Nursing Progress Note Filed: 01/24/2023 11:21 AM Note Text: Pre-Procedure Checklist Regulo Enriquez [phone] (home) 1975 47 year old Body mass index is 34.91 kg/m?. 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 No Recent EKG/Cardiac Testing: no Chest pain in the last 6 months (<6 months cardiac clearance needed): No History of: Heart Attack/Stroke/Blood Clot?: no Shortness of Breath: No Asthma: No Inhalers: No Any Outstanding Consults?: No If yes, list: Additional Notes: Previous colonoscopy patient states she was nauseous and woke up during the procedure. 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 This test was developed and its performance characteristics determined by [facility]. This test has been authorized by FDA under an Emergency Use Authorization (EUA). This test has been validated in accordance with the FDA's Guidance Document Policy for Diagnostics Testing in Laboratories Certified to Perform High Complexity Testing under CLIA prior to Emergency use Authorization for Coronavirus Disease 2019 during the Public Health Emergency issued on October 10, 2019. Performed By: [facility] [address] [place] [address] Paint Sprayer Sandblaster: Fede Mcintosh III, M.D. CLIA#: [id number] Phone#: Performed By: #### C OVID #### [place] [address] COVID 19 Source PROFESSIONAL HOUSING CONSULTANT See Below [facility] ([place]) Comment on above: Result Comment: Nasopharyngeal Swab Performed By: [facility] [address] [place] [address] Paint Sprayer Sandblaster: Fede Mcintosh III, M.D. CLIA#: [id number] Phone#: Performed By: #### C OVID #### [place] [address] Date of Onset [id number] [facility] ([place]) Comment on above: Performed By: #### COVID #### [place] [address] Employed in Healthcare No [facility] ([place]) Comment on above: Performed By: #### COVID #### [place] [address] First Test Yes [facility] ([place]) Comment on above: Performed By: #### COVID #### [address] [address] Hospitalized No [facility] ([place]) Comment on above: Performed By: #### COVID #### [address] [address] ICU No [facility] ([place]) Comment on above: Performed By: #### COVID #### [place] [id number] Not [facility] ([place]) Comment on above: Performed By: #### COVID #### [place] [address] Resides in Congregate Care Setting No Normal [facility] ([place]) Comment on above: Performed By: #### COVID #### [place] [address] Symptomatic as Defined by CDC No Normal [facility] ([place]) Comment on above: Performed By: #### COVID #### [place] [address] .Auto Diffon 08-01-2020 Ammonia (P) [Mass/Vol] 0.60 10 3/mcL Normal 0.15-1.00 [facility] ([place]) Comment on above: Performed By: #### CBC, ADIFF, BMP, ANEU #### [place] [address] #### GFR #### [address] [address] Basophils (Bld) [#/Vol] 0.10 10 3/mcL Normal 0.00-0.19 [facility] ([place]) Comment on above: Performed By: #### CBC, ADIFF, BMP, ANEU #### [place] [address] #### GFR #### [address] [address] Basophils/100 WBC (Bld) 1.3 % Normal 0.0-2.5 [facility] ([place]) Comment on above: Performed By: #### CBC, ADIFF, BMP, ANEU #### [place] [address] #### GFR #### [address] [address] Eosinophils (Bld) [#/Vol] 0.20 10 3/mcL Normal 0.00-0.40 [facility] ([place]) Comment on above: Performed By: #### CBC, ADIFF, BMP, ANEU #### [place] [address] #### GFR #### [address] [address] Eosinophils/100 WBC (Bld) 2.1 % Normal 0.0-7.0 [facility] ([place]) Comment on above: Performed By: #### CBC, ADIFF, BMP, ANEU #### [address] [address] #### GFR #### [address] [address] Lymphocytes (Bld) [#/Vol] 2.10 10 3/mcL Normal 0.77-3.85 [facility] ([place]) Comment on above: Performed By: #### CBC, ADIFF, BMP, ANEU #### [address] [address] #### GFR #### [address] [address] Lymphocytes/100 WBC (Bld) 22.5 % Normal 10.0-50.0 [facility] ([place]) Comment on above: Performed By: #### CBC, ADIFF, BMP, ANEU #### [address] [address] #### GFR #### [address] [address] Monocytes/100 WBC (Bld) 7.0 % Normal 1.7-13.0 [facility] ([place]) Comment on above: Performed By: #### CBC, ADIFF, BMP, ANEU #### [place] [address] #### GFR #### [address] [address] Neutrophils/100 WBC (Bld) 67.1 % Normal 37.0-80.0 [facility] ([place]) Comment on above: Performed By: #### CBC, ADIFF, BMP, ANEU #### [address] [address] #### GFR #### [address] [address] .GFRon 08-01-2020 GFR 88 ml/min/1.73sqm Normal [facility] ([place]) Comment on above: Result Comment: GFR Population mean for , Non- Americans Ages 20-29 = 116 mL/min/1.73 sq.m. Ages 30-39 = 107 mL/min/1.73 sq.m. Ages 40-49 = 99 mL/min/1.73 sq.m. Ages 50-59 = 93 mL/min/1.73 sq.m. Ages 60-69 = 85 mL/min/1.73 sq.m. Ages 70+ = 75 mL/min/1.73 sq.m. Chronic Kidney Disease: Less than 60 mL/min/1.73 square meters End Stage Renal Disease: Less than 15 mL/min/1.73 square meters Performed By: #### C BC, RAJINDER, BMP, ANEU #### [address] [address] #### GFR #### [place] [address] GFR Non- 73 ml/min/1.73sqm Normal [facility] ([place]) Comment on above: Result Comment: GFR Population mean for , Non- Americans Ages 20-29 = 116 mL/min/1.73 sq.m. Ages 30-39 = 107 mL/min/1.73 sq.m. Ages 40-49 = 99 mL/min/1.73 sq.m. Ages 50-59 = 93 mL/min/1.73 sq.m. Ages 60-69 = 85 mL/min/1.73 sq.m. Ages 70+ = 75 mL/min/1.73 sq.m. Chronic Kidney Disease: Less than 60 mL/min/1.73 square meters End Stage Renal Disease: Less than 15 mL/min/1.73 square meters Performed By: #### C BC, ADIFF, BMP, ANEU #### [address] [address] #### GFR #### [place] [id number] .NEUABSon 08-01-2020 Neutrophils (Bld) [#/Vol] 6.20 10 3/mcL High 2.85-6.16 [facility] ([place]) Comment on above: Performed By: #### CBC, ADIFF, BMP, ANEU #### [address] [address] #### GFR #### [address] [address] BMPon 08-01-2020 Calcium [Mass/Vol] 10.5 mg/dL High 8.4-10.2 [facility] ([place]) Comment on above: Performed By: #### CBC, ADIFF, BMP, ANEU #### [address] [address] #### GFR #### [place] [address] Chloride [Moles/Vol] 104 mmol/L Normal 98-107 [facility] ([place]) Comment on above: Performed By: #### CBC, ADIFF, BMP, ANEU #### [place] [address] #### GFR #### [place] [address] CO2 [Moles/Vol] 31 mmol/L High 22-29 [facility] ([place]) Comment on above: Performed By: #### CBC, ADIFF, BMP, ANEU #### [address] [address] #### GFR #### [place] [address] Creatinine [Mass/Vol] 0.85 mg/dL Normal 0.55-1.02 [facility] ([place]) Comment on above: Performed By: #### CBC, ADIFF, BMP, ANEU #### [address] [address] #### GFR #### [address] [address] Electrolyte Balance 8.0 mEq/L Normal [facility] ([place]) Comment on above: Performed By: #### CBC, ADIFF, BMP, ANEU #### [place] [address] #### GFR #### [address] [address] Glucose [Mass/Vol] 100 mg/dL Normal 70-105 [facility] ([place]) Comment on above: Performed By: #### CBC, ADIFF, BMP, ANEU #### [address] [address] #### GFR #### [address] [address] Potassium [Moles/Vol] 4.1 mmol/L Normal 3.5-5.1 [facility] ([place]) Comment on above: Performed By: #### CBC, ADIFF, BMP, ANEU #### [address] [address] #### GFR #### [address] [address] Sodium [Moles/Vol] 143 mmol/L Normal 136-145 [facility] ([place]) Comment on above: Performed By: #### CBC, ADIFF, BMP, ANEU #### [address] [address] #### GFR #### [address] [address] Urea nitrogen [Mass/Vol] 10 mg/dL Normal 7-18 [facility] ([place]) Comment on above: Performed By: #### CBC, ADIFF, BMP, ANEU #### [address] [address] #### GFR #### [address] [address] Urea nitrogen/Creatin ine [Mass ratio] 12 ratio Normal 7-27 [facility] ([place]) Comment on above: Performed By: #### CBC, ADIFF, BMP, ANEU #### [address] [address] #### GFR #### [address] [address] CBCon 08-01-2020 Erythrocyte distribution width (RBC) [Ratio] 13.9 % Normal 11.5-14.5 [facility] ([place]) Comment on above: Performed By: #### CBC, ADIFF, BMP, ANEU #### [address] [address] #### GFR #### [address] [address] Hematocrit (Bld) [Volume fraction] 43.5 % Normal 37.0-47.0 [facility] ([place]) Comment on above: Performed By: #### CBC, ADIFF, BMP, ANEU #### [place] [address] #### GFR #### [place] [address] Hemoglobin (Bld) [Mass/Vol] 15.1 G/dL Normal 12.0-16.0 [facility] ([place]) Comment on above: Performed By: #### CBC, ADIFF, BMP, ANEU #### [place] [address] #### GFR #### [place] [address] MCH (RBC) [Entitic mass] 30.3 pg Normal 27.0-31.2 [facility] ([place]) Comment on above: Performed By: #### CBC, ADIFF, BMP, ANEU #### [place] [address] #### GFR #### [place] [address] MCHC (RBC) [Mass/Vol] 34.7 G/dL Normal 33.0-37.0 [facility] ([place]) Comment on above: Performed By: #### CBC, ADIFF, BMP, ANEU #### [place] [address] #### GFR #### [place] [id number] MCV (RBC) [Entitic vol] 87.5 fL Normal 80.0-94.0 [facility] ([place]) Comment on above: Performed By: #### CBC, ADIFF, BMP, ANEU #### [address] [address] #### GFR #### [address] [address] Platelet mean volume (Bld) [Entitic vol] 7.7 fL Normal 7.4-10.4 [facility] ([place]) Comment on above: Performed By: #### CBC, ADIFF, BMP, ANEU #### [place] [address] #### GFR #### [address] [address] Platelets (Bld) [#/Vol] 466 10 3/mcL High 130-400 [facility] ([place]) Comment on above: Performed By: #### CBC, ADIFF, BMP, ANEU #### [address] [address] #### GFR #### [address] [address] RBC (Bld) [#/Vol] 4.97 10 6/mcL Normal 4.20-5.40 [facility] ([place]) Comment on above: Performed By: #### CBC, ADIFF, BMP, ANEU #### [place] [address] #### GFR #### [address] [address] WBC (Bld) [#/Vol] 9.20 10 3/mcL Normal 4.60-10.80 [facility] ([place]) Comment on above: Performed By: #### CBC, ADIFF, BMP, ANEU #### [place] [id number] #### GFR #### [address] [address] Vital Signs Date Time Vital Sign Value Performing Clinician Avril vazquez 02-01-2025 13:51-0400 Body height 167.6 cm Dinorah Fenton MD Work Phone: [facility] 02-01-2025 13:51-0400 Body mass index (BMI) [Ratio] 35.67 kg/m2 Dinorah Fenton MD Work Phone: [facility] 02-01-2025 13:51-0400 Body temperature 99.19 [degF] Dinorah Fenton MD Work Phone: [facility] 02-01-2025 13:51-0400 Body weight 100.25 kg Dinorah Fenton MD Work Phone: [facility] 02-01-2025 13:51-0400 Diastolic blood pressure 86 mm[Hg] Dinorah Fenton MD Work Phone: [facility] 02-01-2025 13:51-0400 Heart rate 92 /min Dinorah Fenton MD Work Phone: [facility] 02-01-2025 13:51-0400 Respiratory rate 12 /min Dinorah Fenton MD Work Phone: [facility] 02-01-2025 13:51-0400 SaO2% (BldA) [Mass fraction] 99 % Dinorah Fenton MD Work Phone: [facility] 02-01-2025 13:51-0400 Systolic blood pressure 126 mm[Hg] Dinorah Fenton MD Work Phone: [facility] 04-10-2024 13:06-0400 Body height 166 cm Dorothea Haagen MANAGER ACQUISITION.HOOP RIVETING MACHINE OPERATOR HELPER Work Phone: [facility] 04-10-2024 13:06-0400 Body mass index (BMI) [Ratio] 34.9 kg/m2 Dorothea Haagen MANAGER ACQUISITION.HOOP RIVETING MACHINE OPERATOR HELPER Work Phone: [facility] 04-10-2024 13:06-0400 Body weight 96.16 kg Dorothea Haagen MANAGER ACQUISITION.HOOP RIVETING MACHINE OPERATOR HELPER Work Phone: [facility] 04-10-2024 13:06-0400 Diastolic blood pressure 86 mm[Hg] Dorothea Haagen MANAGER ACQUISITION.HOOP RIVETING MACHINE OPERATOR HELPER Work Phone: [facility] 04-10-2024 13:06-0400 Heart rate 85 /min Dorothea Haagen MANAGER ACQUISITION.HOOP RIVETING MACHINE OPERATOR HELPER Work Phone: [facility] 04-10-2024 13:06-0400 Respiratory rate 16 /min Dorothea Haagen MANAGER ACQUISITION.HOOP RIVETING MACHINE OPERATOR HELPER Work Phone: [facility] 04-10-2024 13:06-0400 SaO2% (BldA) [Mass fraction] 94 % Dorothea Baumann MANAGER ACQUISITION.HOOP RIVETING MACHINE OPERATOR HELPER Work Phone: [facility] 04-10-2024 13:06-0400 Systolic blood pressure 110 mm[Hg] Dorothea Baumann MANAGER ACQUISITION.HOOP RIVETING MACHINE OPERATOR HELPER Work Phone: [facility] 02-18-2023 10:44-0400 Body height 165.1 cm Dinorah Fenton MD Work Phone: [facility] 02-18-2023 10:44-0400 Body temperature 97.81 [degF] Dinorah Fenton MD Work Phone: [facility] 02-18-2023 10:44-0400 Body weight 97.52 kg Dinorah Fenton MD Work Phone: [facility] 02-18-2023 10:44-0400 Diastolic blood pressure 80 mm[Hg] Dinorah Fenton MD Work Phone: [facility] 02-18-2023 10:44-0400 Heart rate 85 /min Dinorah Fenton MD Work Phone: [facility] 02-18-2023 10:44-0400 SaO2% (BldA) [Mass fraction] 98 % Dinorah Fetnon MD Work Phone: [facility] 02-18-2023 10:44-0400 Systolic blood pressure 122 mm[Hg] Dinorah Fenton MD Work Phone: [facility] 01-24-2023 11:20-0400 Body height 166.4 cm Dez Freedman RN [facility] 01-24-2023 11:20-0400 Body weight 96.62 kg Dez Freedman RN [facility] 01-09-2023 09:42-0400 Body height 166.4 cm Ketty Peña PA-C Work Phone: [facility] 01-09-2023 09:42-0400 Body temperature 97.81 [degF] Ketty Peña PA-C Work Phone: [facility] 01-09-2023 09:42-0400 Body weight 96.62 kg Ketty Joshua PA-C Work Phone: [facility] 01-09-2023 09:42-0400 Diastolic blood pressure 66 mm[Hg] Ketty [place] PA-C Work Phone: [facility] 01-09-2023 09:42-0400 Heart rate 97 /min Ketty [place] PA-C Work Phone: [facility] 01-09-2023 09:42-0400 SaO2% (BldA) [Mass fraction] 97 % Ketty [place] PA-C Work Phone: [facility] 01-09-2023 09:42-0400 Systolic blood pressure 118 mm[Hg] Ketty [place] PA-C Work Phone: [facility] 03-07-2022 11:26-0400 Body height 165.1 cm Dorothea Haagen MANAGER ACQUISITION.HOOP RIVETING MACHINE OPERATOR HELPER Work Phone: [facility] 03-07-2022 11:26-0400 Body weight 96.62 kg Dorothea Haagen MANAGER ACQUISITION.HOOP RIVETING MACHINE OPERATOR HELPER Work Phone: [facility] 03-07-2022 11:26-0400 Diastolic blood pressure 70 mm[Hg] Dorothea Haagen MANAGER ACQUISITION.HOOP RIVETING MACHINE OPERATOR HELPER Work Phone: [facility] 03-07-2022 11:26-0400 Heart rate 88 /min Dorothea Haagen MANAGER ACQUISITION.HOOP RIVETING MACHINE OPERATOR HELPER Work Phone: [facility] 03-07-2022 11:26-0400 Respiratory rate 95 /min Dorothea Haagen MANAGER ACQUISITION.HOOP RIVETING MACHINE OPERATOR HELPER Work Phone: [facility] 03-07-2022 11:26-0400 Systolic blood pressure 124 mm[Hg] Dorothea Haagen MANAGER ACQUISITION.HOOP RIVETING MACHINE OPERATOR HELPER Work Phone: [facility] Encounters Encounter Date Encounter Type Care Provider Facility Start: 02-01-2025 End: 02-01-2025 Patient encounter procedure Dinorah Fenton MD Work Phone: General Surgery Comment on above: Esophageal polyp Start: 02-01-2025 End: 02-01-2025 ambulatory [facility] Facility:[facility] Start: 02-01-2025 ambulatory DOROTHEA [facility] Facility :[facility] Start: 02-01-2025 End: 02-01-2025 Subsequent hospital visit by physician Screen Mammo [facility] Mammogram Comment on above: Encounter for screen ing mammogram for breast cancer [Z12.31] Start: 04-28-2024 End: 04-28-2024 ambulatory [facility] Facility:[facility] Start: 04-22-2024 End: 04-22-2024 Telephone encounter Dorothea Baumann APRN.HOOP RIVETING MACHINE OPERATOR HELPER Work Phone: [facility] [place] Comment on above: Results Start: 04-20-2024 End: 04-20-2024 ambulatory [facility] Facility:[facility] Start: 04-20-2024 Encounter for genera l adult medical examination without abnormal findings DOROTHEA BAUMANN [facility] Start: 04-10-2024 End: 04-10-2024 Patient encounter procedure Dorothea Baumann MANAGER ACQUISITION.HOOP RIVETING MACHINE OPERATOR HELPER Work Phone: [facility] [place] Comment on above: Wellness examination (Primary Dx); Heartburn; OAB (overactive bladder) Start: 04-10-2024 End: 04-10-2024 Patient encounter status Dorothea Baumann APRN.HOOP RIVETING MACHINE OPERATOR HELPER Work Phone: [facility] Work Phone: Start: 04-10-2024 End: 04-10-2024 ambulatory [facility] Facility:[facility] Start: 03-09-2024 End: 03-09-2024 ambulatory [facility] Facility:[facility] Start: 03-02-2024 End: 03-02-2024 ambulatory [facility] Facility:[facility] Start: 02-24-2024 End: 02-24-2024 ambulatory [facility] Facility:[facility] Start: 02-19-2024 ambulatory Dorothea Baumann MANAGER ACQUISITION.HOOP RIVETING MACHINE OPERATOR HELPER Work Phone: Internal Medicine [facility] Start: 02-05-2024 End: 02-05-2024 ambulatory [facility] Facility:[facility] Start: 02-20-2023 End: 02-20-2023 Subsequent hospital visit by physician [facility] Mob 1 Work Phone: Radiology Comment on above: Inconclusive mammogr am [R92.2] Start: 02-18-2023 End: 02-18-2023 Patient encounter procedure Dinorah Fenton MD Work Phone: General Surgery Comment on above: Esophageal polyp (Pr imary Dx) Start: 01-31-2023 End: 01-31-2023 ambulatory DOROTHEA BAUMANN Facility:[facility] Start: 01-23-2023 ambulatory Dez cobos RN LD SURGERY Start: 01-11-2023 Telephone encounter Dorothea mtz APRN.HOOP RIVETING MACHINE OPERATOR HELPER Work Phone: [facility] [place] Comment on above: Results Start: 01-09-2023 Documentation procedure Mammog vargas Coordinator [facility] Start: 01-09-2023 Letter encounter Mammography Coordinator [facility] Department Start: 01-09-2023 End: 01-09-2023 Patient encounter procedure Ketty Peña PA-C Work Phone: General Surgery Comment on above: Heartburn; Screening for colon cancer Start: 01-08-2023 End: 01-08-2023 Subsequent hospital visit by physician [facility] Mamm[facility] Comment on above: Encounter for screen ing mammogram for breast cancer [Z12.31] Start: 06-30-2022 ambulatory Haroon Charles MANAGER ACQUISITION.HOOP RIVETING MACHINE OPERATOR HELPER Work Phone: Telemedicine Comment on above: Acute rhinosinusitis (Primary Dx) Start: 03-20-2022 ambulatory Dorothea Baumann APRN.HOOP RIVETING MACHINE OPERATOR HELPER Work Phone: [facility] [place] Comment on above: Proof of MMR Start: 03-13-2022 Telephone encounter Dorothea mtz APRN.HOOP RIVETING MACHINE OPERATOR HELPER Work Phone: [facility] [place] Comment on above: Results Start: 03-07-2022 End: 03-07-2022 Patient encounter procedure Dorothea Baumann APRN.HOOP RIVETING MACHINE OPERATOR HELPER Work Phone: [facility] [place] Comment on above: Wellness examination (Primary Dx); Special screening examination for viral disease; Screening for HIV (human immunodeficiency virus); Stress incontinence; Heartburn Start: 03-07-2022 End: 03-07-2022 Patient encounter status Dorothea Baumann APRN.CNP Work Phone: [facility] [place] Procedures Date Procedure Procedure Detail Performing Clinician Start: 04-20-2024 Lipid 1996 panel - S federico or Plasma Dorothea Baumann APRN.BARAK Work Phone: Start: 02-20-2023 Us breast uni real t andrea with image limited Dorothea Baumann APRN.CNP Work Phone: Start: 01-31-2023 Colonoscopy Dorothea mtz APRN.BARAK Work Phone: Start: 01-08-2023 End: 01-08-2023 Mammography Bulk Order Provider Start: 03-08-2022 Lipid 1996 panel - S federico or Plasma 1 Work Phone: Start: 03-07-2022 Adult depression scr eening assessment Dorothea Baumann APRN.BARAK Work Phone: Start: 03-13-2021 Mammography Dorothea mtz APRN.BARAK Work Phone: Start: 10-28-2002 Colonoscopy Haroon bone MANAGER ACQUISITION.BARAK Work Phone: Plan of Treatment Date Care Activity Detail Author Start: 01-31-2033 Screening for malign ant neoplasm of colon [facility] Start: 04-20-2029 Lipid panel Lipid Screening [facility] Start: 02-09-2029 Urine microalbumin profile [facility] Start: 04-20-2027 Diabetes Screening Diabetes Screenin g [facility] Start: 03-08-2027 Lipid 1996 panel - Serum or Plasma Lipid Screening [facility] Start: 03-08-2027 Lipid panel Lipid Screening [facility] Start: 03-08-2027 LIPID SCREEN LIPID SCREEN [facility] Start: 02-01-2026 Screening for malign ant neoplasm of breast Mammogram Screening [facility] Start: 04-12-2025 Influenza vaccination Influenz a Vaccine (Season Ended) [facility] Start: 04-10-2025 Anxiety Screening Anxiety Screening [facility] Comment on above: Postponed from 05/16 (Declined at this time) Start: 04-10-2025 Covid-19 Vaccine () Covid-19 Vaccine () [facility] Comment on above: Postponed from 04/12 (Declined at this time) Start: 03-29-2025 End: 03-29-2025 Patient encounter procedure 03/29/2025 11:20 AM EDT Office Visit [facility] [place] [address] [place], [place] [id number] Dorothea Baumann APRN.HOOP RIVETING MACHINE OPERATOR HELPER [address] [place], [place] [id number] physical [facility] [place] Comment on above: physical Start: 03-08-2025 DIABETES SCREEN DIABETES SCREEN [facility] Start: 03-08-2025 Diabetes Screening Diabetes Screenin g [facility] Start: 02-25-2025 End: 02-25-2025 Patient encounter procedure 02/25/2025 2:45 PM EDT Appointment Ambulatory Surgery [address] [place], [place] [id number] Keagan Rivas MD [address] [place] [address] Ambulatory Surgery Start: 07-22-2024 End: 10-21-2024 Lipid 1996 panel - Serum or Plasma LIPID PANEL BASIC Lab Routine Hyperlipidemia, mixed Expected: 07/22/2024, Expires: 10/21/2024 [facility] Work Phone: Comment on above: Expected: 07/22/2024 , Expires: 10/21/2024 Start: 04-22-2024 End: 07-22-2024 CBC W Auto Differential panel - Blood COMPLETE BLOOD COUNT AND DIFFERENTIAL Lab Routine Leukocytosis, unspecified type Expected: 04/22/2024, Expires: 07/22/2024 [facility] Comment on above: Expected: 04/22/2024 , Expires: 07/22/2024 Start: 04-12-2024 Covid-19 Vaccine (1 - 2023-24 season) Covid-19 Vaccine ( season) [facility] Start: 04-12-2024 Covid-19 Vaccine ( season) Covid-19 Vaccine () [facility] Start: 04-12-2024 Influenza vaccination Influenza Vacc ine (#1) [facility] Start: 04-10-2024 End: 07-10-2024 CBC W Auto Differential panel - Blood COMPLETE BLOOD COUNT AND DIFFERENTIAL Lab Routine Wellness examination Expected: 04/10/2024, Expires: 07/10/2024 [facility] Comment on above: Expected: 04/10/2024 , Expires: 07/10/2024 Start: 04-10-2024 End: 07-10-2024 Comprehensive metabolic 2000 panel - Serum or Plasma COMPREHENSIVE METABOLIC PANEL Lab Routine Wellness examination Expected: 04/10/2024, Expires: 07/10/2024 [facility] Comment on above: Expected: 04/10/2024 , Expires: 07/10/2024 Start: 04-10-2024 Depression Screening Depression [facility] Comment on above: Postponed from 05/16 (Declined at this time) Start: 04-10-2024 End: 07-10-2024 Lipid 1996 panel - Serum or Plasma LIPID PANEL BASIC Lab Routine Wellness examination Expected: 04/10/2024, Expires: 07/10/2024 [facility] Work Phone: Comment on above: Expected: 04/10/2024 , Expires: 07/10/2024 Start: 01-09-2024 Mammography [facility] Start: 01-09-2024 Screening for malign ant neoplasm of breast Mammogram Screening [facility] Start: 01-01-2024 COVID-19 VACCINE (#1) COVID-19 VACCI NE (#1) [facility] Comment on above: Postponed from 11/14 (Declined at this time) Start: 08-12-2023 Behavioral Health Screening Behavioral Health Screening [facility] Start: 04-12-2023 Covid-19 Vaccine ( season) Covid-19 Vaccine () [facility] Start: 04-12-2023 Influenza vaccination [facility] Start: 03-07-2023 Adult depression screening assessment DEPRESSION SCREENING [facility] Start: 08-12-2022 DEPRESSION ASSESSMENT DEPRESSION ASS ESSMENT [facility] Start: 2022 COLOGUARD (FIT-DNA) COLOGUARD (FIT-D NA) [facility] Start: 2022 Colonoscopy COLONOSCOPY [facility] Start: 2022 COLORECTAL CANCER SCREENING COLORECTAL CANCER SCREENING [facility] Start: [address] COLONOGRAPHY [facility] Start: 2022 FECAL OCCULT BLOOD FECAL OCCULT BLOO D [facility] Start: 2022 Screening for malign ant neoplasm of colon [facility] Start: 2022 SIGMOIDOSCOPY SIGMOIDOSCOPY [facility] Start: 04-12-2022 Influenza vaccination INFLUENZA (#1) [facility] Start: 03-13-2022 COVID-19 VACCINE (#1) COVID-19 VACCI NE (#1) [facility] Comment on above: Postponed from 11/14 (Declined at this time) Start: 03-13-2022 Mammography MAMMOGRAM [facility] Start: 03-07-2022 End: 05-07-2022 CBC W Auto Differential panel - Blood CBC + DIFF Lab Routine Wellness examination Expected: 03/07/2022, Expires: 05/07/2022 [facility] Work Phone: Comment on above: Expected: 03/07/2022 , Expires: 05/07/2022 Start: 03-07-2022 End: 05-07-2022 Comprehensive metabolic 2000 panel - Serum or Plasma COMP METABOLIC PANEL Lab Routine Wellness examination Expected: 03/07/2022, Expires: 05/07/2022 [facility] Work Phone: Comment on above: Expected: 03/07/2022 , Expires: 05/07/2022 Start: 03-07-2022 End: 05-07-2022 Hepatitis C virus Ab [Presence] in Serum HEP C AB IA W/CONF SCRN Lab Routine Special screening examination for viral disease Expected: 03/07/2022, Expires: 05/07/2022 [facility] Work Phone: Comment on above: Expected: 03/07/2022 , Expires: 05/07/2022 Start: 03-07-2022 End: 05-07-2022 HIV 1+2 Ab [Presence] in Serum or Plasma by Immunoassay HIV 1 2 COMBO(AG/AB),WITH REFLEX TO DIFFERENTIATION Lab Routine Screening for HIV (human immunodeficiency virus) Expected: 03/07/2022, Expires: 05/07/2022 [facility] Work Phone: Comment on above: Expected: 03/07/2022 , Expires: 05/07/2022 Start: 03-07-2022 End: 05-07-2022 Lipid 1996 panel - Serum or Plasma LIPID PANEL BASIC Lab Routine Wellness examination Expected: 03/07/2022, Expires: 05/07/2022 [facility] Work Phone: Comment on above: Expected: 03/07/2022 , Expires: 05/07/2022 Start: 03-07-2022 End: 05-07-2022 MUMPS IGG AB MUMPS IGG AB Lab Routine Wellness examination Expected: 03/07/2022, Expires: 05/07/2022 [facility] Work Phone: Comment on above: Expected: 03/07/2022 , Expires: 05/07/2022 Start: 03-07-2022 End: 05-07-2022 RUBELLA IGG AB RUBELLA IGG AB Lab Routine Wellness examination Expected: 03/07/2022, Expires: 05/07/2022 [facility] Work Phone: Comment on above: Expected: 03/07/2022 , Expires: 05/07/2022 Start: 03-07-2022 End: 05-07-2022 RUBEOLA (MEASLES)IGG RUBEOLA (MEASLES)IGG Lab Routine Wellness examination Expected: 03/07/2022, Expires: 05/07/2022 [facility] Work Phone: Comment on above: Expected: 03/07/2022 , Expires: 05/07/2022 Start: 08-12-2021 DEPRESSION ASSESSMENT DEPRESSION ASS ESSMENT [facility] Start: 1995 Depression Screening Depression Scre ening [facility] Start: 1995 HEPATITIS C SCREENING HEPATITIS C IN BA [facility] Start: 1995 HIV SCREENING HIV SCREENING [facility] Start: 1977 COVID-19 VACCINE (#1) COVID-19 VACCI NE (#1) [facility] End: 03-20-2025 DBT Breast - bilateral screening BONY SCREENING [facility] Radiology Routine Encounter for screening mammogram for breast cancer 1 Occurrences starting 02/19/2024 until 03/20/2025 [facility] Work Phone: Comment on above: 1 Occurrences starti ng 02/19/2024 until 03/20/2025 DBT Breast - bilater al screening BONY SCREENING W [facility] Radiology Routine Encounter for screening mammogram for breast cancer 02/01/2025 8:48 AM EDT [facility] Work Phone: End: 02-01-2026 EGD DIAGNOSTIC EGD DIAGNOSTIC Endoscopy Routine Esophageal polyp 1 Occurrences starting 02/01/2025 until 02/01/2026 [facility] Work Phone: Comment on above: 1 Occurrences starti ng 02/01/2025 until 02/01/2026 End: 02-10-2024 BONY DIAGNOSTIC LEFT BONY DIAGNOSTIC LEFT Radiology Routine Inconclusive mammogram 1 Occurrences starting 01/11/2023 until 02/10/2024 [facility] Work Phone: Comment on above: 1 Occurrences starti ng 01/11/2023 until 02/10/2024 End: 02-10-2024 US BREAST LTD LEFT US BREAST LTD LEFT Radiology Routine Inconclusive mammogram 1 Occurrences starting 01/11/2023 until 02/10/2024 [facility] Work Phone: Comment on above: 1 Occurrences starti ng 01/11/2023 until 02/10/2024 [facility] Immunizations Immunization Date Immunization Notes Care Provider Gautam alegria 02-09-2019 tetanus toxoid, redu reynaldo diphtheria toxoid, and acellular pertussis vaccine, adsorbed Dorothea Haagen MANAGER ACQUISITION.HOOP RIVETING MACHINE OPERATOR HELPER Work Phone: [facility] 04-22-2017 influenza virus vacc ine, unspecified formulation Us 1 Work Phone: [facility] 11-13-2013 hepatitis B vaccine, adult dosage Dorothea Haagen MANAGER ACQUISITION.HOOP RIVETING MACHINE OPERATOR HELPER Work Phone: [facility] 07-24-2013 hepatitis B vaccine, adult dosage Dorothea Haagen MANAGER ACQUISITION.HOOP RIVETING MACHINE OPERATOR HELPER Work Phone: [facility] 05-08-2013 hepatitis B vaccine, adult dosage Dorothea Haagen MANAGER ACQUISITION.HOOP RIVETING MACHINE OPERATOR HELPER Work Phone: [facility] 11-30-2008 tetanus toxoid, redu reynaldo diphtheria toxoid, and acellular pertussis vaccine, adsorbed Dorothea Haagen MANAGER ACQUISITION.HOOP RIVETING MACHINE OPERATOR HELPER Work Phone: [facility] 03-06-1980 measles, mumps and rubella virus vaccine Dorothea Haagen MANAGER ACQUISITION.HOOP RIVETING MACHINE OPERATOR HELPER Work Phone: [facility] Payers Date Payer Category Payer Self-pay 2021 Private Health Insurance [employer] [id number] 2021 Unknown [employer] PPO [id number] 2021-Present [phone] [address] [place] [address] PPO [id number] 2021 Unknown [id number] 2021 Unknown [id number] Unknown [id number] Unknown [id number] Unknown [id number] Unknown [id number] Social History Date Type Detail Facility Start: 02-20-2013 Tobacco smoking status NHIS Never sm oked tobacco [facility] Start: 03-07-2022 End: 04-10-2024 Alcohol intake Current non-drinker of alcohol (finding) [facility] Start: 03-04-2022 End: 12-31-2022 History SDOH Alcohol Frequency 2 [facility] Start: 03-04-2022 End: 12-31-2022 History SDOH Alcohol Std Drinks 1 [facility] Start: 03-04-2022 End: 12-31-2022 History SDOH Social Connections Phone 5 [facility] Start: 03-04-2022 End: 12-31-2022 History SDOH Social Connections Taoist 3 [facility] Start: 03-04-2022 History SDOH Physica l Activity DPW 4 [facility] Start: 1975 Sex Assigned At Female [facility] Start: 02-25-2022 End: 03-07-2022 Exposure to SARS-CoV-2 (event) Not sure [facility] Start: 02-20-2013 Tobacco use and exposure Smoke less tobacco non-user [facility] Start: 12-30-2022 End: 04-07-2024 History of Social function [facility] Start: 12-30-2022 End: 04-07-2024 Social connection and isolation panel [facility] Do you belong to any clubs or organizations such as orthodox groups, unions, fraternal or athletic groups, or school groups? Yes [facility] Are you now , , , , never or living with a partner? [facility] How often to you hav e a drink containing alcohol? Monthly or less [facility] How many standard dr inks containing alcohol do you have on a typical day? 1 or 2 [facility] How often do you hav e 6 or more drinks on 1 occasion? Never [facility] How hard is it for y ou to pay for the very basics like food, housing, medical care, and heating Not hard at all [facility] Do you feel stress - tense, restless, nervous, or anxious, or unable to sleep at night because your mind is troubled all the time - these days [OSQ] Not at all [facility] (I/We) worried cassandra er (my/our) food would run out before (I/we) got money to buy more. Never true [facility] In the past 12 month s, was there a time when you were not able to pay the mortgage or rent on time? No [facility] Start: 08-14-2019 Gender identity Identifies as female gender (finding) [facility] Start: 02-01-2025 Alcoholic beverage intake Curr ent drinker of alcohol (finding) [facility] Start: 02-01-2025 Alcohol Comment Socially [facility] Functional Status Date Assessment Result Facility 07-30-2014 Are you deaf, or do you have serious difficulty hearing No 07/30/2014 3:58 PM Gretchen Lemons RN No [facility] 07-30-2014 Are you blind, or do you have serious difficulty seeing, even when wearing glasses No 07/30/2014 3:58 PM Gretchen Lemons RN No [facility] 07-30-2014 Do you have serious difficulty walking or climbing stairs No 07/30/2014 3:58 PM Gretchen Lemons RN No [facility] 07-30-2014 Do you have difficul ty dressing or bathing No 07/30/2014 3:58 PM Gretchen Lemons RN No [facility] 07-30-2014 Because of a physica l, mental, or emotional condition, do you have difficulty doing errands alone such as visiting a physician's office or shopping No 07/30/2014 3:58 PM Gretchen Lemons RN No [facility] Mental Status Date Assessment Result Facility 07-30-2014 Because of a physica l, mental, or emotional condition, do you have serious difficulty concentrating, remembering, or making decisions No 07/30/2014 3:58 PM Gretchen Lemons RN No [facility] Clinical Notes 03-07-2022 to 02-01-2025 Dinorah Fenton MD - 02/01/2025 2:03 PM Eli Davalos LPN - 02/01/2025 1:58 PM EDTTelephone Encounter - Zaki GaitanARLETH - 04/22/2024 3:48 PM EDTPatient InstructionsPatient Instructions Note Date & Type Note Facility 02-01-2025 Note HNO ID: [id number] Author: DINORAH FENTON MD Service: ? 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 She requires a follow up surveillance EGD. She denies dysphagia. She denies heartburn. She denies emesis. PAST MEDICAL HISTORY Diagnosis Date Anal fissure RECTAL BLEEDING, PELVIC FLOOR DYSFUNCTION Calcaneal spur Endometriosis Esophageal polyp GERD (gastroesophageal reflux disease) Hiatal hernia refers hx of flap not working properly. PMH - PAST MEDICAL HISTORY OF PELVIC FLOOR DYSFUNCTION Sciatica Seasonal allergies Unspecified hemorrhoids without mention of complication PAST SURGICAL HISTORY Procedure Laterality Date DELIVERY ONLY , low cervical COLONOSCOPY 10/28/2002 COLONOSCOPY 01/31/2023 EGD 01/31/2023 FASCIECTOMY PLANTAR FASCIA PARTIAL SPX 06/12/2014 DR Best FISSURECTOMY INCL SPHINCTEROTOMY WHEN PERFORMED HEMORRHOIDECTOMY NTRNL AND XTRNL 1 COLUMN/GROUP INSERT INTRAUTERINE DEVICE 10/04/2006 [facility] KNEE ARTHROSCOP MENISCUS REPAIR MED/LAT Right 11/10/2024 Dr. Keagan White, [facility] KNEE SURGERY HX Left 08/2020 torn meniscus and some repair work. LAPS ABD PRTMANDOMENTUM DX W/WO SPEC BR/WA SPX Laparoscopy X2 EXPLORATORY LIG/TRNSXJ FLP TUBE ABDL/VAG APPR UNI/BI VAGINAL HYSTERECTOMY UTERUS 250 GM/< 08/14/2007 Hysterectomy, vaginal Current Outpatient Medications Medication Sig ibuprofen (MOTRIN) 800 mg tablet Take 800 mg by mouth every 8 hours as needed for pain. omeprazole (PRILOSEC) 20 mg capsule Take 1 capsule by mouth daily before breakfast. 1/2 hr before meal. Clobetasol Propionate (TEMOVATE) 0.05 % external solution APPLY TO THE SCALP NIGHTLY FOR UP TO 2 WEEKS WHEN FLARED, 2-3X WEEKLY FOR MAINTENANCE IF NEEDED COMPOUNDED PRESCRIPTION Taking Plexis supplement for colon, multivitamin and probiotic daily ketoconazole (NIZORAL) 2 % shampoo PLEASE SEE ATTACHED FOR DETAILED DIRECTIONS ALLERGIES: Metronidazole, Mobic [Meloxicam], Percocet [Oxycodone-Acetaminophen], and Sodium PERSONAL HISTORY: Social History Tobacco Use Smoking status: Never Smokeless tobacco: Never Vaping Use Vaping status: Never Used Substance Use Topics Alcohol use: Yes Comment: Socially Drug use: Never FAMILY HISTORY Problem Relation Age of Onset No Known Problems Mother No Known Problems Father No Known Problems Sister other (CHF) Maternal Grandmother No Known Problems Maternal Grandfather No Known Problems Paternal Grandmother other (CVA [Other]) Paternal Grandfather Alzheimer's Disease Paternal Grandfather other (ULCERATIVE COLITIS [Other]) Maternal Aunt other (HYDROCEPHALY [Other]) Other Pat Cousin other (Other [Other]) Other No breast/technical implementation lead/colon cancer REVIEW OF SYSTEMS: General: The patient denies fatigue, denies weight loss, denies weight gain, denies feeling hot, and denies feelings of cold. Eyes: The patient denies glaucoma, denies eye injury/surgery, wears glasses or contacts. Ear/Nose/Throat: The patient denies allergies, denies hayfever, denies ear infections, and denies bloody noses. Cardiovascular: The patient denies chest pain, denies heart disease, denies high blood pressure,denies cardiac stent, denies prior heart attack, denies irregular heart beat, denies high cholesterol, denies poor circulation, denies heart failure, other cardiac issues, denies claudication, denies cold feet, denies peripheral arterial stent. Respiratory: The patient denies tuberculosis, denies pneumonia, denies frequent cough, denies pulmonary embolism, denies shortness of breath, and denies coughing up blood. Gastrointestinal: The patient denies difficulty swallowing, notes acid reflux, denies ulcers, denies vomiting, denies jaundice/hepatitis, denies gallbladder problems, denies black or tarry stools, denies hemorrhoids, denies bleeding from rectum, denies diverticulitis, notes constipation, denies diarrhea, denies loss of stool control, and denies hernias. Kidney/Bladder: The patient denies kidney stones, denies urine infections, and denies bloody urine. Skin: The patient denies a history of skin cancer, denies bleeding/changing moles, and denies a history of skin rash. Neurologic: The patient denies a history of epilepsy/convulsions, denies headaches, denies head/spinal injuries, and denies stroke/TIA. Psychiatric: The patient denies psychiatric medications, denies depression, and denies voices, denies substance abuse. Endocrine: The patient denies thyroid disorders, denies diabetes, and denies hormonal problems. Hematologic: The patient denies a history of bruising, denies bleeding, and denies anemia, denies b (more content not included)... [facility] 02-01-2025 History of Presen t illness Narrative HISTORY AND PHYSICAL Regulo Lane Zoe 1975 REFERRING PHYSICIAN: Dorothea Baumann APRN.C* CHIEF COMPLAINT: Consult HPI: The patient is a 49 year old female with findings of benign squamous papilloma polyp of esophagus by EGD in 2022. She requires a follow up surveillance EGD. She denies dysphagia. She denies heartburn. She denies emesis. PAST MEDICAL HISTORY Diagnosis Date Anal fissure RECTAL BLEEDING, PELVIC FLOOR DYSFUNCTION Calcaneal spur Endometriosis Esophageal polyp GERD (gastroesophageal reflux disease) Hiatal hernia refers hx of flap not working properly. PMH - PAST MEDICAL HISTORY OF PELVIC FLOOR DYSFUNCTION Sciatica Seasonal allergies Unspecified hemorrhoids without mention of complication PAST SURGICAL HISTORY Procedure Laterality Date DELIVERY ONLY , low cervical COLONOSCOPY 10/28/2002 COLONOSCOPY 01/31/2023 EGD 01/31/2023 FASCIECTOMY PLANTAR FASCIA PARTIAL SPX 06/12/2014 DR Best FISSURECTOMY INCL SPHINCTEROTOMY WHEN PERFORMED HEMORRHOIDECTOMY NTRNL & XTRNL 1 COLUMN/GROUP INSERT INTRAUTERINE DEVICE 10/04/2006 [facility] KNEE ARTHROSCOP MENISCUS REPAIR MED/LAT [facility]/2020 torn meniscus and some repair work. LAPS ABD PRTM&OMENTUM DX W/WO SPEC BR/WA SPX Laparoscopy X2 EXPLORATORY LIG/TRNSXJ FLP TUBE ABDL/VAG APPR UNI/BI VAGINAL HYSTERECTOMY UTERUS 250 GM/< 08/14/2007 Hysterectomy, vaginal Current Outpatient Medications Medication Sig ibuprofen (MOTRIN) 800 mg tablet Take 800 mg by mouth every 8 hours as needed for pain. omeprazole (PRILOSEC) 20 mg capsule Take 1 capsule by mouth daily before breakfast. 1/2 hr before meal. Clobetasol Propionate (TEMOVATE) 0.05 % external solution APPLY TO THE SCALP NIGHTLY FOR UP TO 2 WEEKS WHEN FLARED, 2-3X WEEKLY FOR MAINTENANCE IF NEEDED COMPOUNDED PRESCRIPTION Taking Plexis supplement for colon, multivitamin and probiotic daily ketoconazole (NIZORAL) 2 % shampoo PLEASE SEE ATTACHED FOR DETAILED DIRECTIONS ALLERGIES: Metronidazole, Mobic [Meloxicam], Percocet [Oxycodone-Acetaminophen], and Sodium PERSONAL HISTORY: Social History Tobacco Use Smoking status: Never Smokeless tobacco: Never Vaping Use Vaping status: Never Used Substance Use Topics Alcohol use: Yes Comment: Socially Drug use: Never FAMILY HISTORY Problem Relation Age of Onset No Known Problems Mother No Known Problems Father No Known Problems Sister other (CHF) Maternal Grandmother No Known Problems Maternal Grandfather No Known Problems Paternal Grandmother other (CVA [Other]) Paternal Grandfather Alzheimer's Disease Paternal Grandfather other (ULCERATIVE COLITIS [Other]) Maternal Aunt other (HYDROCEPHALY [Other]) Other Pat Cousin other (Other [Other]) Other No breast/technical implementation lead/colon cancer REVIEW OF SYSTEMS: General: The patient denies fatigue, denies weight loss, denies weight gain, denies feeling hot, and denies feelings of cold. Eyes: The patient denies glaucoma, denies eye injury/surgery, wears glasses or contacts. Ear/Nose/Throat: The patient denies allergies, denies hayfever, denies ear infections, and denies bloody noses. Cardiovascular: The patient denies chest pain, denies heart disease, denies high blood pressure,denies cardiac stent, denies prior heart attack, denies irregular heart beat, denies high cholesterol, denies poor circulation, denies heart failure, other cardiac issues, denies claudication, denies cold feet, denies peripheral arterial stent. Respiratory: The patient denies tuberculosis, denies pneumonia, denies frequent cough, denies pulmonary embolism, denies shortness of breath, and denies coughing up blood. Gastrointestinal: The patient denies difficulty swallowing, notes acid reflux, denies ulcers, denies vomiting, denies jaundice/hepatitis, denies gallbladder problems, denies black or tarry stools, denies hemorrhoids, denies bleeding from rectum, denies diverticulitis, notes constipation, denies diarrhea, denies loss of stool control, and denies hernias. Kidney/Bladder: The patient denies kidney stones, denies urine infections, and denies bloody urine. Skin: The patient denies a history of skin cancer, denies bleeding/changing moles, and denies a history of skin rash. Neurologic: The patient denies a history of epilepsy/convulsions, denies headaches, denies head/spinal injuries, and denies stroke/TIA. Psychiatric: The patient denies psychiatric medications, denies depression, and denies voices, denies substance abuse. Endocrine: The patient denies thyroid disorders, denies diabetes, and denies hormonal problems. Hematologic: The patient denies a history of bruising, denies bleeding, and denies anemia, denies blood clots. Infections: The patient denies a history of measles and mumps, denies rheumatic fever, and denies sexually transmitted diseases. Musculoskeletal: The patient denies back pain/injury, denies back problems, denies sciatica, notes knee/foot trouble, denies arthritis, or denies gout PHYSICAL EXAMINATION: General: The patient is 49 year old female, well nourished, well hydrated in no acute distress. The patient is oriented to time, place, and person. VITALS: Blood pressure 126/86, pulse 92, temperature 37.3 C (99.2 F), temperature source Temporal, resp. rate 12, height 167.6 cm (5' 6), weight 100.2 kg (221 lb), last menstrual period 10/03/2006, SpO2 99%. Body mass index is 35.67 kg/m . Head: Normal cephalic, atraumatic Eyes: pupils are equally round, sclera are clear/anicteric, wearing glasses Neck is supple with no tracheal deviation Cardiac: normal heart sounds, regular Respiratory: Normal respiratory excursion and pattern. Abdominal exam: benign Extremities: no clubbing, cyanosis or edema. Neuro: non focal Psych: normal mood The sensitive examination was discussed with the Patient or Patient's Authorized Tank Stave Assembler. As applicable, any other physician, advance practice provider, medical student, or other health professional student that will be observing or involved in the sensitive examination for educational or training purposes was discussed with the Patient or Authorized Tank Stave Assembler. The Patient or Authorized Tank Stave Assembler has agreed to proceed with the sensitive examination. (Sensitive examination includes inspection and/or palpation of the breasts, pelvis, prostate and anorectal regions) Assessment IMPRESSION: history of esophageal polyp PLAN: I have discussed the above with the patient. I have offered EGD, possible biopsies I have explained the procedure to the patient. I have counseled the patient as to the risks of the procedure, including but not limited to: infection, bleeding, injury to any intrabdominal organs such as liver/spleen, perforation of the GI tract, inability to complete the procedure, complications of anesthesia, etc. - the patient understands. I have explained to the patient the difference between IV conscious sedation and MAC anesthesia - and I have offered either, according to the patient's wishes. I have explained that with IV conscious sedation there is no anesthesia provider available and therefore there is a limitation of the amount of IV medications that can be given and that the patient may wake up in the middle of the procedure and/or experience pain/discomfort during the procedure. Further discussion was done and the patient was given the opportunity to ask questions and all questions were answered. The patient chooses IV conscious sedation. The patient wishes to proceed. I have answered all questions to the patient s satisfaction and the patient has no further questions. My clinic staff has educated the patient as to the colon cleansing regimen and I have prescribed Golytely for the colon cleansing solution. The patient will be scheduled for the procedure at [facility]. Diagnoses: (K22.81) Esophageal polyp I have confirmed and edited as necessary, the PFSH and ROS obtained by others. Consultation requested by Dorothea Baumann for an opinion regarding patient's history of esophageal polyp. My final recommendations will be communicated back to the requesting physician by way of shared Medical record or letter to requesting physician via US mail. Medical Decision Making: Risk: Low: Low risk from testing/treatment Medical Decision Making Level: 2 - Straightforward Dinorah Fenton MD REVIEW OF SYSTEMS: General: The patient denies fatigue, denies weight loss, denies weight gain, denies feeling hot, and denies feelings of cold. Eyes: The patient denies glaucoma, denies eye injury/surgery, wears glasses or contacts. Ear/Nose/Throat: The patient denies allergies, denies hayfever, denies ear infections, and denies bloody noses. Cardiovascular: The patient denies chest pain, denies heart disease, denies high blood pressure,denies cardiac stent, denies prior heart attack, denies irregular heart beat, denies high cholesterol, denies poor circulation, denies heart failure, other cardiac issues, denies claudication, denies cold feet, denies peripheral arterial stent. Respiratory: The patient denies tuberculosis, denies pneumonia, denies frequent cough, denies pulmonary embolism, denies shortness of breath, and denies coughing up blood. Gastrointestinal: The patient denies difficulty swallowing, notes acid reflux, denies ulcers, denies vomiting, denies jaundice/hepatitis, denies gallbladder problems, denies black or tarry stools, denies hemorrhoids, denies bleeding from rectum, denies diverticulitis, notes constipation, denies diarrhea, denies loss of stool control, and denies hernias. Kidney/Bladder: The patient denies kidney stones, denies urine infections, and denies bloody urine. Skin: The patient denies a history of skin cancer, denies bleeding/changing moles, and denies a history of skin rash. Neurologic: The patient denies a history of epilepsy/convulsions, denies headaches, denies head/spinal injuries, and denies stroke/TIA. Psychiatric: The patient denies psychiatric medications, denies depression, and denies voices, denies substance abuse. Endocrine: The patient denies thyroid disorders, denies diabetes, and denies hormonal problems. Hematologic: The patient denies a history of bruising, denies bleeding, and denies anemia, denies blood clots. Infections: The patient denies a history of measles and mumps, denies rheumatic fever, and denies sexually transmitted diseases. Musculoskeletal: The patient denies back pain/injury, denies back problems, denies sciatica, notes knee/foot trouble, denies arthritis, or denies gout. When was patient's last Mammogram screening? 02/01/2025 Last Colonoscopy: 02/2023 Eli Valenzuela LPN documented in this encounter [facility] 02-01-2025 Note HNO ID: [id number] Author: ELI VALENZUELA LPN Service: ? Author Type: LICENSED NURSE Type: Progress Notes Filed: 02/02/2025 15:59 Note Text: REVIEW OF SYSTEMS: General: The patient denies fatigue, denies weight loss, denies weight gain, denies feeling hot, and denies feelings of cold. Eyes: The patient denies glaucoma, denies eye injury/surgery, wears glasses or contacts. Ear/Nose/Throat: The patient denies allergies, denies hayfever, denies ear infections, and denies bloody noses. Cardiovascular: The patient denies chest pain, denies heart disease, denies high blood pressure,denies cardiac stent, denies prior heart attack, denies irregular heart beat, denies high cholesterol, denies poor circulation, denies heart failure, other cardiac issues, denies claudication, denies cold feet, denies peripheral arterial stent. Respiratory: The patient denies tuberculosis, denies pneumonia, denies frequent cough, denies pulmonary embolism, denies shortness of breath, and denies coughing up blood. Gastrointestinal: The patient denies difficulty swallowing, notes acid reflux, denies ulcers, denies vomiting, denies jaundice/hepatitis, denies gallbladder problems, denies black or tarry stools, denies hemorrhoids, denies bleeding from rectum, denies diverticulitis, notes constipation, denies diarrhea, denies loss of stool control, and denies hernias. Kidney/Bladder: The patient denies kidney stones, denies urine infections, and denies bloody urine. Skin: The patient denies a history of skin cancer, denies bleeding/changing moles, and denies a history of skin rash. Neurologic: The patient denies a history of epilepsy/convulsions, denies headaches, denies head/spinal injuries, and denies stroke/TIA. Psychiatric: The patient denies psychiatric medications, denies depression, and denies voices, denies substance abuse. Endocrine: The patient denies thyroid disorders, denies diabetes, and denies hormonal problems. Hematologic: The patient denies a history of bruising, denies bleeding, and denies anemia, denies blood clots. Infections: The patient denies a history of measles and mumps, denies rheumatic fever, and denies sexually transmitted diseases. Musculoskeletal: The patient denies back pain/injury, denies back problems, denies sciatica, notes knee/foot trouble, denies arthritis, or denies gout. When was patient's last Mammogram screening? 02/01/2025 Last Colonoscopy: 02/2023 Eli Valenzuela LPN [facility] 04-22-2024 Telephone encounter Note TC to pt, notified of response/provider response. Pt denies any infections or colds. She will return in the next few weeks to repeat labs. Zaki Gaitan LPN [facility] 04-22-2024 Miscellaneous Notes TC to pt, notified of response/provider response. Pt denies any infections or colds. She will return in the next few weeks to repeat labs. Zaki Gaitan LPN Can please let patient know that I received her lab results. Her cholesterol level is elevated. Please really work on healthy diet/exercise. Can we send her information on a low cholesterol diet, please. Her white blood count was just a little elevated. Any recent infections or colds? Lets have her repeat this in a couple of weeks to ensure that it has returned to normal. Everything else looked okay. Dorothea Baumann APRN.HOOP RIVETING MACHINE OPERATOR HELPER The 10-year ASCVD risk score (Mesa DK, et al., 2019) is: 1% Values used to calculate the score: Age: 48 years Sex: Female Is Non- : No Diabetic: No Tobacco smoker: No Systolic Blood Pressure: 110 mmHg Is BP treated: No HDL Cholesterol: 58 mg/dL Total Cholesterol: 274 mg/dL documented in this encounter [facility] 04-22-2024 Telephone encounter Note Can please let patient know that I received her lab results. Her cholesterol level is elevated. Please really work on healthy diet/exercise. Can we send her information on a low cholesterol diet, please. Her white blood count was just a little elevated. Any recent infections or colds? Lets have her repeat this in a couple of weeks to ensure that it has returned to normal. Everything else looked okay. Dorothea Baumann APRN.CNP The 10-year ASCVD risk score (Reji MUNGUIA, et al., 2019) is: 1% Values used to calculate the score: Age: 48 years Sex: Female Is Non- : No Diabetic: No Tobacco smoker: No Systolic Blood Pressure: 110 mmHg Is BP treated: No HDL Cholesterol: 58 mg/dL Total Cholesterol: 274 mg/dL [facility] 04-10-2024 Instructions Dorothea Baumann APRN.CNP - 04/10/2024 1:27 PM EDT Return for fasting labs. Let me know if you would like to try vesicare. Start the omeprazole -- take daily for a couple of months, then wean off of it (every other day X 1-2 weks, then ever 3rd day for 1-2 weeks) and see what happens. Schedule mammogram. Health Promotion: - Eat healthy -- go to FNZ.gov to get started - Have a yearly physical - Mammogram yearly after age 40 - Get at least 30 minutes of physical activity daily - Get at least 7 to 8 hours of sleep each night - Reach and maintain a healthy weight - Get help to quit or don't start smoking - Limit alcohol use to one drink or less - Do not use illegal drugs or misuse prescription drugs - Wear a helmet when riding a bike and wear protective gear for sports - Wear a seatbelt in cars and not text and drive - Wear sunscreen documented in this encounter [facility] 04-10-2024 Note HNO ID: [id number] Author: DOROTHEA BAUMANN APRN.HOOP RIVETING MACHINE OPERATOR HELPER Service: ? Author Type: Nurse Practitioner Type: Progress Notes Filed: 04/10/2024 14:18 Note Text: This is a 48 year old female who presents today with: Patient presents with: Yearly Exam HISTORY OF PRESENT ILLNESS: Regulo Enriquez is a 48 year old female. Patient presents with: Yearly Exam Pt presents today for physical. No problems/concerns. Seeing ortho for knees -- just had series of gel injections. REVIEW OF SYSTEMS GENERAL: No weight loss, malaise or fevers/chills HEENT: Negative for frequent or significant headaches, No changes in hearing or vision. Occ headache resolved with OTC medication. NECK: Negative for lumps, goiter, pain and significant neck swelling RESPIRATORY: Negative for cough, hemoptysis, wheezing, dyspnea or shortness of breath CARDIOVASCULAR: Negative for chest pain, leg swelling, orthopnea, or palpitations GI: No nausea, vomiting, or diarrhea/constipation. No hematochezia/melena. + heartburn -- had EGD last year -- notices most when she lays down at night. : No history of dysuria, frequency or incontinence. Gets some urgency. Gets some mixed leakage. MUSCULOSKELETAL: + left knee pain -- see above. SKIN: Negative for lesions, rash, and itching. + scalp psoriasis. ENDOCRINE: Negative for cold or heat intolerance, polyuria, polydipsia and goiter NEURO: No history of syncope, paralysis, seizures or tremors PAST MEDICAL HISTORY: PAST MEDICAL HISTORY No date: Anal fissure Comment: RECTAL BLEEDING, PELVIC FLOOR DYSFUNCTION No date: Calcaneal spur No date: Endometriosis No date: GERD (gastroesophageal reflux disease) No date: Hiatal hernia Comment: refers hx of flap not working properly. No date: PMH - PAST MEDICAL HISTORY OF Comment: PELVIC FLOOR DYSFUNCTION No date: Sciatica No date: Seasonal allergies No date: Unspecified hemorrhoids without mention of complication PAST SURGICAL HISTORY No date: DELIVERY ONLY Comment: , low cervical 10/28/2002: COLONOSCOPY 01/31/2023: COLONOSCOPY 01/31/2023: EGD 06/12/2014: FASCIECTOMY PLANTAR FASCIA PARTIAL SPX Comment: DR Best No date: FISSURECTOMY INCL SPHINCTEROTOMY WHEN PERFORMED No date: HEMORRHOIDECTOMY NTRNL AND XTRNL 1 COLUMN/GROUP 10/04/2006: INSERT INTRAUTERINE DEVICE Comment: Mirena 08/2020: KNEE SURGERY HX; Left Comment: torn meniscus and some repair work. No date: LAPS ABD PRTMANDOMENTUM DX W/WO SPEC BR/WA SPX Comment: Laparoscopy X2 EXPLORATORY No date: LIG/TRNSXJ FLP TUBE ABDL/VAG APPR UNI/BI 08/14/2007: VAGINAL HYSTERECTOMY UTERUS 250 GM/< Comment: Hysterectomy, vaginal ALLERGIES Metronidazole, Mobic [Meloxicam], Percocet [Oxycodone-Acetaminophen], and Sodium MEDICATIONS Current Outpatient Medications Medication Sig ketoconazole (NIZORAL) 2 % shampoo PLEASE SEE ATTACHED FOR DETAILED DIRECTIONS Clobetasol Propionate (TEMOVATE) 0.05 % external solution APPLY TO THE SCALP NIGHTLY FOR UP TO 2 WEEKS WHEN FLARED, 2-3X WEEKLY FOR MAINTENANCE IF NEEDED COMPOUNDED PRESCRIPTION Taking Plexis supplement for colon, multivitamin and probiotic daily No current facility-administered medications for this visit. Facility-Administered Medications Ordered in Other Visits Medication Dose Route Frequency propofol injection (DIPRIVAN) INTRAVENOUS PRN lidocaine 100 mg/5 mL (2 %) IV syringe INTRAVENOUS PRN ondansetron (PF) injection (ZOFRAN) INTRAVENOUS PRN FAMILY HISTORY Problem Relation Age of Onset other (ULCERATIVE COLITIS [Other]) Maternal Aunt other (HYDROCEPHALY [Other]) Other Pat Cousin other (CVA [Other]) Paternal Grandfather other (Other [Other]) Other No breast/technical implementation lead/colon cancer Social History Tobacco Use Smoking status: Never Smokeless tobacco: Never Substance Use Topics Alcohol use: No Drug use: No EXAM: BP 110/86 Pulse 85 Resp 16 Ht 166 cm (5' 5.35) Wt 96.2 kg (212 lb) LMP 10/03/2006 SpO2 94% BMI 34.90 kg/m? PHYSICAL EXAM: General Appearance: Well appearing, alert, in no acute distress, well-hydrated, well nourished.. Skin: Skin color, texture, turgor normal, no suspicious rashes or lesions. Head: Normocephalic, no masses, lesions, tenderness or abnormalities. Eyes: Anicteric sclera. Pupils are equally round and reactive to light. Extraocular movements are intact. . Ears: External ears normal, canals clear. Normal TMs bilaterally. Oropharynx: Lips, mucosa, and tongue normal, teeth and gums normal, oropharynx normal. Neck: Supple, no adenopathy; thyroid symmetric, normal size, no bruits. Lungs: Lungs clear to auscultation. No wheezing, rhonchi, rales.. Heart: RRR without murmur, gallop, or rubs. No ectopy. Abdomen: Abdomen soft, non-tender. Bowel sounds normal. No masses, organomegaly. Extremities: No deformities, edema, skin discoloration, clubbing or cyanosis. Good capillary refill. . Neurologic: Gait normal. ASSESSMENT/P (more content not included)... [facility] 04-10-2024 History of Presen t illness Narrative This is a 48 year old female who presents today with: Patient presents with: Yearly Exam HISTORY OF PRESENT ILLNESS: Regulo Enriquez is a 48 year old female. Patient presents with: Yearly Exam Pt presents today for physical. No problems/concerns. Seeing ortho for knees -- just had series of gel injections. REVIEW OF SYSTEMS GENERAL: No weight loss, malaise or fevers/chills HEENT: Negative for frequent or significant headaches, No changes in hearing or vision. Occ headache resolved with OTC medication. NECK: Negative for lumps, goiter, pain and significant neck swelling RESPIRATORY: Negative for cough, hemoptysis, wheezing, dyspnea or shortness of breath CARDIOVASCULAR: Negative for chest pain, leg swelling, orthopnea, or palpitations GI: No nausea, vomiting, or diarrhea/constipation. No hematochezia/melena. + heartburn -- had EGD last year -- notices most when she lays down at night. : No history of dysuria, frequency or incontinence. Gets some urgency. Gets some mixed leakage. MUSCULOSKELETAL: + left knee pain -- see above. SKIN: Negative for lesions, rash, and itching. + scalp psoriasis. ENDOCRINE: Negative for cold or heat intolerance, polyuria, polydipsia and goiter NEURO: No history of syncope, paralysis, seizures or tremors PAST MEDICAL HISTORY: PAST MEDICAL HISTORY No date: Anal fissure Comment: RECTAL BLEEDING, PELVIC FLOOR DYSFUNCTION No date: Calcaneal spur No date: Endometriosis No date: GERD (gastroesophageal reflux disease) No date: Hiatal hernia Comment: refers hx of flap not working properly. No date: PMH - PAST MEDICAL HISTORY OF Comment: PELVIC FLOOR DYSFUNCTION No date: Sciatica No date: Seasonal allergies No date: Unspecified hemorrhoids without mention of complication PAST SURGICAL HISTORY No date: DELIVERY ONLY Comment: , low cervical 10/28/2002: COLONOSCOPY 01/31/2023: COLONOSCOPY 01/31/2023: EGD 06/12/2014: FASCIECTOMY PLANTAR FASCIA PARTIAL SPX Comment: DR Best No date: FISSURECTOMY INCL SPHINCTEROTOMY WHEN PERFORMED No date: HEMORRHOIDECTOMY NTRNL & XTRNL 1 COLUMN/GROUP 10/04/2006: INSERT INTRAUTERINE DEVICE Comment: Mirena 08/2020: KNEE SURGERY HX; Left Comment: torn meniscus and some repair work. No date: LAPS ABD PRTM&OMENTUM DX W/WO SPEC BR/WA SPX Comment: Laparoscopy X2 EXPLORATORY No date: LIG/TRNSXJ FLP TUBE ABDL/VAG APPR UNI/BI 08/14/2007: VAGINAL HYSTERECTOMY UTERUS 250 GM/< Comment: Hysterectomy, vaginal ALLERGIES Metronidazole, Mobic [Meloxicam], Percocet [Oxycodone-Acetaminophen], and Sodium MEDICATIONS Current Outpatient Medications Medication Sig ketoconazole (NIZORAL) 2 % shampoo PLEASE SEE ATTACHED FOR DETAILED DIRECTIONS Clobetasol Propionate (TEMOVATE) 0.05 % external solution APPLY TO THE SCALP NIGHTLY FOR UP TO 2 WEEKS WHEN FLARED, 2-3X WEEKLY FOR MAINTENANCE IF NEEDED COMPOUNDED PRESCRIPTION Taking Plexis supplement for colon, multivitamin and probiotic daily No current facility-administered medications for this visit. Facility-Administered Medications Ordered in Other Visits Medication Dose Route Frequency propofol injection (DIPRIVAN) INTRAVENOUS PRN lidocaine 100 mg/5 mL (2 %) IV syringe INTRAVENOUS PRN ondansetron (PF) injection (ZOFRAN) INTRAVENOUS PRN FAMILY HISTORY Problem Relation Age of Onset other (ULCERATIVE COLITIS [Other]) Maternal Aunt other (HYDROCEPHALY [Other]) Other Pat Cousin other (CVA [Other]) Paternal Grandfather other (Other [Other]) Other No breast/technical implementation lead/colon cancer Social History Tobacco Use Smoking status: Never Smokeless tobacco: Never Substance Use Topics Alcohol use: No Drug use: No EXAM: BP 110/86 Pulse 85 Resp 16 Ht 166 cm (5' 5.35) Wt 96.2 kg (212 lb) LMP 10/03/2006 SpO2 94% BMI 34.90 kg/m PHYSICAL EXAM: General Appearance: Well appearing, alert, in no acute distress, well-hydrated, well nourished.. Skin: Skin color, texture, turgor normal, no suspicious rashes or lesions. Head: Normocephalic, no masses, lesions, tenderness or abnormalities. Eyes: Anicteric sclera. Pupils are equally round and reactive to light. Extraocular movements are intact. . Ears: External ears normal, canals clear. Normal TMs bilaterally. Oropharynx: Lips, mucosa, and tongue normal, teeth and gums normal, oropharynx normal. Neck: Supple, no adenopathy; thyroid symmetric, normal size, no bruits. Lungs: Lungs clear to auscultation. No wheezing, rhonchi, rales.. Heart: RRR without murmur, gallop, or rubs. No ectopy. Abdomen: Abdomen soft, non-tender. Bowel sounds normal. No masses, organomegaly. Extremities: No deformities, edema, skin discoloration, clubbing or cyanosis. Good capillary refill. . Neurologic: Gait normal. ASSESSMENT/PLAN: 1. Wellness examination - ICD9: V70.0, ICD10: Z00.00 (primary diagnosis) Form complete. - LIPID PANEL BASIC - COMPLETE BLOOD COUNT AND DIFFERENTIAL - COMPREHENSIVE METABOLIC PANEL Health Promotion: - Eat healthy -- go to FNZ.gov to get started - Have a yearly physical - Mammogram yearly after age 40 - Get at least 30 minutes of physical activity daily - Get at least 7 to 8 hours of sleep each night - Reach and maintain a healthy weight - Get help to quit or don't start smoking - Limit alcohol use to one drink or less - Do not use illegal drugs or misuse prescription drugs - Wear a helmet when riding a bike and wear protective gear for sports - Wear a seatbelt in cars and not text and drive - Wear sunscreen 2. Heartburn - ICD9: 787.1, ICD10: R12 Discussed options. Since using tums daily, will start omeprazole for a couple of months and then wean off. - OMEPRAZOLE 20 MG CAPSULE,DELAYED RELEASE She will be due for repeat EGD next year. 3. OAB (overactive bladder) - ICD9: 596.51, ICD10: N32.81 Discussed lifestyle techniques. Discussed avoiding bladder irritants and kegals. Considering possibly vesicare - will let us know. Discussed treatment plan and patient voices understanding. Patient's questions answered appropriately. Medications and potential side effects were discussed and patient voices understanding. Return to the office as scheduled or as needed for worsening/no improvement. Dorothea Baumann APRN.HOOP RIVETING MACHINE OPERATOR HELPER documented in this encounter [facility] 02-19-2024 Note Patient Outreach (IN TMM[facility]) REGULO ENRIQUEZ ([id number]) 1975 F Date Time Provider Department 02/19/24 DOROTHEA BAUMANN During your visit today, we recorded the following information about you: Allergies As of Date: 02/19/2024 Noted Allergy Reaction METRONIDAZOLE 07/29/2002 Comments: had flagyl in IV as noted above MOBIC (MELOXICAM) 03/10/2013 7 - Swelling 10 - Anaphylaxis PERCOCET (OXYCODONE-ACETAMINOPHEN) 008 2 - Rash SODIUM 07/01/2002 2 - Rash Comments: Itching and Rash - patient notes it was sodium as part of a topical medication. Date Reviewed: 02/18/2023 Reviewed by: Blanca Leblanc LPN - Fully Assessed Visit Diagnosis:Encounter for screening mammogram for breast cancer [Z12.31] Order(s):BONY SCREENING W KYARA [[id number]] Order #: [id number] FUTURE Prescriptions as of 02/24/2024 - ketoconazole (NIZORAL) 2 % shampoo PLEASE SEE ATTACHED FOR DETAILED DIRECTIONS - Clobetasol Propionate (TEMOVATE) 0.05 % external solution APPLY TO THE SCALP NIGHTLY FOR UP TO 2 WEEKS WHEN FLARED, 2-3X WEEKLY FOR MAINTENANCE IF NEEDED - COMPOUNDED PRESCRIPTION Taking Plexis supplement for colon, multivitamin and probiotic daily Facility-Administered Medications as of 02/24/2024 - propofol injection (DIPRIVAN) - lidocaine 100 mg/5 mL (2 %) IV syringe - ondansetron (PF) injection (ZOFRAN) Meds Comments as of 01/06/2016: Dr. Hunt's Essentials Colon Start Plus, 2 capsules daily. Problem List As Of Date 02/19/2024 Noted Resolved Calcaneal spur [M77.30] 02/07/2012 Plantar fascial fibromatosis [M72.2] 05/12/2013 Dysphagia [R13.10] 01/31/2023 Gastroesophageal reflux disease with esophagiti*01/31/2023 Hiatal hernia [K44.9] 01/31/2023 Special screening for malignant neoplasms, colo*01/31/2023 Encounter Status:Closed by NAV OLIVASUSER on 02/24/24 [facility] 02-20-2023 History of Presen t illness Narrative Radiology Service Progress Note PATIENT NAME: Regulo Enriquez DATE OF SERVICE: February 20, 2023 TIME: 4:32 PM PATIENT IDENTITY VERIFICATION COMPLETED USING TWO (2) IDENTIFIERS: Name and Date of confirmed by patient verbally. FALL SCREENING: Has the patient had 2 falls in the last year or 1 fall with injury or currently using an Ambulatory Assistive Device (Walker, Cane, Wheelchair, Crutches, etc.)? No PATIENT GENDER DATA: Female. status: : No status: NO. PATIENT RELEVANT IMPLANT DATA REVIEWED: Not Applicable RADIOLOGY DEPARTMENT: Ultrasound PERIPHERAL IV DATA: Not applicable SIGNED BY: Samra Wood RDMS RVGeovani February 20, 2023 4:32 PM documented in this encounter [facility] 02-18-2023 History of Presen t illness Narrative Regulo Domingo Enriquez 1975 REFERRING PHYSICIAN: Dinorah Fenton MD CHIEF COMPLAINT: Follow Up (Colonoscopy and EGD) HPI: The patient is a 47 year old female presents for follow up after EGD/colonoscopy. This was done on 01/31/2023 No findings on colonoscopy, screening for colon cancer Findings of distal esophageal polyp, possible squamous papilloma by pathology. Patient notes intermittent symptoms of heartburn, controlled with taking TUMS. PAST MEDICAL HISTORY Diagnosis Date Anal fissure RECTAL BLEEDING, PELVIC FLOOR DYSFUNCTION Calcaneal spur Endometriosis GERD (gastroesophageal reflux disease) Hiatal hernia refers hx of flap not working properly. PMH - PAST MEDICAL HISTORY OF PELVIC FLOOR DYSFUNCTION Sciatica Seasonal allergies Unspecified hemorrhoids without mention of complication PAST SURGICAL HISTORY Procedure Laterality Date DELIVERY ONLY , low cervical COLONOSCOPY 10/28/2002 COLONOSCOPY 01/31/2023 EGD 01/31/2023 FASCIECTOMY PLANTAR FASCIA PARTIAL SPX 06/12/2014 DR Best FISSURECTOMY INCL SPHINCTEROTOMY WHEN PERFORMED HEMORRHOIDECTOMY NTRNL & XTRNL 1 COLUMN/GROUP INSERT INTRAUTERINE DEVICE 10/04/2006 Mirena KNEE SURGERY HX Left 08/2020 torn meniscus and some repair work. LAPS ABD PRTM&OMENTUM DX W/WO SPEC BR/WA SPX Laparoscopy X2 EXPLORATORY LIG/TRNSXJ FLP TUBE ABDL/VAG APPR UNI/BI VAGINAL HYSTERECTOMY UTERUS 250 GM/< 08/14/2007 Hysterectomy, vaginal Current Outpatient Medications Medication Sig ketoconazole (NIZORAL) 2 % shampoo PLEASE SEE ATTACHED FOR DETAILED DIRECTIONS Clobetasol Propionate (TEMOVATE) 0.05 % external solution APPLY TO THE SCALP NIGHTLY FOR UP TO 2 WEEKS WHEN FLARED, 2-3X WEEKLY FOR MAINTENANCE IF NEEDED COMPOUNDED PRESCRIPTION Taking Plexis supplement for colon, multivitamin and probiotic daily ALLERGIES: Metronidazole, Mobic [Meloxicam], Percocet [Oxycodone-Acetaminophen], and Sodium REVIEW OF SYSTEMS: Denies fevers Denies weight loss PHYSICAL EXAMINATION: General: The patient is 47 year old female, well nourished, well hydrated in no acute distress. The patient is oriented to time, place, and person. VITALS: Blood pressure 122/80, pulse 85, temperature 36.6 C (97.8 F), height 165.1 cm (5' 5), weight 97.5 kg (215 lb), last menstrual period 10/03/2006, SpO2 98 %. Body mass index is 35.78 kg/m . Head: Normal cephalic, atraumatic Eyes: pupils are equally round, sclera are clear/anicteric Neck is supple with no tracheal deviation Respiratory: Normal respiratory excursion and pattern. Abdominal exam: benign Extremities: no clubbing, cyanosis or edema. 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 I have recommended follow up EGD in 2 years given above findings (sooner if patient has worsening signs/symptoms. I have also explained hemorrhoidal disease and anal fissures as patient questions whether this was found on colonoscopy. I have also educated patient on prevention/control of above with increased fiber in diet, adequate free water in diet, avoiding straining with bowel movements and prolonged sitting on toilet. I have also explained hiatal hernia to patient and precautions of acid reflux symptoms, such as avoiding eating just before bed, etc. The patient acknowledges the above. I have answered all questions to the patient s satisfaction and the patient has no further questions. I have confirmed and edited as necessary, the PFSH and ROS obtained by others. . Diagnoses: (K22.81) Esophageal polyp (primary encounter diagnosis) - completely removed Return to Clinic: The patient to return to clinic if any worsening signs/symptoms. Patient to return to PCP for medical care. I spent a total of 14 minutes on the date of the service which included preparing to see the patient with review of any pertinent laboratory studies/radiological imaging/medical records, [id number] patient care, obtaining oral medical history from the patient in this encounter, counseling and educating the patient/family/caregiver, and completing appropriate medical documentation. Dinorah Fenton MD documented in this encounter [facility] 01-31-2023 Note HNO ID: [id number] Author: Tameka Houston RN Service: Nursing Author Type: Registered Nurse Type: Nursing Progress Note Filed: 01/31/2023 7:53 AM Note Text: Pt resting comfortably. Denies questions or concerns. Call light within reach. [facility] 01-24-2023 Nurse Note Images from the original note were not included. Pre-Procedure Checklist Regulo Enriquez [phone] (home) 1975 47 year old Body mass index is 34.91 kg/m . 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 No Recent EKG/Cardiac Testing: no Chest pain in the last 6 months (<6 months cardiac clearance needed): No History of: Heart Attack/Stroke/Blood Clot?: no Shortness of Breath: No Asthma: No Inhalers: No Any Outstanding Consults?: No If yes, list: Additional Notes: Previous colonoscopy patient states she was nauseous and woke up during the procedure. documented in this encounter [facility] 01-12-2023 Miscellaneous Notes Patient returned call and went over results, notes from Dorothea Baumann PROFESSIONAL HOUSING CONSULTANT with understanding. Assisted with transfer to lath tier to get appt set up. Called and left a voicemail for the Patient to call back and ask for a nurse to receive the providers message. Ketty Zhao RN Can please let patient know that we received her mammogram results. They are requesting additional images of the left breast. The orders are in. Please help schedule. documented in this encounter [facility] 01-09-2023 Miscellaneous Notes January 09, 2023 PID: [id number] Regulo LaneCesilia Enriquez [address] [place] [address] Dear Zoe, Your recent breast imaging exam on 01/08/2023 showed a possible finding that requires additional imaging studies for a complete evaluation. Most such findings are probably benign (not cancer). Your mammogram demonstrates that you have dense breast tissue, which could hide abnormalities. Dense breast tissue, in and of itself, is a relatively common condition. Therefore, this information is not provided to cause undue concern; rather, it is to raise your awareness and promote discussion with your health care provider regarding the presence of dense breast tissue in addition to other risk factors. If you have a healthcare provider who ordered/prescribed your screening mammogram: Please call [phone] or [phone]: [phone] to schedule an appointment for your additional imaging (if you have not already done so). If you DO NOT have a healthcare provider (ie you did not have an order/prescription for your screening mammogram): Please call to schedule an appointment for your additional imaging (if you have not already done so). You must have an order/prescription from your physician when calling to schedule your appointment. If your order/prescription is not electronic, you must bring the hard copy with you on the day of your exam to avoid delays. Your imaging studies and reports are kept on file at [facility] as part of your permanent medical record, and are available for your continuing care. Thank you for allowing us to help in meeting your health care needs. Sincerely, Dr. Celaya Interpreting Radiologist [facility] (Additional imaging) documented in this encounter [facility] 01-09-2023 Nurse Note REVIEW OF SYSTEMS: General: The patient denies fatigue, denies weight loss, NOTES weight gain, denies feeling hot, and denies feelings of cold. Eyes: The patient denies glaucoma, denies eye injury/surgery, wears glasses or contacts. Ear/Nose/Throat: The patient denies allergies, NOTES hayfever, denies ear infections, and NOTES bloody noses. Cardiovascular: The patient denies chest pain, denies heart disease, denies high blood pressure,denies cardiac stent, denies prior heart attack, denies irregular heart beat, denies high cholesterol, denies poor circulation, denies heart failure, other cardiac issues, denies claudication, denies cold feet, denies peripheral arterial stent. Respiratory: The patient denies tuberculosis, denies pneumonia, denies frequent cough, denies pulmonary embolism, denies shortness of breath, and denies coughing up blood. Gastrointestinal: The patient denies difficulty swallowing, NOTES acid reflux, denies ulcers, denies vomiting, denies jaundice/hepatitis, denies gallbladder problems, denies black or tarry stools, NOTES hemorrhoids, NOTES bleeding from rectum, denies diverticulitis, NOTES constipation, denies diarrhea, denies loss of stool control, and denies hernias. Kidney/Bladder: The patient denies kidney stones, denies urine infections, and denies bloody urine. Skin: The patient denies a history of skin cancer, denies bleeding/changing moles, and denies a history of skin rash. Neurologic: The patient denies a history of epilepsy/convulsions, NOTES headaches, denies head/spinal injuries, and denies stroke/TIA. Psychiatric: The patient denies psychiatric medications, denies depression, and denies voices, denies substance abuse. Endocrine: The patient denies thyroid disorders, denies diabetes, and denies hormonal problems. Hematologic: The patient NOTES a history of bruising, denies bleeding, and denies anemia, denies blood clots. Infections: The patient denies a history of measles and mumps, denies rheumatic fever, and denies sexually transmitted diseases. Musculoskeletal: The patient denies back pain/injury, denies back problems, NOTES sciatica, NOTES knee/foot trouble, denies arthritis, or denies gout. When was patient's last Mammogram screening? 01/08/2023 Last Colonoscopy: 10/28/2002 Agnes Claire RN documented in this encounter [facility] 01-09-2023 History of Presen t illness Narrative HISTORY AND PHYSICAL Regulo Enriquez 1975 REFERRING PHYSICIAN: Dorothea Baumann APRN.C* CHIEF COMPLAINT: Consult (Heartburn and colonoscopy consult. ) HPI: The patient is a 47 year old female referred for endoscopy. Regulo notes long-term issues with constipation. Reports she has had surgeries for hemorrhoids and anal fissures in the past including a sphincterotomy. Patient denies any change in bowel habits, weight changes, blood in stools, black tarry stools or abdominal pain. Denies family history of colon issues. The patient notes no upper GI complaints. Regulo states she did have a colonoscopy years ago for rectal bleeding and that she experienced significant discomfort and recall with that procedure. Patient notes nausea with sedation. Denies chest pain, shortness of breath or recent hospitalizations. PAST MEDICAL HISTORY Diagnosis Date Anal fissure RECTAL BLEEDING, PELVIC FLOOR DYSFUNCTION Calcaneal spur Endometriosis Hiatal hernia refers hx of flap not working properly. PMH - PAST MEDICAL HISTORY OF PELVIC FLOOR DYSFUNCTION Unspecified hemorrhoids without mention of complication PAST SURGICAL HISTORY Procedure Laterality Date DELIVERY ONLY , low cervical COLONOSCOPY 10/28/2002 FASCIECTOMY PLANTAR FASCIA PARTIAL SPX 06/12/2014 DR Best FISSURECTOMY INCL SPHINCTEROTOMY WHEN PERFORMED HEMORRHOIDECTOMY NTRNL & XTRNL 1 COLUMN/GROUP INSERT INTRAUTERINE DEVICE 10/04/2006 Mirena KNEE SURGERY HX Left 08/2020 torn meniscus and some repair work. LAPS ABD PRTM&OMENTUM DX W/WO SPEC BR/WA SPX Laparoscopy X2 EXPLORATORY LIG/TRNSXJ FLP TUBE ABDL/VAG APPR UNI/BI VAGINAL HYSTERECTOMY UTERUS 250 GM/< 08/14/2007 Hysterectomy, vaginal Current Outpatient Medications Medication Sig COMPOUNDED PRESCRIPTION Taking Plexis supplement for colon, multivitamin and probiotic daily No current facility-administered medications for this visit. ALLERGIES: Metronidazole, Mobic [Meloxicam], Percocet [Oxycodone-Acetaminophen], and Sodium PERSONAL HISTORY: Social History Tobacco Use Smoking status: Never Smokeless tobacco: Never Substance Use Topics Alcohol use: No Drug use: No FAMILY HISTORY: FAMILY HISTORY Problem Relation Age of Onset other (ULCERATIVE COLITIS [Other]) Maternal Aunt other (HYDROCEPHALY [Other]) Other Pat Cousin other (CVA [Other]) Paternal Grandfather other (Other [Other]) Other No breast/technical implementation lead/colon cancer REVIEW OF SYMPTOMS: The review of systems data was entered by the nurse and reviewed by pr Nursing Notes: Agnes Claire RN 01/09/2023 10:28 AM Signed REVIEW OF SYSTEMS: General: The patient denies fatigue, denies weight loss, NOTES weight gain, denies feeling hot, and denies feelings of cold. Eyes: The patient denies glaucoma, denies eye injury/surgery, wears glasses or contacts. Ear/Nose/Throat: The patient denies allergies, NOTES hayfever, denies ear infections, and NOTES bloody noses. Cardiovascular: The patient denies chest pain, denies heart disease, denies high blood pressure,denies cardiac stent, denies prior heart attack, denies irregular heart beat, denies high cholesterol, denies poor circulation, denies heart failure, other cardiac issues, denies claudication, denies cold feet, denies peripheral arterial stent. Respiratory: The patient denies tuberculosis, denies pneumonia, denies frequent cough, denies pulmonary embolism, denies shortness of breath, and denies coughing up blood. Gastrointestinal: The patient denies difficulty swallowing, NOTES acid reflux, denies ulcers, denies vomiting, denies jaundice/hepatitis, denies gallbladder problems, denies black or tarry stools, NOTES hemorrhoids, NOTES bleeding from rectum, denies diverticulitis, NOTES constipation, denies diarrhea, denies loss of stool control, and denies hernias. Kidney/Bladder: The patient denies kidney stones, denies urine infections, and denies bloody urine. Skin: The patient denies a history of skin cancer, denies bleeding/changing moles, and denies a history of skin rash. Neurologic: The patient denies a history of epilepsy/convulsions, NOTES headaches, denies head/spinal injuries, and denies stroke/TIA. Psychiatric: The patient denies psychiatric medications, denies depression, and denies voices, denies substance abuse. Endocrine: The patient denies thyroid disorders, denies diabetes, and denies hormonal problems. Hematologic: The patient NOTES a history of bruising, denies bleeding, and denies anemia, denies blood clots. Infections: The patient denies a history of measles and mumps, denies rheumatic fever, and denies sexually transmitted diseases. Musculoskeletal: The patient denies back pain/injury, denies back problems, NOTES sciatica, NOTES knee/foot trouble, denies arthritis, or denies gout. When was patient's last Mammogram screening? 01/08/2023 Last Colonoscopy: 10/28/2002 Agnes Claire RN I have confirmed and edited as necessary, the PFSH and ROS obtained by others. Ketty Peña PA-C PHYSICAL EXAMINATION: General: The patient is 47 year old female, well nourished, well hydrated in no acute distress. The patient is oriented to time, place, and person. VITALS: Blood pressure 118/66, pulse 97, temperature 36.6 C (97.8 F), height 166.4 cm (5' 5.5), weight 96.6 kg (213 lb), last menstrual period 10/03/2006, SpO2 97 %. There is no height or weight on file to calculate BMI. HEENT: Normal cephalic, ataumatic, pupils are equally round, sclera are anicteric, mucous membranes are moist, oropharynx is clear. Neck has no masses, asymmetry or lymphadenopathy. Respiratory: Clear to auscultation and percussion. Normal respiratory excursion and pattern. Cardiac: Examination is regular rate and rhythm. Normal S1/S2 Abdominal exam: Soft, nontender, with no palpable masses. No hepatosplenomegaly. No palpable hernias. Extremities: no clubbing, cyanosis or edema. No adenopathy. LABORATORY VALUES: As Noted RADIOLOGIC STUDIES: As Noted Assessment IMPRESSION: hiatal hernia, family history of esophageal issues, GERD PLAN: I have reviewed my findings with the surgeon. Will plan for upper and lower endoscopy. We discussed the risks and benefits of the planned endoscopy. I have informed the patient that complications can occur including failure to complete the endoscopy and perforation. The patient had the opportunity to ask questions concerning the planned endoscopy. My staff has also explained the procedure to the patient in understandable terms and has given the patient printed material concerning the procedure. The patient freely consents to surgery. I plan to use Miralax bowel preparation The patient has recall from their previous endoscopy performed under conscious sedation, therfore we will plan for procedure to be performed under Monitored Anesthetic Care. Patient also noted nausea with sedation-advised patient to make anesthesia aware of this upon arrival so she may be premedicated for nausea Diagnoses: (R12) Heartburn (Z12.11) Screening for colon cancer Consultation requested by Dorothea Baumann CNP for an opinion regarding screening colonoscopy and GERD. My final recommendations will be communicated back to the requesting physician by way of shared Medical record or letter to requesting physician via US mail. Ketty Peña PA-C documented in this encounter [facility] 01-08-2023 History of Presen t illness Narrative Radiology Service Progress Note PATIENT NAME: Regulo Enriquez DATE OF SERVICE: January 08, 2023 TIME: 1:52 PM PATIENT IDENTITY VERIFICATION COMPLETED USING TWO (2) IDENTIFIERS: Name and Date of confirmed by patient verbally. FALL SCREENING: Has the patient had 2 falls in the last year or 1 fall with injury or currently using an Ambulatory Assistive Device (Walker, Cane, Wheelchair, Crutches, etc.)? No PATIENT GENDER DATA: Female. status: : No status: NO. PATIENT RELEVANT IMPLANT DATA REVIEWED: Not Applicable RADIOLOGY DEPARTMENT: Mammography PERIPHERAL IV DATA: Not applicable SIGNED BY: RT Madeleine(R) January 08, 2023 1:52 PM documented in this encounter [facility] 07-01-2022 History of Presen t illness Narrative This is an Express Care eVisit note for Regulo Enriquez eVisit/Questionnaire reviewed The chief complaint for the visit - Patient presents with: Sinus Problem Recommendations/Treatment plan - Rx as below plus self care. See My Chart Message to patient. Recommendation for follow up - PRN The following approved medication requests have been transmitted electronically. Requested Prescriptions Signed Prescriptions Disp Refills amoxicillin-clavulanic acid (AUGMENTIN) 875-125 mg per tablet 10 tablet 0 Sig: Take 1 tablet by mouth twice daily for 5 days. Time spend was 5 minutes. Haroon Charles APRN.BARAK documented in this encounter [facility] 03-21-2022 Miscellaneous Notes Form taken to Med Rec's Updated. Zaki Gaitan LPN Can we please add her immunizations to her chart? documented in this encounter [facility] 03-14-2022 Miscellaneous Notes Pt notified. She verbalized understanding. Zaki Gaitan LPN Her form is just asking if she was immunized. So, I guess if she is able to obtain and bring in vaccine records, we would be able to sign off. Patient returned call and given Dorothea's response below. Patient states she is thankful for Dorothea's recommendation and does not want to sound disrespectful but states she is hesitant is getting revaccinated at this time for personal reasons. She is asking Dorothea, at this point, does she have any other options then getting revaccinated to get her employer physical form signed? Patient reports she is considering trying to retrieve her MMR vaccination records from the provider she saw when she was a child but is unsure if that is possible. If she can locate this record, would Dorothea sign off on her physical form re: MMR record? Please advise. Thank you. TC to pt. LM to call office, ask for triage nurse to get results. Tanika Fernández LPN I would still recommend getting revaccinated because of not having immunity. I would sign the paper as soon as we started the series and we should be able to get her in pretty quickly to get boosted. Spoke with pt and information listed below given. Pt has a question: If she can prove she had the vaccinations in the past will that be enough to get paper work signed? Or does she have to be vaccinated again before papers can be signed. Please advise pt. Nicolette Thomas LPN Can please let patient know that I received her test results. She does not have immunity to the mumps. She will need repeat vaccines. Please help set up a nurse visit for the vaccine. Her other labs look okay. Your cholesterol panel is a little elevated. No need for cholesterol lowering medications. Just following a healthy diet and exercise will do. For diet, please focus on: - More lean meats like chicken, fish, turkey rather than red meats - Less carbs and when having carbs, more complex carbs such as beans, wheat or multigrain and brown rice - more vegetables - health fats such as olive oil, nuts, avocados For exercise: Please try and aim for a goal of 30 min a day most days of the week with a goal of 150min/wk. Brisk walking is plenty, if you can increase it later, then that is good, but if you are going from little or no exercise to this new routine, I do not want you to go too extreme. If you already exercise, I encourage you to try and do a little more than what you have been doing. The 10-year ASCVD risk score ([place] ANDERS Jr., et al., 2013) is: 1.1% Values used to calculate the score: Age: 46 years Sex: Female Is Non- : No Diabetic: No Tobacco smoker: No Systolic Blood Pressure: 124 mmHg Is BP treated: No HDL Cholesterol: 52 mg/dL Total Cholesterol: 238 mg/dL documented in this encounter [facility] 03-07-2022 Instructions Dorothea Baumann APRN.CNP - 03/07/2022 12:07 PM EDT 1. Return for fasting labs. 2. Let me know re: mammogram. 3. I'll let you know when I receive labs back and forms are done. Health Promotion: - Eat healthy go to [employer] to get started - Have a yearly physical - Mammogram yearly after age 40 - Get at least 30 minutes of physical activity daily - Get at least 7 to 8 hours of sleep each night - Reach and maintain a healthy weight - Get help to quit or don't start smoking - Limit alcohol use to one drink or less - Do not use illegal drugs or misuse prescription drugs - Wear a helmet when riding a bike and wear protective gear for sports - Wear a seatbelt in cars and not text and drive - Wear sunscreen documented in this encounter [facility] 03-07-2022 History of Presen t illness Narrative This is a 46 year old female who presents today with: Patient presents with: Physical HISTORY OF PRESENT ILLNESS: Regulo Enriquez is a 46 year old female. Patient presents with: Physical Pt presents today for wellness exam. REVIEW OF SYSTEMS GENERAL: No weight loss, malaise or fevers/chills HEENT: Negative for frequent or significant headaches, No changes in hearing or vision. NECK: Negative for lumps, goiter, pain and significant neck swelling RESPIRATORY: Negative for cough, hemoptysis, wheezing, dyspnea or shortness of breath CARDIOVASCULAR: Negative for chest pain, leg swelling, orthopnea, or palpitations GI: No nausea, vomiting, or diarrhea/constipation. No hematochezia/melena. + heartburn. Reports Tums at night keeps symptoms controlled. No family hx of colon CA. Reports hx of scope and had hiatal hernia. Reports no problems with swallow, but reports multiple family members have condition where food will become lodged in esophagus and have to go to the ER to get removed. : No history of dysuria, frequency or incontinence. Refers some stress incontinence. Uses a pantiliner. MUSCULOSKELETAL: Negative for joint pain or swelling. SKIN: Negative for lesions, rash, and itching ENDOCRINE: Negative for cold or heat intolerance, polydipsia and goiter NEURO: No history of headaches, syncope, paralysis, seizures or tremors Depression Screening 01/06/2016 04/22/2017 04/21/2018 03/07/2022 PHQ-2 Score 0 0 0 0 LYDIA-2 Total Score - 0 0 - Depression screening tool completed and reviewed. Based on score and interview, patient is not at risk for depression. Screening tool discussed with patient, and I recommended no further intervention at this time. Refers that family hx of dysphagia. PAST MEDICAL HISTORY: PAST MEDICAL HISTORY Diagnosis Date Anal fissure RECTAL BLEEDING, PELVIC FLOOR DYSFUNCTION Calcaneal spur Endometriosis PMH - PAST MEDICAL HISTORY OF PELVIC FLOOR DYSFUNCTION Unspecified hemorrhoids without mention of complication PAST SURGICAL HISTORY Procedure Laterality Date DELIVERY ONLY , low cervical FASCIECTOMY PLANTAR FASCIA PARTIAL SPX 06/12/2014 DR Best FISSURECTOMY INCL SPHINCTEROTOMY WHEN PERFORMED HEMORRHOIDECTOMY NTRNL & XTRNL 1 COLUMN/GROUP INSERT INTRAUTERINE DEVICE 10/04/2006 Mirena KNEE SURGERY HX Left 08/2020 torn meniscus and some repair work. LAPS ABD PRTM&OMENTUM DX W/WO SPEC BR/WA SPX Laparoscopy X2 EXPLORATORY LIG/TRNSXJ FLP TUBE ABDL/VAG APPR UNI/BI VAGINAL HYSTERECTOMY UTERUS 250 GM/< 08/14/2007 Hysterectomy, vaginal ALLERGIES Metronidazole, Mobic [Meloxicam], Percocet [Oxycodone-Acetaminophen], and Sodium MEDICATIONS Current Outpatient Medications Medication Sig fluticasone (FLONASE) 50 mcg/actuation nasal spray Use 1 Leland in each nostril daily at bedtime. COMPOUNDED PRESCRIPTION Taking Plexis supplement for colon, multivitamin and probiotic daily No current facility-administered medications for this visit. FAMILY HISTORY Problem Relation Age of Onset other (ULCERATIVE COLITIS [Other]) Maternal Aunt other (HYDROCEPHALY [Other]) Unknown Pat Cousin other (CVA [Other]) Paternal Grandfather other (Other [Other]) Unknown No breast/technical implementation lead/colon cancer Social History Tobacco Use Smoking status: Never Smoker Smokeless tobacco: Never Used Substance Use Topics Alcohol use: No Drug use: No EXAM: BP 124/70 Pulse 88 Resp (!) 95 Ht 165.1 cm (5' 5) Wt 96.6 kg (213 lb) LMP 10/03/2006 BMI 35.45 kg/m PHYSICAL EXAM: General Appearance: Well appearing, alert, in no acute distress, well-hydrated, well nourished.. Skin: Skin color, texture, turgor normal, no suspicious rashes or lesions. Head: Normocephalic, no masses, lesions, tenderness or abnormalities. Eyes: Anicteric sclera. Pupils are equally round and reactive to light. Extraocular movements are intact. . Ears: External ears normal, canals clear. Oropharynx: Lips, mucosa, and tongue normal, teeth and gums normal, oropharynx normal. Neck: Supple, no adenopathy; thyroid symmetric, normal size, no bruits. Lungs: Lungs clear to auscultation. No wheezing, rhonchi, rales.. Heart: RRR without murmur, gallop, or rubs. No ectopy. Abdomen: Abdomen soft, non-tender. Bowel sounds normal. No masses, organomegaly. Extremities: No deformities, edema, skin discoloration, clubbing or cyanosis. Good capillary refill. . Neurologic: Gait normal. ASSESSMENT/PLAN: 1. Wellness examination - ICD9: V70.0, ICD10: Z00.00 (primary diagnosis) - Follow up for annual exam in one year - RUBEOLA (MEASLES)IGG - MUMPS IGG AB - RUBELLA IGG AB - LIPID PANEL BASIC - COMP METABOLIC PANEL - CBC + DIFF She will let us know when she needs mammogram order. Health Promotion: - Eat healthy go to [employer] to get started - Have a yearly physical - Mammogram yearly after age 40 - Get at least 30 minutes of physical activity daily - Get at least 7 to 8 hours of sleep each night - Reach and maintain a healthy weight - Get help to quit or don't start smoking - Limit alcohol use to one drink or less - Do not use illegal drugs or misuse prescription drugs - Wear a helmet when riding a bike and wear protective gear for sports - Wear a seatbelt in cars and not text and drive - Wear sunscreen 2. Special screening examination for viral disease - ICD9: V73.99, ICD10: Z11.59 - HEP C AB IA W/CONF SCRN 3. Screening for HIV (human immunodeficiency virus) - ICD9: V73.89, ICD10: Z11.4 - HIV 1 2 COMBO(AG/AB),WITH REFLEX TO DIFFERENTIATION 4. Stress incontinence - ICD9: [id number], ICD10: N39.3 Discussed kegals. Avoid bladder irritants. 5. Heartburn - ICD9: 787.1, ICD10: R12 Controlled with tums. She will be due for routine colonoscopy soon. Consider EGD as well, d/t patient with hx of hiatal hernia and family hx of dysphagia. Discussed treatment plan and patient voices understanding. Patient's questions answered appropriately. Medications and potential side effects were discussed and patient voices understanding. Return to the office as scheduled or as needed for worsening/no improvement. This note was partially generated using [employer] voice recognition system. Note was reviewed for accuracy. There may be minor misspellings or grammar miscues with [employer] voice recognition. Dorothea Baumann APRN.BARAK documented in this encounter [facility] Evaluation note Diagnosis Wellness examination- Primary Special screening examination for viral disease Special screening examination for unspecified viral disease Screening for HIV (human immunodeficiency virus) Special screening examination for other specified viral diseases Stress incontinence Female stress incontinence Heartburn [facility] Diagnosis Acute rhinosinusitis- Primary Acute sinusitis, unspecified documented in this encounter [facility] note* Diagnosis Heartburn Screening for colon cancer Special screening for malignant neoplasms, colon documented in this encounter [facility] note* Diagnosis Inconclusive mammogram- Primary documented in this encounter [facility] note* Diagnosis Esophageal polyp- Primary Other specified disorder of the esophagus documented in this encounter [facility] note* Diagnosis Inconclusive mammogram documented in this encounter [facility] note* Diagnosis Encounter for screening mammogram for breast cancer documented in this encounter [facility] note* Diagnosis Encounter for screening mammogram for breast cancer documented in this encounter [facility] note* Diagnosis Wellness examination- Primary Heartburn OAB (overactive bladder) Hypertonicity of bladder documented in this encounter [facility] note* Diagnosis Hyperlipidemia, mixed- Primary Mixed hyperlipidemia Leukocytosis, unspecified type documented in this encounter [facility] note* Diagnosis Encounter for screening mammogram for breast cancer documented in this encounter [facility] note* Diagnosis Esophageal polyp Other specified disorder of the esophagus documented in this encounter [facility] for referral (narrative)* Diagnostic Procedure Only (Routine) - Pending Review Specialty Diagnoses / Procedures Referred By Rajwinder de guzman Referred To Contact [facility] Diagnoses Inconclusive mammogram Procedures US BREAST LTD LEFT US BREAST UNI REAL TIME WITH IMAGE LIMITED Dorothea Baumann APRN.HOOP RIVETING MACHINE OPERATOR HELPER [address] [place] [address] [facility] [id number] [place] [address] Referral ID Status Reason Start Date Expiration Date Visits Requested Visits Authorized [id number] Pending Review Auto-Generat ed Referral 01/11/2023 02/10/2024 1 1 * Diagnostic Procedure Only (Routine) - Pending Review Specialty Diagnoses / Procedures Referred By Rajwinder de guzman Referred To Contact [facility] Diagnoses Inconclusive mammogram Procedures BONY DIAGNOSTIC LEFT DIAGNOSTIC MAMMOGRAPHY COMPUTER-AIDED DETCJ UNI Dorothea Baumann APRN.CNP [address] [place] [address] [facility] [address] [place] [address] Referral ID Status Reason Start Date Expiration Date Visits Requested Visits Authorized [id number] Pending Review Auto-Generat ed Referral 01/11/2023 02/10/2024 1 1 [facility] Diagnostic Procedure Only (Routine) - Closed Specialty Diagnoses / Procedures Referred By Marshallac t Referred To Contact [facility] Diagnoses Inconclusive mammogram Procedures US BREAST LTD LEFT US BREAST UNI REAL TIME WITH IMAGE LIMITED Dorothea Baumann APRN.HOOP RIVETING MACHINE OPERATOR HELPER [address] [place] [address] [facility] [address] [place] [address] Referral ID Status Reason Start Date Expiration Date V isits Requested Visits Authorized [id number] Closed Auto-Generate d Referral 02/20/2023 08/11/2023 1 1 [facility] Diagnostic Procedure Only (Routine) - Closed Specialty Diagnoses / Procedures Referred By Rajwinder t Referred To Contact [facility] Diagnoses Encounter for screening mammogram for breast cancer Procedures BONY SCREENING SCREENING MAMMOGRAPHY BI 2-VIEW BREAST INC CAD Dorothea Bauamnn APRN.HOOP RIVETING MACHINE OPERATOR HELPER [address] [place] [address] [facility] [address] [place] [address] Referral ID Status Reason Start Date Expiration Date V isits Requested Visits Authorized [id number] Closed Auto-Generate d Referral 01/08/2023 08/11/2023 1 1 [facility] Diagnostic Procedure Only (Routine) - New Request Specialty Diagnoses / Procedures Referred By Contac t Referred To Contact [facility] Diagnoses Encounter for screening mammogram for breast cancer Procedures BONY SCREENING W KYARA SCREENING DIGITAL BREAST TOMOSYNTHESIS BI SCREENING MAMMOGRAPHY BI 2-VIEW BREAST INC CAD Dorothea Baumann APRN.HOOP RIVETING MACHINE OPERATOR HELPER [address] [place] [address] [facility] [address] [place] [address] Referral ID Status Reason Start Date Expiration Date Visits Requested Visits Authorized [id number] New Request Auto-Generat ed Referral 02/19/2024 03/20/2025 1 1 [facility] for visit Narrative* Diagnostic Procedure Only (Routine) - Closed Specialty Diagnoses / Procedures Referred By Contmaynor t Referred To Contact [facility] Diagnoses Encounter for screening mammogram for breast cancer Procedures BONY SCREENING SCREENING MAMMOGRAPHY BI 2-VIEW BREAST INC CAD Dorothea Baumann, VALENTIN.HOOP RIVETING MACHINE OPERATOR HELPER [address] [place] [address] [facility] [address] [place] [address] Referral ID Status Reason Start Date Expiration Date V isits Requested Visits Authorized [id number] Closed Auto-Generate d Referral 01/08/2023 08/11/2023 1 1 [facility] for visit Narrative* Consult, Test, Treat (Routine) - Closed Specialty Diagnoses / Procedures Referred By Rajwinder de guzman Referred To Contact [facility] Diagnoses Encounter for screening mammogram for breast cancer Procedures BONY SCREENING W KYARA SCREENING DIGITAL BREAST TOMOSYNTHESIS BI SCREENING MAMMOGRAPHY BI 2-VIEW BREAST INC CAD Dorothea Baumann, MANAGER ACQUISITION.HOOP RIVETING MACHINE OPERATOR HELPER [address] [place] [address] Phone: tel: fax: [facility] [address] [place] [address] Referral ID Status Reason Start Date Expiration Date V isits Requested Visits Authorized [id number] Closed Auto-Generate d Referral 02/01/2025 08/11/2025 1 1 [facility] Summary Purpose Family History No Family History Records FoundNo Family History Records FoundNo Family History Records FoundNo Family History Records Found Advance Directives No Advanced Directives Records FoundNo Advanced Directives Records FoundNo Advanced Directives Records FoundNo Advanced Directives Records Found Additional Source Comments INFORMATION SOURCE (unrecogn ized section and content) DATE CREATED AUTHOR 08/18/2020 [facility] ([place]) DATE CREATED AUTHOR AUTHOR'S ORGANIZ ATION 02/04/2023 [facility] DATE CREATED AUTHOR AUTHOR'S ORGANIZ ATION 03/10/2024 [facility] DATE CREATED AUTHOR AUTHOR'S ORGANIZ ATION 02/04/2025 [facility] Source Comments (unrecognize d section and content) In the event this informatio n is protected by the Federal Confidentiality of Alcohol and Drug Abuse Patient Records regulations: The Federal rules restrict any use of the information to criminally investigate or prosecute any alcohol or drug abuse patient.[facility] the event this information is protected by the Federal Confidentiality of Alcohol and Drug Abuse Patient Records regulations: The Federal rules restrict any use of the information to criminally investigate or prosecute any alcohol or drug abuse patient.[facility] the event this information is protected by the Federal Confidentiality of Alcohol and Drug Abuse Patient Records regulations: The Federal rules restrict any use of the information to criminally investigate or prosecute any alcohol or drug abuse patient.[facility] the event this information is protected by the Federal Confidentiality of Alcohol and Drug Abuse Patient Records regulations: The Federal rules restrict any use of the information to criminally investigate or prosecute any alcohol or drug abuse patient.[facility] the event this information is protected by the Federal Confidentiality of Alcohol and Drug Abuse Patient Records regulations: The Federal rules restrict any use of the information to criminally investigate or prosecute any alcohol or drug abuse patient.[facility] the event this information is protected by the Federal Confidentiality of Alcohol and Drug Abuse Patient Records regulations: The Federal rules restrict any use of the information to criminally investigate or prosecute any alcohol or drug abuse patient.[facility] the event this information is protected by the Federal Confidentiality of Alcohol and Drug Abuse Patient Records regulations: The Federal rules restrict any use of the information to criminally investigate or prosecute any alcohol or drug abuse patient.[facility] the event this information is protected by the Federal Confidentiality of Alcohol and Drug Abuse Patient Records regulations: The Federal rules restrict any use of the information to criminally investigate or prosecute any alcohol or drug abuse patient.[facility] the event this information is protected by the Federal Confidentiality of Alcohol and Drug Abuse Patient Records regulations: The Federal rules restrict any use of the information to criminally investigate or prosecute any alcohol or drug abuse patient.[facility] the event this information is protected by the Federal Confidentiality of Alcohol and Drug Abuse Patient Records regulations: The Federal rules restrict any use of the information to criminally investigate or prosecute any alcohol or drug abuse patient.[facility] the event this information is protected by the Federal Confidentiality of Alcohol and Drug Abuse Patient Records regulations: The Federal rules restrict any use of the information to criminally investigate or prosecute any alcohol or drug abuse patient.[facility] the event this information is protected by the Federal Confidentiality of Alcohol and Drug Abuse Patient Records regulations: The Federal rules restrict any use of the information to criminally investigate or prosecute any alcohol or drug abuse patient.[facility] the event this information is protected by the Federal Confidentiality of Alcohol and Drug Abuse Patient Records regulations: The Federal rules restrict any use of the information to criminally investigate or prosecute any alcohol or drug abuse patient.[facility] the event this information is protected by the Federal Confidentiality of Alcohol and Drug Abuse Patient Records regulations: The Federal rules restrict any use of the information to criminally investigate or prosecute any alcohol or drug abuse patient.[facility] the event this information is protected by the Federal Confidentiality of Alcohol and Drug Abuse Patient Records regulations: The Federal rules restrict any use of the information to criminally investigate or prosecute any alcohol or drug abuse patient.[facility] the event this information is protected by the Federal Confidentiality of Alcohol and Drug Abuse Patient Records regulations: The Federal rules restrict any use of the information to criminally investigate or prosecute any alcohol or drug abuse patient.[facility] Reason for Visit (unrecogniz ed section and content) Reason Comments Physical Specialty Diagnoses / Procedures Referred By Rajwinder de guzman Referred To Contact Family Practice / FAMILY MEDICINE Diagnoses Encounter for general adult medical examination without abnormal findings To fill out physical paperwork-work & insurance. Procedures OFFICE/OUTPATIENT ESTABLISHED MOD MDM 30-39 MIN [facility] Dorothea Baumann APRN.HOOP RIVETING MACHINE OPERATOR HELPER [address] [place] [address] Dorothea Baumann APRN.HOOP RIVETING MACHINE OPERATOR HELPER [address] [place] [address] Referral ID Status Reason Start Date Expiration Date Visits Re quested Visits Authorized [id number] Closed 03/07/2022 08/11/2022 1 1 Reason Comments Results Reason Comments Sinus Problem Reason Comments Consult Heartburn and colono scopy consult. Specialty Diagnoses / Procedures Referred By Rajwinder de guzman Referred To Contact General Surgery Diagnoses Heartburn Screening for colon cancer Procedures CONSULT TO GENERAL SURGERY OFFICE/OUTPATIENT [facility] MDM 60-74 MINUTES Dorothea Baumann APRN.HOOP RIVETING MACHINE OPERATOR HELPER [address] [place] [address] [place] [address] Referral ID Status Reason Start Date Expiration Date V isits Requested Visits Authorized [id number] Closed PCP Requested Referral 01/09/2023 08/11/2023 1 1 Reason Comments Results Reason Comments Follow Up Colonoscopy and EGD Specialty Diagnoses / Procedures Referred By Rajwinder de guzman Referred To Contact General Surgery / GENERAL SURGERY Diagnoses Follow-up examination 2 week follow up Procedures OFFICE/OUTPATIENT ESTABLISHED MOD MDM 30-39 MIN EST [facility]DI PATIENT Dinorah Fenton MD [address] [place] [address] Dinorah Fenton MD [address] [place] [address] Referral ID Status Reason Start Date Expiration Date Visits Re quested Visits Authorized [id number] Closed 02/18/2023 08/11/2023 1 1 Reason Comments Radiology US Specialty Diagnoses / Procedures Referred By Contac t Referred To Contact [facility] Diagnoses Inconclusive mammogram Procedures US BREAST LTD LEFT US BREAST UNI REAL TIME WITH IMAGE LIMITED Dorothea Baumann APRN.HOOP RIVETING MACHINE OPERATOR HELPER [address] [place] [address] [facility] [address] [place] [address] Referral ID Status Reason Start Date Expiration Date V isits Requested Visits Authorized [id number] Closed Auto-Generate d Referral 02/20/2023 08/11/2023 1 1 Reason Comments Yearly Exam Reason Comments Consult Specialty Diagnoses / Procedures Referred By Contac t Referred To Contact General Surgery Diagnoses Esophageal polyp Procedures CONSULT TO GENERAL SURGERY OFFICE/OUTPATIENT [facility] MDM 60 MINUTES Dorothea Baumann APRN.HOOP RIVETING MACHINE OPERATOR HELPER [address] [place] [address] Phone: tel: fax: Referral ID Status Reason Start Date Expiration Date V isits Requested Visits Authorized [id number] Closed PCP Requested Referral 01/12/2025 01/12/2026 1 1 Care Teams (unrecognized sec tion and content) 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 Relationship Specialty Start Date End Date Dorothea Baumann APRN.HOOP RIVETING MACHINE OPERATOR HELPER [address] [place], [place] [address] PCP - General Family Practice 03/15/21 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 Relationship Specialty Start Date End Date Dorothea Baumann APRN.HOOP RIVETING MACHINE OPERATOR HELPER [address] [place], [place] [id number] PCP - General Family Practice 03/15/21 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 Relationship Specialty Start Date End Date Dorothea Baumann, MANAGER ACQUISITION.HOOP RIVETING MACHINE OPERATOR HELPER [address] [place] [address] PCP - General Family Practice 03/15/21 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 Relationship Specialty Start Date End Date Dorothea Baumann, MANAGER ACQUISITION.HOOP RIVETING MACHINE OPERATOR HELPER [address] [place] [address] PCP - General Family Medicine 03/15/21 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 Relationship Specialty Start Date End Date Dorothea Baumann, MANAGER ACQUISITION.HOOP RIVETING MACHINE OPERATOR HELPER [address] [place] [address] PCP - General Family Medicine 03/15/21 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 Relationship Specialty Start Date End Date Dorothea Baumann, MANAGER ACQUISITION.HOOP RIVETING MACHINE OPERATOR HELPER [address] [place] [address] PCP - General Family Medicine 03/15/21 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 Relationship Specialty Start Date End Date Dorothea Baumann, MANAGER ACQUISITION.HOOP RIVETING MACHINE OPERATOR HELPER [address] [place] [address] PCP - General Family Medicine 03/15/21 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 Relationship Specialty Start Date End Date Dorothea Baumann, MANAGER ACQUISITION.HOOP RIVETING MACHINE OPERATOR HELPER [address] [place] [address] PCP - General Family Medicine 03/15/21 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 Relationship Specialty Start Date End Date Dorothea Baumann, MANAGER ACQUISITION.HOOP RIVETING MACHINE OPERATOR HELPER [address] [place] [address] PCP - General Family Medicine 03/15/21 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 Relationship Specialty Start Date End Date Dorothea Baumann, MANAGER ACQUISITION.HOOP RIVETING MACHINE OPERATOR HELPER [address] [place] [address] PCP - General Family Medicine 03/15/21 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 Relationship Specialty Start Date End Date Dorothea Baumann, MANAGER ACQUISITION.HOOP RIVETING MACHINE OPERATOR HELPER [address] [place] [address] PCP - General Family Medicine 03/15/21 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 Relationship Specialty Start Date End Date Dorothea Baumann, MANAGER ACQUISITION.HOOP RIVETING MACHINE OPERATOR HELPER [address] [facility] [place] [address] PCP - General Family Medicine 03/15/21 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 Relationship Specialty Start Date End Date Dorothea Baumann, MANAGER ACQUISITION.HOOP RIVETING MACHINE OPERATOR HELPER [address] [facility] [place] [address] PCP - General Family Medicine 03/15/21 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 Relationship Specialty Start Date End Date Dorothea Baumann, MANAGER ACQUISITION.HOOP RIVETING MACHINE OPERATOR HELPER [address] [facility] [place] [address] PCP - General Family Medicine 03/15/21 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 Relationship Specialty Start Date End Date Dorothea Baumann, MANAGER ACQUISITION.HOOP RIVETING MACHINE OPERATOR HELPER [address] [place] [address] PCP - General Family Medicine 03/15/21 FOR RECORDS PERTAINING TO PATIENTS WHO ARE OR HAVE BEEN ENROLLED IN A CHEMICAL DEPENDENCY/SUBSTANCEABUSE PROGRAM, SOME INFORMATION MAY BE OMITTED. This clinical summary was aggregated from multiple sources. Caution should be exercised in using it in the provision of clinical care. This summary normalizes information from multiple sources, and as a consequence, information in this document may materially change the coding, format and clinical context of patient data. In addition, data may be omitted in some cases. CLINICAL DECISIONS SHOULD BE BASED ON THE PRIMARY CLINICAL RECORDS. [employer] [facility]. provides no warranty or guarantee of the accuracy or completeness of information in this document.
== END | disposition home or self-care (01) ==
LOC: LABSPEC 15:18
PROVIDERS: Referring Provider Surgery; Visit Provider Surgery
DX: K22.81 Esophageal polyp (principal)
CPT/HCPCS: 88305; 88342